=== PATIENT | female | born 2000 | race Caucasian/White ===

== ENCOUNTER 2025-05-26 16:20 | Outpatient (CLI) | payer OTHER, SELFPAY ==
--- OUTSIDE RECORDS SUMMARY | 2025-05-26 16:31 | XMS RPT_ITS | CCD ---
Author Organization [facility] Inform ion Partnership [facility] Care Team Providers Care [employer] Lab Technician Name Role Phone Unavailable Primary Care Provider Unavailabl e Plotts, Corrie Referring Unavailable Plotts, Corrie Attending Unavailable Plotts, Corrie Admitting Unavailable Care Physician, No Primary Primary Care Unava Mary Culp Attending Unavailable Kaiser OROURKE, Ramiro Attending Unavailable PLOTTS, CORRIE Attending Unavailable PLOTTS, CORRIE Attending Unavailable AIDA, BOUCHRA Attending Unavailable PLOTTS, CORRIE Attending Unavailable PLOTTS, CORRIE Attending Unavailable PLOTTS, CORRIE Referring Unavailable PLOTTS, CORRIE Referring Unavailable JUAN DANIEL, RAFAL L Attending Unavailable PLOTTS, CORRIE Referring Unavailable JUAN DANIEL, RAFAL L Attending Unavailable JUAN DANIEL, RAFAL L Attending Unavailable PLOTTS, CORRIE Attending Unavailable PLOTTS, CORRIE Referring Unavailable PLOTTS, CORRIE Attending Unavailable PLOTTS, CORRIE Referring Unavailable HANH HINES Attending Unavail able PLOTTS, CORRIE Attending Unavailable PLOTTS, CORRIE Attending Unavailable PLOTTS, CORRIE Attending Unavailable Medications Current Medications Medication Drug Class(es) Dates Sig (Normalized) Sig (Original) aspirin 81 mg delayed release oral tablet (13 sources) Platelet Aggregation Inhibitor, Nonsteroidal Anti-inflammatory Drug Start: 10-04-2024 take 1 tablet by mouth once daily aspirin, enteric coated (ECOTRIN LOW STRENGTH) 81 mg EC tablet Indications: with uncertain dates in first trimester (HCC) Take 1 tablet by mouth once daily. 90 tablet 3 10/04/2024 Active vits62/FA/om3/dha /epa ( GUMMY ORAL) (13 sources) vits62/FA/om3/dh a/epa ( GUMMY ORAL) Take by mouth. 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] Onset: 05-15-2025 Chronic Other complications of (3 sources) RhD negative; Translations: [Other specified related conditions, unspecified trimester] 02-26-2025 Episodic Other complications of (1 source) Other specified related conditions, unspecified trimester; Translations: [Rh negative state in antepartum period (HCC)] Onset: 04-22-2025 Episodic Other and delivery including normal (20 sources) with uncertain dates; Translations: [Encounter for supervision of normal , unspecified, first trimester] Onset: 10-04-2024 10-04-2024 Episodic Other upper respiratory disease (1 source) Other seasonal allergic rhinitis; Translations: [Other seasonal allergic rhinitis] Onset: 05-28-2024 Chronic Residual codes; unclassified (2 sources) Gestation period, 13 weeks; Translations: [13 weeks gestation of ] 11-14-2024 Episodic Residual codes; unclassified (1 source) Gestation period, 17 weeks; Translations: [17 weeks gestation of ] 12-12-2024 Episodic Residual codes; unclassified (1 source) Gestation period, 20 weeks; Translations: [20 weeks gestation of ] 01-01-2025 Episodic Residual codes; unclassified (1 source) Gestation period, 25 weeks; Translations: [25 weeks gestation of ] 02-05-2025 Episodic Residual codes; unclassified (1 source) Gestation period, 28 weeks; Translations: [28 weeks gestation of ] 02-26-2025 Episodic Residual codes; unclassified (1 source) Gestation period, 30 weeks; Translations: [30 weeks gestation of ] 03-14-2025 Episodic Residual codes; unclassified (1 source) Gestation period, 32 weeks; Translations: [32 weeks gestation of ] 03-29-2025 Episodic Residual codes; unclassified (1 source) 39 weeks gestation of ; Translations: [39 weeks gestation of (HCC)] Onset: 05-15-2025 Episodic Residual codes; unclassified (1 source) 38 weeks gestation of ; Translations: [38 weeks gestation of (HCC)] Onset: 05-09-2025 Episodic Residual codes; unclassified (1 source) 37 weeks gestation of ; Translations: [37 weeks gestation of (HCC)] Onset: 05-02-2025 Episodic Residual codes; unclassified (1 source) Unspecified blood type, Rh negative; Translations: [Rh negative state in antepartum period (HCC)] Onset: 04-22-2025 Episodic Residual codes; unclassified (1 source) 35 weeks gestation of ; Translations: [35 weeks gestation of (HCC)] Onset: 04-22-2025 Episodic Residual codes; unclassified (1 source) 34 weeks gestation of ; Translations: [34 weeks gestation of (HCC)] Onset: 04-10-2025 Episodic Residual codes; unclassified (1 source) 32 weeks gestation of ; Translations: [32 weeks gestation of (HCC)] Onset: 03-29-2025 Episodic Residual codes; unclassified (1 source) 30 weeks gestation of ; Translations: [30 weeks gestation of (HCC)] Onset: 03-14-2025 Episodic Residual codes; unclassified (1 source) 28 weeks gestation of ; Translations: [28 weeks gestation of (HCC)] Onset: 02-26-2025 Episodic Unclassified (13 sources) [facility] Education - COMMON Onset: 10-04-2024 10-04-2024 Unclassified (13 sources) Education - [place] Onset: 10-04-2024 10-04-2024 Unclassified (1 source) Acute cough; Translations: [Acute cough] Onset: 05-28-2024 Unclassified (1 source) Rubella non-immune status, antepartum ([facility]); Translations: [Rubella non-immune status, antepartum ([facility])] Onset: 11-15-2024 Past or Other Problems Problem Classification Problem Date Documented Da te Episodic/Chronic Immunizations and screening for infectious disease (5 sources) Patient encounter status; Translations: [Encounter for screening for human papillomavirus (HPV)] Onset: 07-20-2024 10-04-2024 Episodic Other complications of (14 sources) Rubella non-immune; Translations: [Supervision of other high risk pregnancies, unspecified trimester] Onset: 11-15-2024 11-15-2024 Episodic Other complications of (1 source) Supervision of other high risk pregnancies, unspecified trimester; Translations: [Rubella non-immune status, antepartum (HCC)] Onset: 11-15-2024 Episodic Other gastrointestinal disorders (1 source) Dysphagia, unspecified; Translations: [Dysphagia, unspecified] Onset: 05-28-2024 Episodic Other screening for suspected conditions (not mental disorders or infectious disease) (2 sources) Cancer cervix screening status; Translations: [Encounter for screening for malignant neoplasm of cervix] Onset: 01-01-2025 10-04-2024 Episodic Other upper respiratory infections (1 source) Acute sinusitis, unspecified; Translations: [Acute sinusitis, unspecified] Onset: 07-20-2024 Episodic Residual codes; unclassified (14 sources) Gestation period, 7 weeks; Translations: [Less than 8 weeks gestation of ] Onset: 10-04-2024 Resolved: 02-05-2025 10-04-2024 Episodic Residual codes; unclassified (1 source) 25 weeks gestation of ; Translations: [25 weeks gestation of (HCC)] Onset: 02-05-2025 Episodic Residual codes; unclassified (1 source) 20 weeks gestation of ; Translations: [20 weeks gestation of (HCC)] Onset: 01-01-2025 Episodic Residual codes; unclassified (1 source) 17 weeks gestation of ; Translations: [17 weeks gestation of (HCC)] Onset: 12-12-2024 Episodic Residual codes; unclassified (1 source) 13 weeks gestation of ; Translations: [13 weeks gestation of (HCC)] Onset: 11-14-2024 Episodic Results Test Name Value Interpretation Reference Range Facil ity ROUTINE, GROUP B ST REPTOCOCCUS BY PCRon 04-22-2025 ROUTINE, GROUP B STREPTOCOCCUS BY PCR Not detected Normal [facility] Comment on above: Performed By: #### T SPN #### [facility] CLIA [id number] [address] [place] [address] [place] CNPBanner 03-04-2025 CNPN Telephone (OBGYWM) REBAROSAS Marin ([id number]) 4 F Date Time Provider Department 03/04/25 CORRIE GARCIA OBGYWM During your visit today, we recorded the following information about you: Molly Romero RN 03/04/2025 9:11 AM Signed Breast pump order received from [facility]. To to sign. MARIA LUZ Agudelo Lindsey, RN 03/06/2025 10:36 AM Signed Order signed and faxed. Caitlyn Kahn RN Allergies As of Date: 03/04/2025 (No Known Allergies) Date Reviewed: 02/26/2025 Reviewed by: Carl Spicer LPN - Fully Assessed Reason for Visit: Breast Pump [Other] Prescriptions as of 03/06/2025 - aspirin, enteric coated (ECOTRIN LOW STRENGTH) 81 mg EC tablet Take 1 tablet by mouth once daily. - vits62/FA/om3/dha/epa ( GUMMY ORAL) Take by mouth. Facility-Administered Medications as of 03/06/2025 - RhoD immune globulin 300 mcg injection (RHOPHYLAC) Problem List As Of Date 03/04/2025 Noted Resolved Encounter for supervision of normal first pregn*10/04/2024 Uncomplicated asthma [J45.909] 10/04/2024 7 weeks gestation of (HCC) [Z3A.01] 10/04/2024 02/05/2025 Rubella non-immune status, antepartum (HCC) [O0*11/15/2024 Encounter Status:Closed by CAITLYN KAHN on 03/06/25 Normal [facility] CBC W Auto Differential pane l (Bld)on 02-26-2025 Basophils (Bld) [#/Vol] 0.03 10*3/uL Normal <0.11 [facility] Comment on above: Order Comment: Speci men Type: BLOOD SPECIMEN Ordering Facility: [facility] Address: [address] [place] [address] Performed By: #### T SPN #### [facility] CLIA [id number] [address] [place] [address] [place] Basophils/100 WBC (Bld) 0.3 % Normal [facility] Comment on above: Order Comment: Speci men Type: BLOOD SPECIMEN Ordering Facility: [facility] Address: [address] [place] [address] Performed By: #### T SPN #### [facility] CLIA [id number] [address] [place] [address] [place] Differential cell count method Nom (Bld) Auto Normal [facility] Comment on above: Order Comment: Speci men Type: BLOOD SPECIMEN Ordering Facility: [facility] Address: [address] [place] [address] Performed By: #### T SPN #### [facility] CLIA [id number] [address] [place] [address] [place] Eosinophils (Bld) [#/Vol] 0.09 10*3/uL Normal <0.46 [facility] Comment on above: Order Comment: Speci men Type: BLOOD SPECIMEN Ordering Facility: [facility] Address: [address] [place] [address] Performed By: #### T SPN #### [facility] CLIA [id number] [address] [place] [address] [place] Eosinophils/100 WBC (Bld) 1.0 % Normal [facility] Comment on above: Order Comment: Speci men Type: BLOOD SPECIMEN Ordering Facility: [facility] Address: [address] [place] [address] Performed By: #### T SPN #### [facility] CLIA [id number] [address] [place] [address] [place] Erythrocyte distribution width (RBC) [Ratio] 12.1 % Normal 11.5-15.0 [facility] Comment on above: Order Comment: Speci men Type: BLOOD SPECIMEN Ordering Facility: [facility] Address: [address] [place] [address] Performed By: #### T SPN #### [facility] CLIA [id number] [address] [place] [address] [place] Hematocrit (Bld) [Volume fraction] 31.6 % Low 36.0-46.0 [facility] Comment on above: Order Comment: Speci men Type: BLOOD SPECIMEN Ordering Facility: [facility] Address: [address] [place] [address] Performed By: #### T SPN #### [facility] CLIA [id number] [address] [place] [address] [place] Hemoglobin (Bld) [Mass/Vol] 11.2 g/dL Low 11.5-15.5 [facility] Comment on above: Order Comment: Speci men Type: BLOOD SPECIMEN Ordering Facility: [facility] Address: [address] [place] [address] Performed By: #### T SPN #### [facility] CLIA [id number] [address] [place] [address] [place] Immature granulocytes (Bld) [#/Vol] 0.04 10*3/uL Normal <0.10 [facility] Comment on above: Order Comment: Speci men Type: BLOOD SPECIMEN Ordering Facility: [facility] Address: [address] [place] [address] Performed By: #### T SPN #### [facility] CLIA [id number] [address] [place] [address] [place] Immature granulocytes/100 WBC (Bld) 0.5 % Normal [facility] Comment on above: Order Comment: Speci men Type: BLOOD SPECIMEN Ordering Facility: [facility] Address: [address] [place] [address] Performed By: #### T SPN #### [facility] CLIA [id number] [address] [place] [address] [place] Lymphocytes (Bld) [#/Vol] 1.77 10*3/uL Normal 1.00-4.00 [facility] Comment on above: Order Comment: Speci men Type: BLOOD SPECIMEN Ordering Facility: [facility] Address: [address] [place] [address] Performed By: #### T SPN #### [facility] CLIA [id number] [address] [place] [address] [place] Lymphocytes/100 WBC (Bld) 20.5 % Normal [facility] Comment on above: Order Comment: Speci men Type: BLOOD SPECIMEN Ordering Facility: [facility] Address: [address] [place] [address] Performed By: #### T SPN #### [facility] CLIA [id number] [address] [place] [address] [place] MCH (RBC) [Entitic mass] 30.2 pg Normal 26.0-34.0 [facility] Comment on above: Order Comment: Speci men Type: BLOOD SPECIMEN Ordering Facility: [facility] Address: [address] [place] [address] Performed By: #### T SPN #### [facility] CLIA [id number] [address] [place] [address] [place] MCHC (RBC) [Mass/Vol] 35.4 g/dL Normal 30.5-36.0 [facility] Comment on above: Order Comment: Speci men Type: BLOOD SPECIMEN Ordering Facility: [facility] Address: [address] [place] [address] Performed By: #### T SPN #### [facility] CLIA [id number] [address] [id number] [address] [place] MCV (RBC) [Entitic vol] 85.2 fL Normal 80.0-100.0 [facility] Comment on above: Order Comment: Speci men Type: BLOOD SPECIMEN Ordering Facility: [facility] Address: [address] [place] [address] Performed By: #### T SPN #### [facility] CLIA [id number] [address] [place] [address] [place] Monocytes (Bld) [#/Vol] 0.47 10*3/uL Normal <0.87 [facility] Comment on above: Order Comment: Speci men Type: BLOOD SPECIMEN Ordering Facility: [facility] Address: [address] [place] [address] Performed By: #### T SPN #### [facility] CLIA [id number] [address] [place] [address] [place] Monocytes/100 WBC (Bld) 5.4 % Normal [facility] Comment on above: Order Comment: Speci men Type: BLOOD SPECIMEN Ordering Facility: [facility] Address: [address] [place] [address] Performed By: #### T SPN #### [facility] CLIA [id number] [address] [place] [address] [place] Neutrophils (Bld) [#/Vol] 6.24 10*3/uL Normal 1.45-7.50 [facility] Comment on above: Order Comment: Speci men Type: BLOOD SPECIMEN Ordering Facility: [facility] Address: [address] [place] [address] Performed By: #### T SPN #### [facility] CLIA [id number] [address] [place] [address] [place] Neutrophils/100 WBC (Bld) 72.3 % Normal [facility] Comment on above: Order Comment: Speci men Type: BLOOD SPECIMEN Ordering Facility: [facility] Address: [address], [place] [address] Performed By: #### T SPN #### [facility] CLIA [id number] [address] [place] [address] [place] Nucleated RBC (Bld) [#/Vol] 10*3/uL Normal <0.01 [facility] Comment on above: Order Comment: Speci men Type: BLOOD SPECIMEN Ordering Facility: [facility] Address: [address] [place] [address] Performed By: #### T SPN #### [facility] CLIA [id number] [address] [place] [address] [place] Nucleated RBC/100 WBC (Bld) [Ratio] 0.0 /100 WBC Normal [facility] Comment on above: Order Comment: Speci men Type: BLOOD SPECIMEN Ordering Facility: [facility] Address: [address] [place] [address] Performed By: #### T SPN #### [facility] CLIA [id number] [address] [place] [address] [place] Platelet mean volume (Bld) [Entitic vol] 8.6 fL Low 9.0-12.7 [facility] Comment on above: Order Comment: Speci men Type: BLOOD SPECIMEN Ordering Facility: [facility] Address: [address] [place] [address] Performed By: #### T SPN #### [facility] CLIA [id number] [address] [place] [address] [place] Platelets (Bld) [#/Vol] 170 10*3/uL Normal 150-400 [facility] Comment on above: Order Comment: Speci men Type: BLOOD SPECIMEN Ordering Facility: [facility] Address: [address] [place] [address] Performed By: #### T SPN #### [facility] CLIA [id number] [address] [place] [address] [place] RBC (Bld) [#/Vol] 3.71 10*6/uL Low 3.90-5.20 [facility] Comment on above: Order Comment: Speci men Type: BLOOD SPECIMEN Ordering Facility: [facility] Address: [address] [place] [address] Performed By: #### T SPN #### [facility] CLIA [id number] [address] [place] [address] [place] WBC (Bld) [#/Vol] 8.64 10*3/uL Normal 3.70-11.00 [facility] Comment on above: Order Comment: Speci men Type: BLOOD SPECIMEN Ordering Facility: [facility] Address: [address] [place] [address] Performed By: #### T SPN #### [facility] CLIA [id number] [address] [place] [address] [place] GESTATIONAL GLUCOSE SCREEN, 1-HOUR, 50 GRAM, NON-FASTINGon 02-26-2025 Glucose [Mass/Vol] 108 mg/dL Normal 74-134 [facility] Comment on above: Order Comment: Speci men Type: BLOOD SPECIMEN Ordering Facility: [facility] Address: [address] [place] [address] Result Comment: [facility] Congress of Obstetricians and Gynecologists (Jose/Linda) guidelines state a gestational diabetes mellitus positive screen is made, in women not previously diagnosed with overt diabetes, when the 1 hr plasma glucose level is equal to or above 140 mg/dL. The [facility] Director Information and [facility] [place] recommends a 135 mg/dL cutoff. Performed By: #### T SPN #### [facility] CLIA [id number] [address] [place] [address] [place] Reagin and Treponema pallidu m IgG and IgM [Interp]on 02-26-2025 T. pallidum IgG+IgM IA Ql (S) Non-Reactive Normal Nonreactive [facility] Comment on above: Order Comment: Speci men Type: BLOOD SPECIMEN Ordering Facility: [facility] Address: [address] [place] [address] Performed By: #### T SPN #### [facility] CLIA [id number] [address] [place] [address] [place] Reagin+T pallidum IgG+IgM Se rPl-Impon 02-26-2025 Reagin and Treponema pallidum IgG and IgM [Interp] Cannot exclude recent Treponemal infection if specimen collected within 7-10 days after appearance of suspect lesions or 2-3 weeks after an exposure. Clinical correlation is required. Normal [facility] Comment on above: Order Comment: Speci men Type: BLOOD SPECIMEN Ordering Facility: [facility] Address: [address] [place] [address] Performed By: #### T SPN #### [facility] CLIA [id number] [address] [place] [address] [place] TYPE + SCREEN PRENATALon ABO A Normal [facility] Comment on above: Order Comment: Speci men Type: BLOOD SPECIMEN Ordering Facility: [facility] Address: [address] [place] [address] Performed By: #### T SPN #### [facility] CLIA [id number] [address] [place] [address] [place] Rh Nom (Bld) Negative Normal [facility] Comment on above: Order Comment: Speci men Type: BLOOD SPECIMEN Ordering Facility: [facility] Address: [address] [place] [address] Performed By: #### T SPN #### [facility] CLIA [id number] [address] [place] [address] [place] TYPE AND SCREEN EXPIRATION 03/01/2025 23:59 Normal [facility] Comment on above: Order Comment: Speci men Type: BLOOD SPECIMEN Ordering Facility: [facility] Address: [address] [place] [address] Performed By: #### T SPN #### [facility] CLIA [id number] [address] [place], [place] [address], [place] [address] [place] Examination level ultrasound on 01-01-2025 Indication Standard anatomic survey Impression The patient is referred for a standard anatomic survey. - Single, live, intrauterine . - biometry is consistent with the established gestational age. - No malformations were visualized on a complete standard anatomic survey. - The amniotic fluid volume is normal amount. - The placenta is posterior, fundal. - The Transabdominal cervical length measures 38.3 mm with no evidence of funneling or other dynamic changes. - Not all structural malformations can be detected by ultrasound examination. Recommendations Additional follow-up as clinically indicated. Maternal Assessment Height 173 cm Height (ft) 5 ft Height (in) 8 in Physical Exam Initial weight (lb) 172 lb Initial BMI 26.15 kg/m Maternal assessment other: 1 Para 0 REMOTE READ Method Transabdominal ultrasound examination. View: Adequate visualization Mccain . Number of fetuses: 1 Dating LMP on: 08/08/2024 GA by LMP 20 w + 6 d JOSE A by LMP: 05/15/2025 GA by prior assessment 20 w + 0 d JOSE A by prior assessment: 05/21/2025 Ultrasound examination on: 01/01/2025 GA by U/S based upon: AC, BPD, Femur, HC GA by U/S 20 w + 2 d JOSE A by U/S: 05/19/2025 Assigned: based on stated JOSE A, selected on 01/01/2025 Assigned GA 20 w + 0 d Assigned JOSE A: 05/21/2025 General Evaluation Cardiac activity present. FHR 159 bpm. movements: present, present. Presentation: breech Placenta: Placental site: posterior, fundal Umbilical cord: Cord vessels: 3 vessel cord Amniotic fluid: Amount of AF: normal amount. MVP 5.2 cm Growth Overview Exam date GA BPD (mm) HC (mm) AC (mm) FL (mm) HL (mm) EFW (g) 01/01/2025 20w 0d 45.6 41% 176.3 54% 167.5 92% 30.5 43% 30.4 57% 366 79% Biometry Standard BPD 45.6 mm 19w 5d 41% Hadlock OFD 64.1 mm 20w 3d 89% Nicolaides HC 176.3 mm 20w 1d 54% Luz Marina Cerebellum tr 21.3 mm 20w 1d 81% Hill Nuchal fold 3.0 mm AC 167.5 mm 21w 5d 92% Hadlock Femur 30.5 mm 19w 4d 43% Luz Marina Humerus 30.4 mm 20w 0d 57% Luz Marina EFW 366 g 20w 4d 79% Hadlock EFW (lb) 0 lb EFW (oz) 13 oz EFW by: Hadlock (HC-AC-FL) Extended Matchbook Maker 5.8 mm CM 5.2 mm 56% Nicolaides Extremities / Bony Struc FL / HC 0.17 5% Hadlock Other Structures FHR 159 bpm Anatomy Cranium: normal Lateral ventricles: normal Choroid plexus: normal Midline falx: normal Cavum septi pellucidi: normal Cerebellum: normal Cisterna magna: normal Head / Neck Vermis: Normal but not required for a standard anatomy exam Neck: Normal but not required for a standard anatomy exam Nuchal fold: Normal but not required for a standard anatomy exam Lips: normal Profile: Normal but not required for a standard anatomy exam Nose: Normal but not required for a standard anatomy exam Face Maxilla: Normal but not required for a standard anatomy exam Mandible: Normal but not required for a standard anatomy exam Orbits: Normal but not required for a standard anatomy exam Lens: Normal but not required for a standard anatomy exam 4-chamber view: normal RVOT view: normal LVOT view: normal 3-vessel view: normal 6-[id number]-[id number] view: normal Heart / Thorax Situs: situs solitus (normal) Aortic arch view: Normal but not required for a standard anatomy exam SVC: Normal but not required for a standard anatomy exam IVC: Normal but not required for a standard anatomy exam Cardiac axis: normal Rt lung: Normal but not required for a standard anatomy exam Lt lung: Normal but not required for a standard anatomy exam Diaphragm: normal Cord insertion: normal Stomach: normal Kidneys: normal Bladder: normal Genitals: normal Abdomen Abdom. wall: normal Cervical spine: normal Thoracic spine: normal Lumbar spine: normal Sacral spine: normal Arms: normal Legs: normal Rt upper arm: normal Rt forearm: normal Rt hand: normal Rt fingers: normal Lt upper arm: normal Lt forearm: normal Lt hand: normal Lt fingers: normal Rt upper leg: normal Rt lower leg: normal Rt foot: normal Lt upper leg: normal Lt lower leg: normal Lt foot: normal Gender: Unspecified Wants to know sex: no Maternal Structures Uterus / Cervix Uterus: Visualized Cervix: Visualized Approach: Transabdominal Cervical length 38.3 mm Other: Patient declined transvaginal ultrasound for cervical length. Ovaries / Tubes / Adnexa Rt ovary: Visualized Lt ovary: Visualized Performed By: Caitlyn Irving RDMS, RVT Read By: Rhonda Rashid M.D. MATERNAL MEDICINE [facility] Radiology Study observation (narrative) [facility] CBC W Auto Differential pane l (Bld)on 11-14-2024 Basophils (Bld) [#/Vol] 0.04 10*3/uL Normal <0.11 [facility] Comment on above: Order Comment: Speci men Type: BLOOD SPECIMEN Ordering Facility: [facility] Address: [address] [place] [address] Performed By: #### T SPN #### [facility] CLIA [id number] [address] [place] [address] [place] Basophils/100 WBC (Bld) 0.5 % Normal [facility] Comment on above: Order Comment: Speci men Type: BLOOD SPECIMEN Ordering Facility: [facility] Address: [address] [place] [address] Performed By: #### T SPN #### [facility] CLIA [id number] [address] [place] [address] [place] Differential cell count method Nom (Bld) Auto Normal [facility] Comment on above: Order Comment: Speci men Type: BLOOD SPECIMEN Ordering Facility: [facility] Address: [address] [place] [address] Performed By: #### T SPN #### [facility] CLIA [id number] [address] [place] [address] [place] Eosinophils (Bld) [#/Vol] 0.10 10*3/uL Normal <0.46 [facility] Comment on above: Order Comment: Speci men Type: BLOOD SPECIMEN Ordering Facility: [facility] Address: [address] [place] [address] Performed By: #### T SPN #### [facility] CLIA [id number] [address] [place] [address] [place] Eosinophils/100 WBC (Bld) 1.1 % Normal [facility] Comment on above: Order Comment: Speci men Type: BLOOD SPECIMEN Ordering Facility: [facility] Address: [address] [place] [address] Performed By: #### T SPN #### [facility] CLIA [id number] [address] [place] [address] [place] Erythrocyte distribution width (RBC) [Ratio] 11.9 % Normal 11.5-15.0 [facility] Comment on above: Order Comment: Speci men Type: BLOOD SPECIMEN Ordering Facility: [facility] Address: [address] [place] [address] Performed By: #### T SPN #### [facility] CLIA [id number] [address] [place] [address] [place] Hematocrit (Bld) [Volume fraction] 36.2 % Normal 36.0-46.0 [facility] Comment on above: Order Comment: Speci men Type: BLOOD SPECIMEN Ordering Facility: [facility] Address: [address] [place] [address] Performed By: #### T SPN #### [facility] CLIA [id number] [address] [place] [address] [place] Hemoglobin (Bld) [Mass/Vol] 12.9 g/dL Normal 11.5-15.5 [facility] Comment on above: Order Comment: Speci men Type: BLOOD SPECIMEN Ordering Facility: [facility] Address: [address] [place] [address] Performed By: #### T SPN #### [facility] CLIA [id number] [address] [place] [address] [place] Immature granulocytes (Bld) [#/Vol] 0.03 10*3/uL Normal <0.10 [facility] Comment on above: Order Comment: Speci men Type: BLOOD SPECIMEN Ordering Facility: [facility] Address: [address] [place] [address] Performed By: #### T SPN #### [facility] CLIA [id number] [address] [place] [address] [place] Immature granulocytes/100 WBC (Bld) 0.3 % Normal [facility] Comment on above: Order Comment: Speci men Type: BLOOD SPECIMEN Ordering Facility: [facility] Address: [address] [place] [address] Performed By: #### T SPN #### [facility] CLIA [id number] [address] [place] [address] [place] Lymphocytes (Bld) [#/Vol] 1.94 10*3/uL Normal 1.00-4.00 [facility] Comment on above: Order Comment: Speci men Type: BLOOD SPECIMEN Ordering Facility: [facility] Address: [address] [place] [address] Performed By: #### T SPN #### [facility] CLIA [id number] [address] [place] [address] [place] Lymphocytes/100 WBC (Bld) 22.1 % Normal [facility] Comment on above: Order Comment: Speci men Type: BLOOD SPECIMEN Ordering Facility: [facility] Address: [address] [place] [address] Performed By: #### T SPN #### [facility] CLIA [id number] [address] [place] [address] [place] MCH (RBC) [Entitic mass] 28.9 pg Normal 26.0-34.0 [facility] Comment on above: Order Comment: Speci men Type: BLOOD SPECIMEN Ordering Facility: [facility] Address: [address] [place] [address] Performed By: #### T SPN #### [facility] CLIA [id number] [address] [place] [address] [place] MCHC (RBC) [Mass/Vol] 35.6 g/dL Normal 30.5-36.0 [facility] Comment on above: Order Comment: Speci men Type: BLOOD SPECIMEN Ordering Facility: [facility] Address: [address] [place] [address] Performed By: #### T SPN #### [facility] CLIA [id number] [address] [place] [address] [place] MCV (RBC) [Entitic vol] 81.0 fL Normal 80.0-100.0 [facility] Comment on above: Order Comment: Speci men Type: BLOOD SPECIMEN Ordering Facility: [facility] Address: [address] [place] [address] Performed By: #### T SPN #### [facility] CLIA [id number] [address] [place] [address] [place] Monocytes (Bld) [#/Vol] 0.53 10*3/uL Normal <0.87 [facility] Comment on above: Order Comment: Speci men Type: BLOOD SPECIMEN Ordering Facility: [facility] Address: [address] [place] [address] Performed By: #### T SPN #### [facility] CLIA [id number] [address] [place] [address] [place] Monocytes/100 WBC (Bld) 6.0 % Normal [facility] Comment on above: Order Comment: Speci men Type: BLOOD SPECIMEN Ordering Facility: [facility] Address: [address] [place] [address] Performed By: #### T SPN #### [facility] CLIA [id number] [address] [place] [address] [place] Neutrophils (Bld) [#/Vol] 6.14 10*3/uL Normal 1.45-7.50 [facility] Comment on above: Order Comment: Speci men Type: BLOOD SPECIMEN Ordering Facility: [facility] Address: [address] [place] [address] Performed By: #### T SPN #### [facility] CLIA [id number] [address] [place] [address] [place] Neutrophils/100 WBC (Bld) 70.0 % Normal [facility] Comment on above: Order Comment: Speci men Type: BLOOD SPECIMEN Ordering Facility: [facility] Address: [address] [place] [address] Performed By: #### T SPN #### [facility] CLIA [id number] [address] [place] [address] [place] Nucleated RBC (Bld) [#/Vol] 10*3/uL Normal <0.01 [facility] Comment on above: Order Comment: Speci men Type: BLOOD SPECIMEN Ordering Facility: [facility] Address: [address] [place] [address] Performed By: #### T SPN #### [facility] CLIA [id number] [address] [place] [address] [place] Nucleated RBC/100 WBC (Bld) [Ratio] 0.0 /100 WBC Normal [facility] Comment on above: Order Comment: Speci men Type: BLOOD SPECIMEN Ordering Facility: [facility] Address: [address] [place] [address] Performed By: #### T SPN #### [facility] CLIA [id number] [address] [place] [address] [place] Platelet mean volume (Bld) [Entitic vol] 9.3 fL Normal 9.0-12.7 [facility] Comment on above: Order Comment: Speci men Type: BLOOD SPECIMEN Ordering Facility: [facility] Address: [address] [place] [address] Performed By: #### T SPN #### [facility] CLIA [id number] [address] [place] [address] [place] Platelets (Bld) [#/Vol] 176 10*3/uL Normal 150-400 [facility] Comment on above: Order Comment: Speci men Type: BLOOD SPECIMEN Ordering Facility: [facility] Address: [address] [place] [address] Performed By: #### T SPN #### [facility] CLIA [id number] [address] [place] [address] [place] RBC (Bld) [#/Vol] 4.47 10*6/uL Normal 3.90-5.20 [facility] Comment on above: Order Comment: Speci men Type: BLOOD SPECIMEN Ordering Facility: [facility] Address: [address] [place] [address] Performed By: #### T SPN #### [facility] CLIA [id number] [address] [place] [address] [place] WBC (Bld) [#/Vol] 8.78 10*3/uL Normal 3.70-11.00 [facility] Comment on above: Order Comment: Speci men Type: BLOOD SPECIMEN Ordering Facility: [facility] Address: [address] [place] [address] Performed By: #### T SPN #### [facility] CLIA [id number] [address] [place] [address] [place] Examination level ultrasound on 11-14-2024 Indication First trimester anatomic survey Impression The patient is referred for a first trimester anatomy scan including nuchal translucency measurement as clinically indicated. - Single, live, intrauterine . - Whittlesey rump length measurement is consistent with the established gestational age. - No malformations visualized on a complete first trimester anatomic assessment. - The nuchal translucency measurement is 1.8 mm. - Not all structural malformations can be detected by ultrasound examination. Maternal Structures: Right Ovary: Size 37 mm x 18 mm x 23 mm Left Ovary: Size 23 mm x 20 mm x 16 mm Recommendations Return for anatomy ultrasound Maternal Assessment Height 173 cm Height (ft) 5 ft Height (in) 8 in Physical Exam Initial weight (lb) 172 lb Initial BMI 26.15 kg/m Maternal assessment other: 1 Para 0 REMOTE READ Method Transabdominal ultrasound examination Mccain . Number of fetuses: 1 Dating LMP on: 08/08/2024 GA by LMP 14 w + 0 d JOSE A by LMP: 05/15/2025 GA by prior assessment 13 w + 1 d JOSE A by prior assessment: 05/21/2025 Ultrasound examination on: 11/14/2024 GA by U/S based upon: CRL GA by U/S 13 w + 1 d JOSE A by U/S: 05/21/2025 Assigned: based on stated JOSE A, selected on 11/14/2024 Assigned GA 13 w + 1 d Assigned JOSE A: 05/21/2025 General Evaluation Cardiac activity present Placenta: posterior Cord vessels: 3 vessel cord Amniotic fluid: normal amount Biometry Standard FHR 159 bpm CRL 68.7 mm 13w 1d 43% Hadlock NT 1.80 mm First Trimester Anatomy Calvarium: normal Falx cerebri: normal Choroid plexus: normal Profile: normal Nasal bone: normal Retronasal triangle: normal Maxilla: normal Mandible: normal Nuchal translucency: Unremarkable Situs: normal Cardiac position: normal Cardiac axis: normal 4-chamber view: visualized 4-chamber view with color: visualized 6-uaospj-mgdzcnn view: normal Abdominal cord insertion: normal Stomach: normal Kidneys: normal Bladder: normal Color doppler of perivesical umbilical arteries: normal Vertebral alignment: normal Arms: normal Hands: normal Legs: normal Feet: normal Maternal Structures Uterus / Cervix Uterus: Visualized Uterus length 111 mm Uterus width 101 mm Uterus height 84 mm Uterus Vol 494.0 cm Ovaries / Tubes / Adnexa Rt ovary: Visualized Rt ovary D1 37 mm Rt ovary D2 18 mm Rt ovary D3 23 mm Rt ovary Vol 8.0 cm Lt ovary: Visualized Lt ovary D1 23 mm Lt ovary D2 20 mm Lt ovary D3 16 mm Lt ovary Vol 3.8 cm Performed By: Caitlyn Irving RDMS, RVT Read By: Cece Brown M.D. MATERNAL MEDICINE [facility] Radiology Study observation (narrative) [facility] HBV surface Ag Ser Qlon 10-18 HBV surface Ag Ql (S) Negative Normal Negative [facility] Comment on above: Order Comment: Speci men Type: BLOOD SPECIMEN Ordering Facility: [facility] Address: [address] [place] [address] Performed By: #### T SPN #### [facility] CLIA [id number] [address] [place] [address] [place] HCV Ab Ser Qlon 11-14-2024 HCV Ab Ql (S) Negative Normal Negative [facility] Comment on above: Order Comment: Speci men Type: BLOOD SPECIMEN Ordering Facility: [facility] Address: [address] [place] [address] Result Comment: The result suggests no evidence of infection with Hepatitis C virus. Should recent infection be suspected, repeat testing may be considered 4-6 weeks after this draw. Performed By: #### T SPN #### [facility] CLIA [id number] [address] [place] [address] [place] HIV 1+2 Ab IA Qlon HIV 1 and 2 Ab IA.rapid Nom (S/P/Bld) Normal [facility] Comment on above: Order Comment: Speci men Type: BLOOD SPECIMEN Ordering Facility: [facility] Address: [address] [place] [address] Result Comment: Test not indicated. Performed By: #### T SPN #### [facility] CLIA [id number] [address] [place] [address] [place] HIV 1+2 Ab+HIV1 p24 Ag IA Ql Non-Reactive Normal Nonreactive [facility] Comment on above: Order Comment: Speci men Type: BLOOD SPECIMEN Ordering Facility: [facility] Address: [address] [place] [address] Performed By: #### T SPN #### [facility] CLIA [id number] [address] [place] [address] [place] HIV immunoassay testing algorithm interpretation (S/P/Bld) [Interp] Normal [facility] Comment on above: Order Comment: Speci men Type: BLOOD SPECIMEN Ordering Facility: [facility] Address: [address] [place] [address] Result Comment: No e vidence of HIV-1 or HIV-2 infection. Should recent infection be suspected, repeat testing may be considered 2-3 weeks after this draw. [place] Rev. Code 3701.243(E): This information has been disclosed to you from confidential records protected from disclosure by state law. You shall make no further disclosure of this information without the specific, written, and informed release of the individual to whom it pertains or as otherwise permitted by state law. A general authorization for the release of medical or other information is not sufficient for the purpose of the release of HIV test results or diagnoses. Performed By: #### T SPN #### [facility] CLIA [id number] [address] [place] [address] [place] HbA1c (Bld)on 11-14-2024 Average glucose Estimated from glycated hemoglobin (Bld) [Mass/Vol] 82 mg/dL Normal [facility] Comment on above: Order Comment: Speci men Type: BLOOD SPECIMEN Ordering Facility: [facility] Address: [address] [place] [address] Result Comment: eAG: (Estimated average glucose) is a calculated value from HgbA1c and is pest control service representative of the average blood glucose level in the last 2-3 month period. Performed By: #### T SPN #### [facility] CLIA [id number] [address] [place] [address] [place] HbA1c (Bld) [Mass fraction] 4.5 % Normal 4.3-5.6 [facility] Comment on above: Order Comment: Speci men Type: BLOOD SPECIMEN Ordering Facility: [facility] Address: [address] [place] [address] Result Comment: [place] Diabetes Association guidelines indicate that patients with HgbA1c in the range 5.7-6.4% are at increased risk for development of diabetes, and intervention by lifestyle modification may be beneficial. HgbA1c greater or equal to 6.5% is considered diagnostic of diabetes. Performed By: #### T SPN #### [facility] CLIA [id number] [address] [place] [address] [place] RUBELLA IGG ANTIBODYon 11-14 RUBELLA IGG AB, QUAL Negative Abnormal Positive [facility] Comment on above: Order Comment: Mariana sanchez Type: BLOOD SPECIMEN Ordering Facility: [facility] Address: [address] [place] [address] Result Comment: The result suggests no history of Rubella vaccination or exposure to Rubella virus, however, some individuals with past history of Rubella vaccination may test negative using this test as immunity to Rubella virus wanes over time after vaccination. Please correlate with vaccination history if applicable. Performed By: #### T SPN #### [facility] CLIA [id number] [address] [place] [address] [place] Reagin and Treponema pallidu m IgG and IgM [Interp]on 11-14-2024 T. pallidum IgG+IgM IA Ql (S) Non-Reactive Normal Nonreactive [facility] Comment on above: Order Comment: Mariana sanchez Type: BLOOD SPECIMEN Ordering Facility: [facility] Address: [address] [place] [address] Performed By: #### T SPN #### [facility] CLIA [id number] [address] [place] [address] [place] Reagin+T pallidum IgG+IgM Se rPl-Impon 11-14-2024 Reagin and Treponema pallidum IgG and IgM [Interp] Cannot exclude recent Treponemal infection if specimen collected within 7-10 days after appearance of suspect lesions or 2-3 weeks after an exposure. Clinical correlation is required. Normal [facility] Comment on above: Order Comment: Speci men Type: BLOOD SPECIMEN Ordering Facility: [facility] Address: [address] [place] [address] Performed By: #### T SPN #### [facility] CLIA [id number] [address] [place] [address] [place] TYPE + SCREEN PRENATALon ABO A Normal [facility] Comment on above: Order Comment: Speci men Type: BLOOD SPECIMEN Ordering Facility: [facility] Address: [address] [place] [address] Performed By: #### T SPN #### [facility] CLIA [id number] [address] [place] [address] [place] Rh Nom (Bld) Negative Normal [facility] Comment on above: Order Comment: Speci men Type: BLOOD SPECIMEN Ordering Facility: [facility] Address: [address] [place] [address] Performed By: #### T SPN #### [facility] CLIA [id number] [address] [place] [address] [place] TYPE AND SCREEN EXPIRATION 11/17/2024 23:59 Normal [facility] Comment on above: Order Comment: Speci men Type: BLOOD SPECIMEN Ordering Facility: [facility] Address: [address] [place] [address] Performed By: #### T SPN #### [facility] CLIA [id number] [address] [place] [address] [place] Bacteria Ur Culton Bacteria identified Cx Nom (U) ORGANISM ID: 1 10,000 -<50,000 CFU/ml Normal urogenital conner Normal [facility] Comment on above: Performed By: #### T SPN #### [facility] CLIA [id number] [address] [place] [address] [place] C. trachomatis+N. gonorrhoea e DNA LETTY+probe Ql (Unsp spec)on 10-04-2024 C. trachomatis rRNA LETTY+probe Ql (Unsp spec) Not detected Normal Not detected [facility] Comment on above: Order Comment: Speci men Type: BLOOD SPECIMEN Ordering Facility: [facility] Address: [address] [place] [address] Performed By: #### T SPN #### [facility] CLIA [id number] [address] [place] [address] OF [facility] N. gonorrhoeae rRNA LETTY+probe Ql (Unsp spec) Not detected Normal Not detected [facility] Comment on above: Order Comment: Speci men Type: BLOOD SPECIMEN Ordering Facility: [facility] Address: [address] [place] [address] Performed By: #### T SPN #### [facility] CLIA [id number] [address] [place] [address] [place] PAP TESTon 10-04-2024 ADEQUACY Normal [facility] Comment on above: Order Comment: Speci men Type: FLUID SPECIMEN Ordering Facility: [facility] Address: [address] [place] [address] Result Comment: Sati sfactory for interpretation. Transformation zone present Performed By: #### L [id number] #### [facility] CLIA [id number] [address] [place] [address] STATES [facility] CLIA [id number] [address] [place] [address] [place] CASE REPORT Normal [facility] Comment on above: Order Comment: Speci men Type: FLUID SPECIMEN Ordering Facility: [facility] Address: [address] [place] [address] Result Comment: Gyne cologic Cytology Report Case: [id number] Authorizing Provider: Corrie Garcia APRN.CNM Collected: 10/04/2024 09:34 AM Ordering Location: OB/Gynecology Received: 10/04/2024 12:21 PM First Screen: Charli, Ernestina, CT, ASCP Specimen: Pap Test, ThinPrep, Cervix Performed By: #### L [id number] #### [facility] CLIA [id number] [address] [place] [address] [place] [facility] CLIA [id number] [address] [place] [address] [place] CLINICAL HISTORY, CYTOLOGY, MARKETING ASSISTANT Routine Exam Normal [facility] Comment on above: Order Comment: Speci men Type: FLUID SPECIMEN Ordering Facility: [facility] Address: [address] [place] [address] Performed By: #### L [id number] #### [facility] CLIA [id number] [address] [place] [address] [place] [facility] CLIA [id number] [address] [place] [address] [place] FINAL PERFORMING LAB Normal [facility] Comment on above: Order Comment: Speci men Type: FLUID SPECIMEN Ordering Facility[facility] Address: [address] [place] [address] Result Comment: Tech nical component, gear nicker screening performed at [facility], [address] [place] [address] CLIA# [id number] Diagnostic interpretation performed at [facility], [address] [place] [address], [place] [address] CLIA# [id number] Loss Control Technician: Loretta Thakur M.D. Performed By: #### L [id number] #### [facility] CLIA [id number] [address] [place] [address] [place] [facility] CLIA [id number] [address] [place] [address] [place] INTERPRETATION, CYTOLOGY, MARKETING ASSISTANT Normal [facility] Comment on above: Order Comment: Speci men Type: FLUID SPECIMEN Ordering Facility: [facility] Address: [address] [place] [address] Result Comment: Nega tive for intraepithelial lesion or malignancy. at 1504 EDT Performed By: #### L [id number] #### [facility] CLIA [id number] [address] [place] [address] [place] [facility] CLIA [id number] [address] [place] [address] [place] LMP 08/08/2024 Normal [facility] Comment on above: Order Comment: Speci men Type: FLUID SPECIMEN Ordering Facility: [facility] Address: [address] [place] [address] Performed By: #### L [id number] #### [facility] CLIA [id number] [address] [place] [address] STATES OF [facility] CLIA [id number] [address] [place] [address] [place] PAP DISCLAIMER COMMENT The Pap Smear is a screening test for cervical cancer. False negative results occur with all screening tests, emphasizing the need for rescreening at recommended intervals, and clinical correlation. Normal [facility] Comment on above: Order Comment: Speci men Type: FLUID SPECIMEN Ordering Facility: [facility] Address: [address] [place] [address] Performed By: #### L [id number] #### [facility] CLIA [id number] [address] [place] [address] STATES [facility] CLIA [id number] [address] [place] [address] [place] PAP TELECOMMUNICATIONS OPERATOR COMMENT This specimen has been analyzed by the ThinPrep Imaging System, an automated imaging and review system, which assists the laboratory in evaluating cells on ThinPrep Pap tests. Following automated imaging, selected skaggs from every slide are reviewed by a gear nicker. Normal [facility] Comment on above: Order Comment: Speci men Type: FLUID SPECIMEN Ordering Facility: [facility] Address: [address] [place] [address] Performed By: #### L [id number] #### [facility] CLIA [id number] [address] [place] [address] [place] [facility] CLIA [id number] [address] [place] [address] [place] POC CORE MACHINE OPERATOR ULTRASOUNDon 10-05-19 Indication Viability; confirm cardiac activity, Uncertain dates Impression Single intrauterine gestational sac, cardiac activity is visualized, CRL indicates discrepancy from clinical dates, JOSE A based on today's ultrasound Recommendations Follow up for 1st Trimester Anatomy with Nuchal Translucency as clinically indicated if desired. Method Transvaginal ultrasound examination Mccain . Number of embryos: 1 Dating LMP on: 08/08/2024 GA by LMP 8 w + 1 d JOSE A by LMP: 05/15/2025 Ultrasound examination on: 10/04/2024 GA by U/S based upon: CRL GA by U/S 7 w + 1 d JOSE A by U/S: 05/22/2025 Assigned: based on ultrasound (CRL), selected on 10/04/2024 Assigned GA 7 w + 1 d Assigned JOSE A: 05/22/2025 Biometry Standard CRL 10.6 mm 7w 1d 92% Hadlock Assessment Gestational sac: visualized Location: intrauterine Yolk sac: visualized Embryo: visualized CRL 10.6 mm 7w 1d 92% Hadlock Cardiac activity: present General Evaluation Cardiac activity present Performed By: Corrie Garcia CNM Read By: Corrie Garcia CNM MATERNAL MEDICINE [facility] Radiology Study observation (narrative) [facility] TRICHOMONAS VAGINALIS NAATon 10-04-2024 T. vaginalis DNA LETTY+probe Ql (Unsp spec) Not detected Normal Not detected [facility] Comment on above: Order Comment: Speci men Type: BLOOD SPECIMEN Ordering Facility: [facility] Address: [address] [place] [address] Performed By: #### T SPN #### [facility] [place] [id number] [address] [place], [place] [address] [address] [place] Urgent Care Visit Reporton 0 07-20-2024 Urgent Care Visit Report [facility] [address], [address] [place] [address] OFFICE VISIT Date of Service: 07/20/24 MR#: [id number] Acct: [id number] Name: Rosas Britton Rep #: [id number] : 2000 Provider: SHARAD Drake Age/Sex: 23/F Location: [facility] Status: Signed Intake Vital Signs 07/19/23 12:13 07/20/24 16:01 Height 5 ft 4 in BP 110/60 Blood Pressure Location Lt brachial Position Sitting Respiration 16 Pulse 73 Pulse Source NIBP Temp 98.3 F Temp Source Oral Pulse Oximetry (%) 98 Oxygen Delivery Method room air Intake Visit Reasons: HEADACHE, COUGH Chief Complaint: cough, MCDANIEL, ST, congestion Readiness Paraprofessional Required: No Is patient in pain?: No Allergies No Known Allergies Allergy (Verified 07/20/24 16:01) Medications ???Medication ???Instructions ???Recorded ???Confirmed ???Type pseudoephedrine 60 mg-DM 15 1 tab PO Q4-6H PRN cold symptoms 07/20/24 07/20/24 Rx mg-guaifenesin 400 mg tablet #20 tabs (Capmist DM) Is last menstrual period known: No Post menopausal: No Patient : No Have you fallen in the past year?: No Nurse's Note: cough, MCDANIEL, ST, congestion x 3 days. denies fever/ BA HPI HPI Chief Complaint: cough, MCDANIEL, ST, congestion Details: Rosas Britton, is a 23 F who presents to the office today for complaint of cough, headache, sore throat and congestion for the past 3 days. Patient denies fever, chills, sweats. No nausea, vomiting or diarrhea. No hemoptysis, shortness of breath or difficulty breathing. No loss of taste or smell. No other associated symptoms or alleviating/aggravati ng factors. ROS Const Constitutional: Positive for other (ROS negative x6 except what was placed in HPI) Exam Const General: cooperative and healthy appearing [facility] Head: normal to inspection Ears: hearing grossly normal bilaterally, TM's normal bilaterally and EAC's normal Nose: nasal discharge purulent Face and sinus: sinus tenderness frontal and maxillary Mouth: oral mucosae normal Throat: abnormal tonsil bilaterally erythema and hypertrophy 1+ and postnasal drainage Resp Effort Inspection: normal respiratory effort Auscultation: Bilateral: Clear to Auscultation Cardio Palpation: normal PMI Rate: regular rate Rhythm: regular rhythm Neuro General: patient alert and CN's II-XI intact bilaterally Psych Appearance: grossly normal Mental Status: mental status grossly normal Results POC LUCERO Covid FluAB PCR POC Lucero Covid PCR Not Detected Last Edit by Asuncion Parra on 07/20/24 16:19 POC LUCERO FLU NOT DETECTED FLU A B Last Edit by Asuncion Parra on 07/20/24 16:19 Coding Level of Care Code Off vis,est,level 3 Diagnoses Contact with or suspected exposure to other viral communicable disease Z20.828 Acute sinusitis J01.90 Assessment and Plan Assessment and Plan (1) Contact with or suspected exposure to other viral communicable disease: Status: Acute (2) Acute sinusitis: Status: Acute Orders: Orders POC Lucero Covid FLUAB PCR Today Medications: New nhyswxsnlynsmgd-DH-vi aifenesin 60-15-400 mg (Capmist DM) do not exceed 4 doses per 24 hrs 1 TAB PO Q4-6H PRN 20 tabs 0RF cold symptoms Plan Patient tested negative for COVID and influenza in the office today. Capmist as prescribed today. Encouraged to get plenty of rest, drink lots of clear liquids, and use Tylenol or Ibuprofen (unless contraindicated) for fever and comfort. Patient also educated on other symptomatic management techniques. To be seen in 7-10 days if no improvement; sooner if worsening of symptoms. Patient advised of potential red flags and when appropriate to report to the ED. Patient verbalized understanding and agreement with all the above. Clinical Quality Measures Falls Risk Screening/Assistive Devices Have you fallen in the past year?: No 07/20/24 1629 Date Ramiro Grace Signature: Date (if applicable) CC: Normal [facility] Urgent Care Visit Reporton 1 07-19-2023 Urgent Care Visit Report [facility] [address], [address] [place] [address] OFFICE VISIT Date of Service: 05/19/24 MR#: [id number] Acct: [id number] Name: Rosas Britton Rep #: [id number] : 2000 Provider: SUNITA Ho Age/Sex: 23/F Location: [facility] Status: Signed Intake Vital Signs 05/19/24 11:03 BP 102/58 L Blood Pressure Location Lt brachial Position Sitting Respiration 15 Pulse 91 Pulse Source NIBP Temp 98.2 F Temp Source Oral Pulse Oximetry (%) 98 Oxygen Delivery Method room air Intake Visit Reasons: Cough Chief Complaint: cough Readiness Paraprofessional Required: No Is patient in pain?: No Allergies No Known Allergies Allergy (Verified 05/19/24 11:21) Medications ???Medication ???Instructions ???Recorded ???Confirmed ???Type omeprazole 20 mg capsule,delayed 20 mg PO BID 6 weeks #90 caps 05/19/24 05/19/24 Rx release Is last menstrual period known: No Post menopausal: No Patient : No Have you fallen in the past year?: No Nurse's Note: cough for over 1 month worse after eating and at bedtime. also notices more recently occasional food sticking. HPI HPI Chief Complaint: cough Details: Rosas Britton, is a 23 F who presents to the office today for cough -sx started over 1 month ago -a lot of change have happened went on honeymoon, moved into new house and got a new dog -use to get allergy shots x1 wk- none for 5 years -no fever or chills, body aches, ST -cough is dry -triggers right before bed it starts and after she eats worse -no hx of heartburn or indigestion- dad side of family with acid reflux- gets sensation that solid food getting stuck -no sob -tried so far claritin no reflux measures ROS Const Constitutional: Positive for other (ROS negative x6 except what was placed in HPI) Exam Const General: cooperative, comfortable and no acute distress Orientation: alert, awake and oriented x3 [facility] Head: normal to inspection and normocephalic Ears: hearing grossly normal bilaterally, external ears normal and TM's normal bilaterally Nose: external nose normal and other (mild congestion ) Face and sinus: normal facial exam, sinuses nontender and face symmetric Mouth: oral mucosae normal, lip normal, tongue normal, oropharynx normal and moist mucous membranes Throat: posterior oropharynx normal, tonsils normal and uvula midline Neck Neck: normal visual inspection, full ROM and no lymphadenopathy Resp Effort Inspection: normal respiratory effort, able to speak in complete sentences and symmetric chest movement Auscultation: Bilateral: Clear to Auscultation, Left: Clear to Auscultation and Right: Clear to Auscultation Cardio Rate: regular rate Rhythm: regular rhythm Heart Sounds: S1 normal and S2 normal GI Auscultation: normal bowel sounds Palpation: soft Skin General: no rashes or lesions noted and turgor normal Neuro General: patient alert, patient awake and patient oriented x3 Cognition: normal cognition Speech: speech normal Psych Appearance: grossly normal Mental Status: mental status grossly normal Attitude: cooperative Thought Process: normal Thought Content: normal Coding Level of Care Code Off vis,est,level 3 Diagnoses Acute cough R05.1 Cough type: acute Seasonal allergies J30.2 Dysphagia, unspecified type R13.10 Dysphagia type: unspecified Assessment and Plan Assessment and Plan (1) Cough: Status: Acute Qualifiers: Cough type: acute Qualified Code(s): R05.1 - Acute cough Plan: -sx concerning for reflux will do trial of omeprazole twice a day for 6 wks to see if gets relief- to follow up with pcp for possible EGD referral -reflux measures (2) Seasonal allergies: Status: Acute Plan: -continue with daily claritin- avoid triggers (3) Dysphagia: Status: Acute Qualifiers: Dysphagia type: unspecified Qualified Code(s): R13.10 - Dysphagia, unspecified Plan: per 1 Please follow up with your Primary Care Physician for ongoing chronic problems. If symptoms change or worsen, please present to Emergency Room for further evaluation 1. See visit diagnoses, disposition, and orders. 2. Reviewed and updated medication list; Discussed probable diagnosis, test results if available in office today and management options with patient/guardian: agreed to the medical plan above 3. Education provided regarding visit today, see after visit summary. Instruction provided in the use of fluids, vaporizer, acetaminophen, and/or other OTC medication for symptom control. Explained use of antibiotics only for proven or strongly suspected bacterial infections. 4. Prevention and health maintenance with primary care provider. 5. Patient/guardian educated to proceed to ED with worsening of condition, changes, or failure to improve. (more content not included)... Normal [facility] Vital Signs Date Time Vital Sign Value Performing Clinician Rhonda willson 03-29-2025 10:59-0400 Body mass index (BMI) [Ratio] 34.78 kg/m2 Corrie Plotts LINT CLEANER.CNM Work Phone: [facility] 03-29-2025 10:59-0400 Body weight 94.8 kg Corrie Plotts LINT CLEANER.CNM Work Phone: [facility] 03-29-2025 10:59-0400 Diastolic blood pressure 60 mm[Hg] Corrie Plotts LINT CLEANER.CNM Work Phone: [facility] 03-29-2025 10:59-0400 Systolic blood pressure 118 mm[Hg] Corrie Plotts LINT CLEANER.CNM Work Phone: [facility] 03-14-2025 11:02-0400 Body mass index (BMI) [Ratio] 33.61 kg/m2 Corrie Plotts LINT CLEANER.CNM Work Phone: [facility] 03-14-2025 11:02-0400 Body weight 91.63 kg Corrie Plotts LINT CLEANER.CNM Work Phone: [facility] 03-14-2025 11:02-0400 Diastolic blood pressure 60 mm[Hg] Corrie Plotts LINT CLEANER.CNM Work Phone: [facility] 03-14-2025 11:02-0400 Systolic blood pressure 110 mm[Hg] Corrie Plotts LINT CLEANER.CNM Work Phone: [facility] 02-26-2025 08:09-0400 Body mass index (BMI) [Ratio] 33.45 kg/m2 Hanh Acevedo MD Work Phone: [facility] 02-26-2025 08:09-0400 Body weight 91.17 kg Hanh Acevedo MD Work Phone: [facility] 02-26-2025 08:09-0400 Diastolic blood pressure 60 mm[Hg] Hanh Acevedo MD Work Phone: [facility] 02-26-2025 08:09-0400 Systolic blood pressure 110 mm[Hg] Hanh Acevedo MD Work Phone: [facility] 02-05-2025 12:37-0400 Body mass index (BMI) [Ratio] 32.85 kg/m2 Rafal Resendiz MD Work Phone: [facility] 02-05-2025 12:37-0400 Body weight 89.54 kg Rafal Resendiz MD Work Phone: [facility] 02-05-2025 12:37-0400 Diastolic blood pressure 72 mm[Hg] Rafal Resendiz MD Work Phone: [facility] 02-05-2025 12:37-0400 Systolic blood pressure 120 mm[Hg] Rafal Resendiz MD Work Phone: [facility] 01-01-2025 10:05-0400 Body mass index (BMI) [Ratio] 30.62 kg/m2 Rafal Resendiz MD Work Phone: [facility] 01-01-2025 10:05-0400 Body weight 83.46 kg Rafal Resendiz MD Work Phone: [facility] 01-01-2025 10:05-0400 Diastolic blood pressure 60 mm[Hg] Rafal Resendiz MD Work Phone: [facility] 01-01-2025 10:05-0400 Systolic blood pressure 110 mm[Hg] Rafal Resendiz MD Work Phone: [facility] 12-12-2024 10:15-0400 Body mass index (BMI) [Ratio] 29.62 kg/m2 Rafal Resendiz MD Work Phone: [facility] 12-12-2024 10:15-0400 Body weight 80.74 kg Rafal Resendiz MD Work Phone: [facility] 12-12-2024 10:15-0400 Diastolic blood pressure 70 mm[Hg] Rafal Resendiz MD Work Phone: [facility] 12-12-2024 10:15-0400 Systolic blood pressure 114 mm[Hg] Rafal Resendiz MD Work Phone: [facility] 11-14-2024 13:45-0400 Body mass index (BMI) [Ratio] 29.05 kg/m2 Corrie Plotts LINT CLEANER.CNM Work Phone: [facility] 11-14-2024 13:45-0400 Body weight 79.2 kg Corrie Plotts LINT CLEANER.CNM Work Phone: [facility] 11-14-2024 13:45-0400 Diastolic blood pressure 66 mm[Hg] Corrie Plotts LINT CLEANER.CNM Work Phone: [facility] 11-14-2024 13:45-0400 Systolic blood pressure 122 mm[Hg] Corrie Plotts LINT CLEANER.CNM Work Phone: [facility] 10-04-2024 08:40-0400 Body height 165.1 cm Corrie Plotts LINT CLEANER.CNM Work Phone: [facility] 10-04-2024 08:40-0400 Body mass index (BMI) [Ratio] 28.62 kg/m2 Corrie Plotts LINT CLEANER.CNM Work Phone: [facility] 10-04-2024 08:40-0400 Body weight 78.02 kg Corrie Plotts LINT CLEANER.CNM Work Phone: [facility] 10-04-2024 08:40-0400 Diastolic blood pressure 64 mm[Hg] Corrie Plotts LINT CLEANER.CNM Work Phone: [facility] 10-04-2024 08:40-0400 Systolic blood pressure 110 mm[Hg] Corrie Plotts LINT CLEANER.CNM Work Phone: [facility] Encounters Encounter Date Encounter Type Care Provider Facility Start: 05-20-2025 End: 05-20-2025 ambulatory Corrie Garcia Facility:[facility] Start: 05-15-2025 End: 05-15-2025 ambulatory CORRIE GARCIA Facility:[facility] Start: 05-09-2025 End: 05-09-2025 ambulatory BOUCHRA PARRA Facility:[facility] Start: 05-02-2025 End: 05-02-2025 ambulatory CORRIE GARCIA Facility:[facility] Start: 04-22-2025 End: 04-22-2025 ambulatory [facility] Facility:[facility] Start: 04-10-2025 End: 04-10-2025 ambulatory [facility] Facility:[facility] Start: 03-29-2025 End: 03-29-2025 Patient encounter procedure Corrie Blakeaniyah LINT CLEANER.KAVIN Work Phone: OB/Gynecology Comment on above: Encounter for superv ision of normal first in second trimester (HCC) (Primary Dx); 32 weeks gestation of (HCC); Rh negative state in antepartum period ([facility]) Start: 03-29-2025 End: 03-29-2025 [facility] Facility:[facility] Start: 03-26-2025 End: 03-26-2025 ambulatory [facility] LINT CLEANER.CNM Work Phone: OB/Gynecology Comment on above: Allergy medicine Start: 03-14-2025 End: 03-14-2025 Patient encounter procedure Corrie Blakeaniyah KABAN.CNScotty Work Phone: OB/Gynecology Comment on above: Encounter for superv ision of normal first in second trimester (HCC) (Primary Dx); 30 weeks gestation of (HCC); Rh negative state in antepartum period ([facility]); Rubella non-immune status, antepartum ([facility]) Start: 03-14-2025 End: 03-14-2025 [facility] Start: 03-04-2025 End: 03-06-2025 Telephone encounter Corrie Garcia APRN.KAVIN Work Phone: OB/Gynecology Comment on above: Breast Pump Start: 02-26-2025 End: 02-26-2025 Patient encounter procedure Hanh Acevedo MD Work Phone: OB/Gynecology Comment on above: Encounter for superv ision of normal first in second trimester (HCC) (Primary Dx); Rh negative state in antepartum period (HCC); 28 weeks gestation of (HCC); Encounter for supervision of normal first in first trimester (HCC) Start: 02-26-2025 End: 02-26-2025 ambulatory HANH ACEVEDO Facility:[facility] Start: 02-05-2025 End: 02-05-2025 Patient encounter procedure Rafal Resendiz MD Work Phone: OB/Gynecology Comment on above: Encounter for superv ision of normal first in second trimester (HCC) (Primary Dx); 25 weeks gestation of (HCC); Encounter for supervision of normal first in first trimester (HCC) Start: 02-05-2025 End: 02-05-2025 ambulatory RAFAL RESENDIZ Facility:[facility] Start: 01-01-2025 End: 01-01-2025 Patient encounter procedure Whi Tech 1 Efficiency Clerk [facility] Comment on above: Encounter for anatomic survey (HCC) [Z36.89] (Primary Dx); with uncertain dates in first trimester ([facility]) Encounter for superv ision of normal first in second trimester ([facility]) (Primary Dx); 20 weeks gestation of ([facility]) Start: 01-01-2025 End: 01-01-2025 ambulatory CORRIE GARCIA Facility:[facility] Start: 12-12-2024 End: 12-12-2024 Patient encounter procedure Rafal Resendiz MD Work Phone: OB/Gynecology Comment on above: Encounter for superv ision of normal first in second trimester (HCC) (Primary Dx); Rubella non-immune status, antepartum ([facility]); 17 weeks gestation of ([facility]) Start: 12-12-2024 End: 12-12-2024 ambulatory RAFAL RESENDIZ Facility:[facility] Start: 11-14-2024 End: 11-14-2024 ambulatory CORRIE GARCIA Facility:[facility] Start: 11-14-2024 End: 11-14-2024 Patient encounter procedure Corrie Garcia LINT CLEANER.CNM Work Phone: OB/Gynecology Comment on above: 13 weeks gestation o f (HCC) (Primary Dx); Encounter for supervision of normal first in second trimester (HCC); Encounter for supervision of normal first in first trimester (HCC) Encounter for antena keisha screening for malformation using ultrasound (HCC) (Primary Dx); Encounter for (NT) nuchal translucency scan (HCC); 13 weeks gestation of (HCC) Start: 11-14-2024 End: 11-14-2024 ambulatory CORRIE GARCIA Facility:[facility] Start: 10-04-2024 End: 12-04-2024 Follow-up encounter Corrie Garcia LINT CLEANER.KAVIN Work Phone: OB/Gynecology Start: 10-04-2024 End: 10-04-2024 ambulatory CORRIE GARCIA Facility:[facility] Start: 10-04-2024 End: 10-04-2024 Patient encounter procedure Corrie Garcia LINT CLEANER.CNM Work Phone: OB/Gynecology Comment on above: with uncer tain dates in first trimester (Primary Dx); Screening for cervical cancer; Screening for human papillomavirus; Encounter for supervision of normal first in first trimester; Uncomplicated asthma, unspecified asthma severity, unspecified whether persistent; 7 weeks gestation of Start: 07-20-2024 End: 07-20-2024 ambulatory Ramiro OROURKE Facility:[facility] Start: 05-19-2024 End: 05-19-2024 ambulatory Mary Ho Facility:[facility] Procedures Date Procedure Procedure Detail Performing Clinician Start: 02-26-2025 Antibody screen AMANDA GARCIA Comment on above: Order Comment: Speci men Type: BLOOD SPECIMEN Ordering Facility: [facility] Address: [address] [place] [address] Performed By: #### T SPN #### [facility] CLIA [id number] [address] [place] [address] [place] Start: 01-01-2025 Us preg uterus after 1st trimest 07/18 gestation Corrie Garcia LINT CLEANER.CNM Work Phone: Start: 11-14-2024 Antibody screen AMANDA GARCIA Comment on above: Order Comment: Mariana sanchez Type: BLOOD SPECIMEN Ordering Facility: [facility] Address: [address] [place] [address] Performed By: #### T SPN #### [facility] CLIA [id number] [address] [place] [address] [place] Start: 11-14-2024 Us preg uterus after 1st trimest 1/1st gestation Corrie Garcia APRN.CNM Work Phone: Start: 10-04-2024 Us uterus limited 1/> fetuses Corrie Garcia APRN.CNM Work Phone: Plan of Treatment Date Care Activity Detail Author Start: 2077 RSV Vaccine (1 - 1-d ose 75+ series) RSV Vaccine (1 - 1-dose 75+ series) [facility] Start: 10-05-2027 Screening for malign ant neoplasm of cervix Cervical Cancer Screening [facility] Start: 10-04-2025 GC (Gonorrhea) Screening () GC (Gonorrhea) Screening () [facility] Start: 10-04-2025 Screening for Chlamy radha trachomatis Chlamydia Screening () [facility] Start: 04-22-2025 End: 04-22-2025 Patient encounter procedure 04/22/2025 2:30 PM EDT Routine Office Visit OB/Gynecology [address] [place] [address] Corrie Garcia APRN.CNM [address] [place] [address] OB OB/Gynecology Comment on above: OB Start: 04-10-2025 End: 04-10-2025 Patient encounter procedure 04/10/2025 8:00 AM EDT Routine Office Visit OB/Gynecology [address] [place] [address] Corrie Garcia APRN.CNM [address] [place] [address] OB OB/Gynecology Comment on above: OB Start: 03-29-2025 End: 03-29-2025 Patient encounter procedure 03/29/2025 11:15 AM EDT Routine Office Visit OB/Gynecology [address] [place] [address] Corrie Garcia APRN.CNM [address] [place] [address] OB OB/Gynecology Comment on above: OB Start: 03-26-2025 RSV Vaccine (1 - Ris k 1-dose series) RSV Vaccine (1 - Risk 1-dose series) [facility] Start: 03-18-2025 Influenza vaccination [facility] Start: 03-14-2025 End: 03-14-2025 Patient encounter procedure 03/14/2025 11:15 AM EDT Routine Office Visit OB/Gynecology [address] [place] [id number] Corrie Garcia APRN.CNM [address] [place] [address] OB OB/Gynecology Comment on above: OB Start: 02-26-2025 End: 05-28-2025 ANEMIA REFLEX PANEL ANEMIA REFLEX PANEL Lab Routine 25 weeks gestation of ([facility]) Encounter for supervision of normal first in second trimester ([facility]) Expected: 02/26/2025 (Approximate), Expires: 05/28/2025 [facility] Comment on above: Expected: 02/26/2025 (Approximate), Expires: 05/28/2025 Start: 02-26-2025 End: 02-05-2026 GESTATIONAL GLUCOSE SCREEN, 1-HOUR, 50 GRAM, NON-FASTING GESTATIONAL GLUCOSE SCREEN, 1-HOUR, 50 GRAM, NON-FASTING Lab Routine 25 weeks gestation of ([facility]) Encounter for supervision of normal first in second trimester ([facility]) Expected: 02/26/2025 (Approximate), Expires: 02/05/2026 [facility] Work Phone: Comment on above: Expected: 02/26/2025 (Approximate), Expires: 02/05/2026 Start: 02-26-2025 End: 02-05-2026 SYPHILIS TREPONEMAL W/REFLEX SYPHILIS TREPONEMAL W/REFLEX Lab Routine 25 weeks gestation of (HCC) Encounter for supervision of normal first in second trimester ([facility]) Expected: 02/26/2025 (Approximate), Expires: 02/05/2026 [facility] Comment on above: Expected: 02/26/2025 (Approximate), Expires: 02/05/2026 Start: 02-26-2025 End: 05-28-2025 TYPE + SCREEN TYPE + SCREEN Blood Bank Routine 25 weeks gestation of ([facility]) Encounter for supervision of normal first in second trimester ([facility]) Expected: 02/26/2025 (Approximate), Expires: 05/28/2025 [facility] Comment on above: Expected: 02/26/2025 (Approximate), Expires: 05/28/2025 Start: 02-26-2025 End: 02-26-2025 Patient encounter procedure 02/26/2025 8:10 AM EDT Routine Office Visit OB/Gynecology [address] [place] [address] Hanh Hines MD [address] [place] [address] Glucose/OB OB/Gynecology Comment on above: Glucose/OB Start: 02-26-2025 End: 02-26-2025 ambulatory 02/26/2025 8:00 AM EDT Results Only [place] [facility] [address] [place] [address] Glucose lab [facility] Comment on above: Glucose lab Start: 01-28-2025 End: 01-28-2025 Patient encounter procedure 01/28/2025 8:45 AM EDT Routine Office Visit OB/Gynecology [address] [place] [address] Ernestina Loza APRN.WELDING TECHNICIAN [address] [place] [address] OB OB/Gynecology Comment on above: OB Start: 01-01-2025 End: 01-01-2025 Patient encounter procedure [facility]aternal [facility] Comment on above: Anatomy Anatomy/OB Start: 12-12-2024 End: 12-12-2024 Patient encounter procedure 12/12/2024 10:10 AM EDT Routine Office Visit OB/Gynecology [address] [place] [address] Rafal Resendiz MD [address] [place] [address] OB Routine OB/Gynecology Comment on above: OB Routine Start: 11-08-2024 End: 11-08-2024 Patient encounter procedure Maternal Medicine Comment on above: Anatomy and АННА Start: 10-04-2024 End: 01-03-2025 ANEMIA REFLEX PANEL ANEMIA REFLEX PANEL Lab Routine with uncertain dates in first trimester Expected: 10/04/2024, Expires: 01/03/2025 [facility] Work Phone: Comment on above: Expected: 10/04/2024 , Expires: 01/03/2025 Start: 10-04-2024 End: 01-03-2025 Hemoglobin A1c in Blood HEMOGLOBIN A1C Lab Routine with uncertain dates in first trimester Expected: 10/04/2024, Expires: 01/03/2025 [facility] Comment on above: Expected: 10/04/2024 , Expires: 01/03/2025 Start: 10-04-2024 End: 01-03-2025 Hepatitis B virus surface Ag [Presence] in Serum HEPATITIS B SURFACE ANTIGEN Lab Routine with uncertain dates in first trimester Expected: 10/04/2024, Expires: 01/03/2025 [facility] Comment on above: Expected: 10/04/2024 , Expires: 01/03/2025 Start: 10-04-2024 End: 01-03-2025 Hepatitis C virus Ab [Presence] in Serum HEPATITIS C ANTIBODY IA WITH CONFIRMATION Lab Routine with uncertain dates in first trimester Expected: 10/04/2024, Expires: 01/03/2025 [facility] Comment on above: Expected: 10/04/2024 , Expires: 01/03/2025 Start: 10-04-2024 End: 01-03-2025 HIV 1+2 Ab [Presence] in Serum or Plasma by Immunoassay HIV 1/2 COMBO WITH REFLEX TO DIFFERENTIATION Lab Routine with uncertain dates in first trimester Expected: 10/04/2024, Expires: 01/03/2025 [facility] Comment on above: Expected: 10/04/2024 , Expires: 01/03/2025 Start: 10-04-2024 End: 10-04-2025 OBSTETRIC ULTRASOUND WHI OBSTETRIC ULTRASOUND WHI Anc Imaging Routine with uncertain dates in first trimester Expected: 10/04/2024, Expires: 10/04/2025 [facility] Comment on above: Expected: 10/04/2024 , Expires: 10/04/2025 Start: 10-04-2024 End: 01-03-2025 RUBELLA IGG ANTIBODY RUBELLA IGG ANTIBODY Lab Routine with uncertain dates in first trimester Expected: 10/04/2024, Expires: 01/03/2025 [facility] Comment on above: Expected: 10/04/2024 , Expires: 01/03/2025 Start: 10-04-2024 End: 01-03-2025 SYPHILIS TREPONEMAL W/REFLEX SYPHILIS TREPONEMAL W/REFLEX Lab Routine with uncertain dates in first trimester Expected: 10/04/2024, Expires: 01/03/2025 [facility] Comment on above: Expected: 10/04/2024 , Expires: 01/03/2025 Start: 10-04-2024 End: 01-03-2025 TYPE + SCREEN TYPE + SCREEN Blood Bank Routine with uncertain dates in first trimester Expected: 10/04/2024, Expires: 01/03/2025 [facility] Comment on above: Expected: 10/04/2024 , Expires: 01/03/2025 Start: 03-18-2024 Covid-19 Vaccine ( season) Covid-19 Vaccine ( season) [facility] Start: 03-18-2024 Influenza vaccination Influenza Vacc ine (#1) [facility] Start: 12-14-2023 Screening for malign ant neoplasm of cervix Cervical Cancer Screening [facility] Start: 2021 Hepatitis B Vaccine (1 of 3 - 19+ 3-dose series) Hepatitis B Vaccine (1 of 3 - 19+ 3-dose series) [facility] Start: 2021 Urine microalbumin profile DTaP,Tdap,Td Vaccine (1 - Tdap) [facility] Start: 2020 Annual PCP Team Supervisor [employer] Disease Visit Annual PCP Team Chronic Disease Visit [facility] Start: 2020 Anxiety Screening Anxiety Screening [facility] Start: 2020 Depression Screening Depression Scre ening [facility] Start: 2020 GC (Gonorrhea) Screening (18-24) GC (Gonorrhea) Screening (18-24) [facility] Start: 2020 Hepatitis C screening Hepatitis C Sc reening [facility] Start: 2020 HIV screening HIV Screening [facility] Start: 2020 Screening for Chlamy radha trachomatis Chlamydia Screening (18-24) [facility] Start: 2018 Meningococcal B Vacc ine (1 of 2 - Standard) Meningococcal B Vaccine (1 of 2 - Standard) [facility] Start: 2017 HPV Vaccine (1 - 3-d ose series) HPV Vaccine (1 - 3-dose series) [facility] Start: 2016 Peds To Adult Transition Annual Assessment Peds To Adult Transition Annual Assessment [facility] Start: 2014 Peds To Adult Transition Initial Discussion Peds To Adult Transition Initial Discussion [facility] Start: 2006 Asthma Control Test Asthma Control T est [facility] Start: 2004 Asthma Action Plan Asthma Action Yang n [facility] Bacteria identified in Urine by Culture BACTERIAL CULTURE, URINE Microbiology Routine with uncertain dates in first trimester 10/04/2024 9:34 AM EDT [facility] Chlamydia trachomatis+Neisseria gonorrhoeae DNA [Presence] in Unspecified specimen by LETTY with probe detection GONORRHEA/CHLAMYDIA NAAT Lab Routine with uncertain dates in first trimester 10/04/2024 9:34 AM EDT [facility] PAP TEST PAP TEST Lab Rou jo with uncertain dates in first trimester Screening for cervical cancer Screening for human papillomavirus 10/04/2024 9:34 AM EDT [facility] TRICHOMONAS VAGINALI S NAAT TRICHOMONAS VAGINALIS NAAT Lab Routine with uncertain dates in first trimester 10/04/2024 9:34 AM EDT [facility] URINE OB DIP B/O URINE OB DIP B/ O Lab Routine Encounter for supervision of normal first in second trimester (HCC) Ordered: 02/26/2025 [facility] Work Phone: Comment on above: Ordered: 02/26/2025 Immunizations Immunization Date Immunization Notes Care Provider Fa eloisety 02-26-2025 RHO(D) immune globulin- IV or IM Hanh Acevedo MD Work Phone: [facility] Work Phone: NEGATED: Highlighted row has not occurred!02-26-2025 RHO(D) immune globulin- IV or IM Hanh Acevedo MD Work Phone: [facility] Payers Date Payer Category Payer Private Health Insurance [employer] SUP [employer] PPO [id number] 2025 Unknown [id number] 2024 Self-pay 2024 Blue [place] Blue [facility] BLUE ACCE PPO [id number] 2024 Unknown [id number] Unknown [id number] Unknown [id number] Unknown [id number] Social History Date Type Detail Facility Start: 10-02-2024 Tobacco smoking stat us NHIS Never smoked tobacco [facility] Start: 10-02-2024 Tobacco use and exposure Smokeless t obacco non-user [facility] Start: 10-04-2024 End: 02-05-2025 Alcoholic beverage intake Ex-drinker (finding) [facility] Start: 10-04-2024 End: 11-14-2024 History of Social function [facility] Start: 10-04-2024 End: 11-14-2024 Tobacco use panel [facility] Start: 10-02-2024 Education 13 [facility] Start: 10-02-2024 Alcohol Comment occasionally [facility] Start: 08-28-2024 [facility] Start: 2002 Sex assigned at Not on file [facility] Start: 09-12-2024 National Score (1-10 0), lower number is lower risk 50 [facility] Goals Date Patient Goal Desired Activity /State Personal health goal Clinical Notes 10-02-2024 to 05-14-2025 Quick Notes - Corrie Garcia APRN.[facility] - 03/29/2025 11:08 AM EDTPrenatal Quick Notes - Corrie Garcia APRN.[facility] - 03/29/2025 11:08 AM EDTPatient InstructionsPatient Instructions Note Date & Type Note Facility 05-14-2025 Note HNO ID: [id number] Author: FRED LI, ? Service: ? Author Type: Patient Extrusion Engineer Type: Progress Notes Filed: 05/15/2025 09:30 Note Text: POPULATION HEALTH NAVIGATION OUTREACH Action/I 3 rd attempt Unable message to add program director/music director to OB provider field, verify/est pcp mailbox full My chart sent Reason for Outreach Medicaid OB/Peds Care Gaps due: N/A Patient Contacted: Unable or unnecessary to reach patient: Unable to reach patient Unable to leave message MyChart message sent Navigation Signature: Fred Li Population Health Navigator May 14, 2025 10:53 AM [facility] 05-14-2025 Note Patient Outreach (CHRYSTAL TNAV) ROSAS BRITTON ([id number]) 4 F Date Time Provider Department 05/14/25 FRED LI NETNAV During your visit today, we recorded the following information about you: Fred Li 05/15/2025 9:30 AM Addendum POPULATION HEALTH NAVIGATION OUTREACH Action/ 3 rd attempt Unable message to add program director/music director to OB provider field, verify/est pcp mailbox full My chart sent Reason for Outreach Medicaid OB/Peds Care Gaps due: N/A Patient Contacted: Unable or unnecessary to reach patient: Unable to reach patient Unable to leave message Mobile Roadie message sent Navigation Signature: Fred Li Population Health Navigator May 14, 2025 10:53 AM Allergies As of Date: 05/14/2025 (No Known Allergies) Date Reviewed: 05/09/2025 Reviewed by: oBuchra Parra MD - Fully Assessed Reason for Visit: Population Health Navigation Outreach [3910] Cmt: to PCP/OB Prescriptions as of 05/15/2025 - aspirin, enteric coated (ECOTRIN LOW STRENGTH) 81 mg EC tablet Take 1 tablet by mouth once daily. - vits62/FA/om3/dha/epa ( GUMMY ORAL) Take by mouth. Problem List As Of Date 05/14/2025 Noted Resolved Encounter for supervision of normal first pregn*10/04/2024 Uncomplicated asthma [J45.909] 10/04/2024 7 weeks gestation of (HCC) [Z3A.01] 10/04/2024 02/05/2025 Rubella non-immune status, antepartum (HCC) [Z3*11/15/2024 Encounter Status:Closed by FRED LI on 05/14/25 [facility] 05-10-2025 Note HNO ID: [id number] Author: PALMA MUÑOZ MA Service: ? Author Type: Novelty Dipper Type: Progress Notes Filed: 05/10/2025 11:50 Note Text: POPULATION HEALTH NAVIGATION OUTREACH Action/ 2nd attempt: Called and unable to leave message to call back . Reason for Outreach Medicaid OB/Peds Care Gaps due: N/A Patient Contacted: Unable or unnecessary to reach patient: Unable to reach patient Unable to leave message Navigation Signature: Palma Fleming MA May 10, 2025 11:49 AM [facility] 05-09-2025 Note HNO ID: [id number] Author: PALMA MUÑOZ MA Service: ? Author Type: Novelty Dipper Type: Progress Notes Filed: 05/09/2025 13:29 Note Text: POPULATION HEALTH NAVIGATION OUTREACH Action/ attempt: Called and unable to leave message to call back to discuss program director/music director. MC message sent. Reason for Outreach Medicaid OB/Peds Care Gaps due: N/A Patient Contacted: Unable or unnecessary to reach patient: Unable to reach patient Unable to leave message Mobile Roadie message sent Navigation Signature: Palma Fleming MA May 09, 2025 1:29 PM [facility] 05-09-2025 Note Patient Outreach (NE TNAV) ROSAS BRITTON ([id number]) 4 F Date Time Provider Department 05/09/25 PALMA MUÑOZ During your visit today, we recorded the following information about you: Palma Muñoz MA 05/09/2025 1:29 PM Signed POPULATION HEALTH NAVIGATION OUTREACH Action/ attempt: Called and unable to leave message to call back to discuss program director/music director. MC message sent. Reason for Outreach Medicaid OB/Peds Care Gaps due: N/A Patient Contacted: Unable or unnecessary to reach patient: Unable to reach patient Unable to leave message Smartzert message sent Navigation Signature: Palma Fleming MA May 09, 2025 1:29 PM Palma Muñoz MA 05/10/2025 11:50 AM Signed POPULATION HEALTH NAVIGATION OUTREACH Action/FYI 2nd attempt: Called and unable to leave message to call back . Reason for Outreach Medicaid OB/Peds Care Gaps due: N/A Patient Contacted: Unable or unnecessary to reach patient: Unable to reach patient Unable to leave message Navigation Signature: Palma Fleming MA May 10, 2025 11:49 AM Allergies As of Date: 05/09/2025 (No Known Allergies) Date Reviewed: 05/09/2025 Reviewed by: Bouchra Parra MD - Fully Assessed Reason for Visit: Population Health Navigation Outreach [3910] Cmt: to PCP/OB Prescriptions as of 05/10/2025 - aspirin, enteric coated (ECOTRIN LOW STRENGTH) 81 mg EC tablet Take 1 tablet by mouth once daily. - vits62/FA/om3/dha/epa ( GUMMY ORAL) Take by mouth. Problem List As Of Date 05/09/2025 Noted Resolved Encounter for supervision of normal first pregn*10/04/2024 Uncomplicated asthma [J45.909] 10/04/2024 7 weeks gestation of (HCC) [Z3A.01] 10/04/2024 02/05/2025 Rubella non-immune status, antepartum (HCC) [Z3*11/15/2024 Encounter Status:Closed by PALMA MUÑOZ on 05/09/25 [facility] 03-29-2025 Progress note Formatting of t his note might be different from the original. S: Rosas Britton is a 24 year old female who presents at 32 weeks gestation for a routine visit. Increased nasal congestion. Has been busy at the fair this week. Reviewed appropriate medications in . Denies headache, visual changes, chest pain, shortness of breath, vaginal bleeding, leakage of fluid, or dysuria. Feeling well, no complaints. O: See flow sheet Gen: No apparent distress Abd: Gravid, nontender ASSESSMENT/PLAN: 1. Encounter for supervision of normal first in second trimester 2. 32 weeks gestation of 3. Rh negative state in antepartum period - Continue vitamin and ASA - RTO 2 weeks or sooner if needed Corrie Garcia APRN.CNM [facility] 03-29-2025 Miscellaneous Notes Formattin g of this note might be different from the original. S: Rosas Britton is a 24 year old female who presents at 32 weeks gestation for a routine visit. Increased nasal congestion. Has been busy at the fair this week. Reviewed appropriate medications in . Denies headache, visual changes, chest pain, shortness of breath, vaginal bleeding, leakage of fluid, or dysuria. Feeling well, no complaints. O: See flow sheet Gen: No apparent distress Abd: Gravid, nontender ASSESSMENT/PLAN: 1. Encounter for supervision of normal first in second trimester 2. 32 weeks gestation of 3. Rh negative state in antepartum period - Continue vitamin and ASA - RTO 2 weeks or sooner if needed Corrie Garcia APRN.CNM documented in this encounter [facility] 03-29-2025 Instructions Graciela Blair MA - 03/29/2025 10:56 AM EDT SEQUENTIAL SCREENINGS The [facility] offers sequential screenings for women who are interested in screenings for chromosomal abnormalities and certain defects during a . The sequential screen combines ultrasound and blood tests to determine the risk of chromosomal abnormalities, including Down's Syndrome (Trisomy 21) and Trisomy 18, as well as open neural tube defects including spina bifida. Ultrasound examination is performed between 11 weeks and 13 weeks gestational age. Blood tests are drawn after the ultrasound and again later in the between 15 and 21 weeks gestational age. Please let your physician know if you are interested in this testing. It will require an appointment with our explosive ordnance technician. This is not an ultrasound performed by a physician in our office during a routine visit. SIGNS AND SYMPTOMS OF LABOR 1. Contractions every 10 minutes or more often 2. Clear, pink, or brownish fluid (water) leaking from vagina 3. Feeling that baby is pushing down, pressure 4. Low, dull backache 5. Cramps that feel like a period 6. Cramps with or without diarrhea If you notice any of the above symptoms, contact our office at [phone] and ask to speak with a nurse. After hours, you can call doctors registry at [phone] OR call [facility] at [phone] and ask to have the doctor health and wellness sales consultant paged. If you consider this an emergency, dial 9-1-1 or go to your nearest emergency department. NEED HELP? Are you dealing with a violent or abusive relationship? Are you a victim of rape or sexual assult? Call [facility] ([place]) 24 hour Crisis Hotline: 383.893.4297 or 739-710-7023. MANUAL Your Guide to a Healthy manual is now on-line. Visit [email or web address] to download your free copy documented in this encounter [facility] 03-14-2025 Progress note Formatting of t his note might be different from the original. S: Rosas Britton is a 24 year old female who presents at 30 weeks gestation for a routine visit. Positive movements. Recent feelings of fatigue/malaise- unsure if getting sick. [employer] shaky at work and drank soda and felt better. Afebrile. Denies headache, visual changes, chest pain, shortness of breath, vaginal bleeding, leakage of fluid, or dysuria. O: See flow sheet Gen: No apparent distress Abd: Gravid, nontender ASSESSMENT/PLAN: 1. Encounter for supervision of normal first in second trimester 2. 30 weeks gestation of 3. Rh negative state in antepartum period 4. Rubella non-immune status, antepartum 6. History of Asthma - No Hemabate - Reviewed plan- desires spontaneous onset of labor and epidural - Enrollment Management Director handout given - Interested in eating dates/ red raspberry leaf tea- hand out given - PTL precautions reviewed and when to call office - RTO 2 weeks Corrie Garcia APRN.CNM [facility] 08-28-2025 Miscellaneous Notes Formattin g of this note might be different from the original. S: Rosas Britton is a 24 year old female who presents at 30 weeks gestation for a routine visit. Positive movements. Recent feelings of fatigue/malaise- unsure if getting sick. [employer] shaky at work and drank soda and felt better. Afebrile. Denies headache, visual changes, chest pain, shortness of breath, vaginal bleeding, leakage of fluid, or dysuria. O: See flow sheet Gen: No apparent distress Abd: Gravid, nontender ASSESSMENT/PLAN: 1. Encounter for supervision of normal first in second trimester 2. 30 weeks gestation of 3. Rh negative state in antepartum period 4. Rubella non-immune status, antepartum 6. History of Asthma - No Hemabate - Reviewed plan- desires spontaneous onset of labor and epidural - Enrollment Management Director handout given - Interested in eating dates/ red raspberry leaf tea- hand out given - PTL precautions reviewed and when to call office - RTO 2 weeks Corrie Garcia APRN.CNM documented in this encounter [facility] 03-14-2025 Note HNO ID: [id number] Author: CORRIE GARCIA APRN.CNM Service: ? Author Type: Integrity Specialist Type: Progress Notes Filed: 03/14/2025 11:36 Note Text: Subjective Rosas Britton is a 24 year old female. HPI Review of Systems Objective BP 110/60 Wt 91.6 kg (202 lb) LMP 08/08/2024 (Approximate) BMI 33.61 kg/m? Physical Exam [facility] 03-14-2025 History of Presen t illness Narrative Subjective Rosas Britton is a 24 year old female. HPI Review of Systems Objective BP 110/60 Wt 91.6 kg (202 lb) LMP 08/08/2024 (Approximate) BMI 33.61 kg/m Physical Exam documented in this encounter [facility] 03-14-2025 Instructions Corrie Garcia APRN.CNM - 03/14/2025 11:00 AM EDT Images from the original note were not included. Preparing for labor: Eat dates to promote spontaneous labor! Has an oxytocin-like effect on the body, leading to increased sensitivity of the uterus. Stimulates uterine contractions. Reduces hemorrhage the way oxytocin does. Date fruit contains saturated and unsaturated fatty acids such as oleic, linoleic, and linolenic acids, which are involved in saving and supplying energy and construction of prostaglandins. In addition, serotonin, tannin, and calcium in date fruit contribute to the contraction of smooth muscles of the uterus. Date fruit also has a laxative effect, which stimulates uterine contractions. Six dates per day is the magic number--provided that you re eating smaller deglet noor dates. Deglet noor dates are about 1 inch long. Medjool dates can be up to 2 inches long. If you re eating medjool dates, you only need about 3 dates to reach the 75 grams recommended in the studies. Not sure which type of date you have in your refrigerator? It s probably a deglet noor. How to Eat Dates During Dates are a healthy and delicious snack, so how can you add them to your diet? Add dates during in this awesome oatmeal recipe. Add dates to replace sugar in your favorite recipe or to lyssa your homemade almond milk. Use dates and nuts to make an easy pie crust in the food service substitute. Add soaked dates to homemade nut butter for a sweet treat. Add dates to lyssa homemade salad dressing. Add dates during easily with these yummy (paleo friendly) bars made from dates. What Is Red Raspberry Wenden Tea? Red raspberry leaf tea comes from the leaves of the red raspberry plant. This herbal tea has been used for centuries to support respiratory, digestive and uterine health, particularly during and childbearing years. While usually known as a female herb, red raspberry leaf tea can also help support the prostate and various stomach ailments in children. How It Can Help and Red raspberry leaf tea can help to make labor faster and reduce complications and interventions during . One study found that women who consumed RRL tea regularly are less likely to go overdue or give prematurely. These women may also be less likely to receive an artificial rupture of their membranes or require a section, forceps, or vacuum than the women in the control group. Red raspberry leaf has many other benefits to , , and too. How Much Red Raspberry Wenden Tea to Drink? With your doctor or fashion coordinator s approval, start with 1 cup of red raspberry leaf tea per day starting in the second trimester. Watch for any uterine cramping or other reactions. If you don t experience any, you can talk to your healthcare provider about increasing to 2 cups per day. Again, watch for any uterine cramping. If you notice any, cut back on your dosage for two weeks and try again. Keep in mind, some moms have irritable uteruses and can only drink red raspberry leaf tea once they reach their due date because of uterine cramping. Is Red Raspberry Wenden Tea the Same as Raspberry Wenden Tea? How About Plain Old Raspberry Tea? Sometimes. You really need to look at the ingredients to be sure. Note that there is no difference between red raspberry leaf and raspberry leaf. Toothpick or UrgentRx Raspberry Wenden Tea are two good brands. The red raspberry leaf teas that we recommend are 100% red raspberry leaf. Other teas labeled as raspberry are often a blend of rosehips, hibiscus, raspberry leaves, and raspberry flavor. So they may not be as effective. The teas to avoid are raspberry-flavored herbal teas, which may have ingredients like hibiscus, irene hips, apples, elderberries, natural and artificial raspberry flavors. Teas like this don t contain raspberry leaf at all and thus won t offer any of the potential benefits of RRLT outlined in this article. The [employer] www.[employer] I named this 'circuit' after my friend Giana Lyman, who shared and discussed it with me when I was working with a client whose labor seemed to be stalled out and no longer progressing... This circuit is useful to help get the baby lined up, ideally, in the Left Occiput Anterior (SUMMER) Position, both before labor begins and when some corrections need to be done during labor. Prenatally, this position set can help to rotate a baby. As a natural method of induction, this can help get things going if baby just needed a gentle nudge of position to set things off. To the best of my knowledge, this group of positions will not hurt a baby that is already lined up correctly. - Janie Jones Before you Begin..... This circuit takes at least 90 minutes to complete so clear your schedule and make mental preparations so you can relax in your environment. The second step requires a lot of pillows so gather them up before beginning Before starting, you should empty your bladder! Have a nice drink nearby, and make sure it has a straw! If you are having contractions, this circuit should bedone through contractions, try not to change positions between steps Step One: Open-knee Chest Stay in this position for 30 minutes, start in cat/cow, then drop your chest as low as you can to the bed or the floor and your bottom as high as you can. Knees should be fairly wide apart, and the angle between the torso/thighs should be wider than 90 degrees. Wiggle around, prop with lots of pillows and use this time to get totally relaxed. This position allows the baby to scoot out of the pelvis a bit and gives them room to rotate, shift their head position, etc. If the person finds it helpful,careful positioning with a rebozo under the belly, with gentle tension from a support person behindcan help maintain this position for the full 30minutes. Step Two: Exaggerated Left Side Lying Roll to your left side, bringing your top leg as high as possible and keeping your bottom leg straight. Roll forward as much as possible,again using a lot of pillows. Sink into the bed and relax some more. If you fall asleep, that's totally okay and you can stay there! If not, stay here for at least another half an hour. Try and get your top right leg up towards your head and get as rolled over onto your belly as much as possible. If you repeat the circuit during labor, try alternating left and right sides. We know the photo the left is actually right side... just flip the image in your head. Step Three: Moving and Dima Lungmarquita, walk stairs facing sideways, 2 at a time, (have a sewage reticulation drafting officer downstairs of you!), take a walk outside with one foot on the curb and the other on the street, sit on a ball and hula- anything that's upright and putting your pelvis in open, asymmetrical positions. Spend at least 30 minutes doing this one as well to give your baby a chance to move down. If you are lunging or stair or curb walking, you should lunge/walk/go up stairs in the direction that feels better to you. The jesus with the lunge is that the toes of the higher leg and mom's belly button should be at right angles. Do not lunge over your knee, that closes the pelvis. Giana Moreno Nura: Circuit Creator - www.[employer]. [employer] Janie Jones CD, BDT (STACY), LCCE, FACCE: Supporting Content - www.[employer]Card Ernestina Blas: Photography - www.[facility].[employer] Sharon Aguilar CD/CDT (ELLA): Print and Typing Office Worker - www.[employer]Attach [employer] www.[employer] SEQUENTIAL SCREENINGS The [facility] offers sequential screenings for women who are interested in screenings for chromosomal abnormalities and certain defects during a . The sequential screen combines ultrasound and blood tests to determine the risk of chromosomal abnormalities, including Down's Syndrome (Trisomy 21) and Trisomy 18, as well as open neural tube defects including spina bifida. Ultrasound examination is performed between 11 weeks and 13 weeks gestational age. Blood tests are drawn after the ultrasound and again later in the between 15 and 21 weeks gestational age. Please let your physician know if you are interested in this testing. It will require an appointment with our explosive ordnance technician. This is not an ultrasound performed by a physician in our office during a routine visit. SIGNS AND SYMPTOMS OF LABOR 1. Contractions every 10 minutes or more often 2. Clear, pink, or brownish fluid (water) leaking from vagina 3. Feeling that baby is pushing down, pressure 4. Low, dull backache 5. Cramps that feel like a period 6. Cramps with or without diarrhea If you notice any of the above symptoms, contact our office at [phone] and ask to speak with a nurse. After hours, you can call doctors registry at [phone] OR call [facility] at [phone] and ask to have the doctor health and wellness sales consultant paged. If you consider this an emergency, dial or go to your nearest emergency department. NEED HELP? Are you dealing with a violent or abusive relationship? Are you a victim of rape or sexual assult? Call [facility] ([place]) 24 hour Crisis Hotline: 492.906.4883 or 661-765-4512. MANUAL Your Guide to a Healthy manual is now on-line. Visit [email or web address] [email or web address] to download your free copy documented in this encounter [facility] 03-06-2025 Telephone encount er Note Order signed and faxed. Caitlyn Kahn RN [facility] 03-06-2025 Miscellaneous Notes Formattin g of this note might be different from the original. Order signed and faxed. Caitlyn Kahn RN Breast pump order received from [employer]. To CP to sign. Molly Romero RN documented in this encounter [facility] 03-04-2025 Telephone encount er Note Breast pump order received from [employer]. To CP to sign. Molly Romero RN [facility] 02-26-2025 Note HNO ID: [id number] Author: CARL SPICER LPN Service: ? Author Type: LICENSED NURSE Type: Progress Notes Filed: 02/26/2025 12:10 Note Text: Rosas Britton 24 year old is here for her injection of Rhophylac. Ellyssa L Lengacher Antibody Screen (no units) Date Value 11/14/2024 Negative Rosas Mccormackgacher is RH Negative Rhophylac was given without incident. See immunizations for details of immunizations administered today. Provider Dr. Acevedo was present in office at time of injection Rosas Britton was given her Rhophylac pocket card. Carl Spicer LPN [facility] 02-26-2025 History of Presen t illness Narrative Rosas Britton 24 year old is here for her injection of Rhophylac. Ellyssa L Lengacher Antibody Screen (no units) Date Value 11/14/2024 Negative Avtarsa Marin Lengacher is RH Negative Rhophylac was given without incident. See immunizations for details of immunizations administered today. Provider Dr. Acevedo was present in office at time of injection Rosas Britton was given her Rhophylac pocket card. Carl Spicer LPN documented in this encounter [facility] 02-26-2025 Progress note Formatting of t his note might be different from the original. DM-Pt doing well. Denies vaginal Bleeding, Leaking fluid, or regular Contractions. Pt reports good movement. Co Physical Exam: Gen: female in no apparent distress Abd: soft, Gravid. Non tender to palpation. See flow sheet @ 28 weeks Assessment & Plan Encounter for supervision of normal first in second trimester (HCC) Orders: URINE OB DIP B/O Rh negative state in antepartum period (HCC) Rhogam today Orders: RhoD immune globulin 300 mcg injection (RHOPHYLAC) 28 weeks gestation of ([facility]) RTO 2 wks Kick counts Labs today Declines tdap Declines larc- form signed Orders: RhoD immune globulin 300 mcg injection (RHOPHYLAC) Hanh Culver MD [facility] 02-26-2025 Miscellaneous Notes Formattin g of this note might be different from the original. DM-Pt doing well. Denies vaginal Bleeding, Leaking fluid, or regular Contractions. Pt reports good movement. Co Physical Exam: Gen: female in no apparent distress Abd: soft, Gravid. Non tender to palpation. See flow sheet @ 28 weeks Assessment & Plan Encounter for supervision of normal first in second trimester ([facility]) Orders: URINE OB DIP B/O Rh negative state in antepartum period ([facility]) Rhogam today Orders: RhoD immune globulin 300 mcg injection (RHOPHYLAC) 28 weeks gestation of ([facility]) RTO 2 wks Kick counts Labs today Declines tdap Declines larc- form signed Orders: RhoD immune globulin 300 mcg injection (RHOPHYLAC) Hanh Culver MD documented in this encounter [facility] 02-26-2025 Instructions Melany Marcos MA - 02/26/2025 8:00 AM EDT SEQUENTIAL SCREENINGS The [facility] offers sequential screenings for women who are interested in screenings for chromosomal abnormalities and certain defects during a . The sequential screen combines ultrasound and blood tests to determine the risk of chromosomal abnormalities, including Down's Syndrome (Trisomy 21) and Trisomy 18, as well as open neural tube defects including spina bifida. Ultrasound examination is performed between 11 weeks and 13 weeks gestational age. Blood tests are drawn after the ultrasound and again later in the between 15 and 21 weeks gestational age. Please let your physician know if you are interested in this testing. It will require an appointment with our explosive ordnance technician. This is not an ultrasound performed by a physician in our office during a routine visit. SIGNS AND SYMPTOMS OF LABOR 1. Contractions every 10 minutes or more often 2. Clear, pink, or brownish fluid (water) leaking from vagina 3. Feeling that baby is pushing down, pressure 4. Low, dull backache 5. Cramps that feel like a period 6. Cramps with or without diarrhea If you notice any of the above symptoms, contact our office at [phone] and ask to speak with a nurse. After hours, you can call doctors registry at [phone] OR call [facility] at [phone] and ask to have the doctor health and wellness sales consultant paged. If you consider this an emergency, dial [phone] or go to your nearest emergency department. NEED HELP? Are you dealing with a violent or abusive relationship? Are you a victim of rape or sexual assult? Call [facility] ([place]) 24 hour Crisis Hotline: 193.580.7876 or 016-998-0690. MANUAL Your Guide to a Healthy manual is now on-line. Visit [email or web address] [email or web address] to download your free copy documented in this encounter [facility] 02-05-2025 Progress note Formatting of t his note might be different from the original. RR- doing well. No VB/LOF. Taking PNV. F/u in 3-4 weeks or prn for 28 week labs. Rafal Resendiz MD [facility] 02-05-2025 Miscellaneous Notes Formattin g of this note might be different from the original. RR- doing well. No VB/LOF. Taking PNV. F/u in 3-4 weeks or prn for 28 week labs. Rafal Resendiz MD documented in this encounter [facility] 02-05-2025 Instructions Palma Cook MA - 02/05/2025 12:35 PM EDT SEQUENTIAL SCREENINGS The [facility] offers sequential screenings for women who are interested in screenings for chromosomal abnormalities and certain defects during a . The sequential screen combines ultrasound and blood tests to determine the risk of chromosomal abnormalities, including Down's Syndrome (Trisomy 21) and Trisomy 18, as well as open neural tube defects including spina bifida. Ultrasound examination is performed between 11 weeks and 13 weeks gestational age. Blood tests are drawn after the ultrasound and again later in the between 15 and 21 weeks gestational age. Please let your physician know if you are interested in this testing. It will require an appointment with our explosive ordnance technician. This is not an ultrasound performed by a physician in our office during a routine visit. SIGNS AND SYMPTOMS OF LABOR 1. Contractions every 10 minutes or more often 2. Clear, pink, or brownish fluid (water) leaking from vagina 3. Feeling that baby is pushing down, pressure 4. Low, dull backache 5. Cramps that feel like a period 6. Cramps with or without diarrhea If you notice any of the above symptoms, contact our office at [phone] and ask to speak with a nurse. After hours, you can call doctors registry at [phone] OR call [facility] at [phone] and ask to have the doctor health and wellness sales consultant paged. If you consider this an emergency, dial [phone] or go to your nearest emergency department. NEED HELP? Are you dealing with a violent or abusive relationship? Are you a victim of rape or sexual assult? Call [facility] ([place]) 24 hour Crisis Hotline: 744.939.8774 or 674-123-1303. MANUAL Your Guide to a Healthy manual is now on-line. Visit [email or web address] [email or web address] to download your free copy documented in this encounter [facility] 01-01-2025 Progress note Formatting of t his note might be different from the original. RR- VB No. LOF No. CTXS No. Movement: present. Other c/o: No. Medication list reviewed. SENSITIVE EXAM: Sensitive exam not performed. Physical Exam See Flow Sheet Abd: soft, nontender, gravid A/P 20w0d Estimated Date of Delivery: 05/21/25 Assessment & Plan Encounter for supervision of normal first in second trimester (HCC) 20 weeks gestation of (HCC) fu in 4 weeks or prn US today f/u in 4 weeks or prn Rafal Resendiz M.D. [facility] 01-01-2025 Miscellaneous Notes Formattin g of this note might be different from the original. RR- VB No. LOF No. CTXS No. Movement: present. Other c/o: No. Medication list reviewed. SENSITIVE EXAM: Sensitive exam not performed. Physical Exam See Flow Sheet Abd: soft, nontender, gravid A/P 20w0d Estimated Date of Delivery: 05/21/25 Assessment & Plan Encounter for supervision of normal first in second trimester ([facility]) 20 weeks gestation of ([facility]) fu in 4 weeks or prn US today f/u in 4 weeks or prn Rafal Resendiz M.D. documented in this encounter [facility] 12-12-2024 Progress note Formatting of t his note might be different from the original. RR- VB No. LOF No. CTXS No. Movement: absent. Other c/o: No. occas MCDANIEL Medication list reviewed. SENSITIVE EXAM: Sensitive exam not performed. Physical Exam See Flow Sheet Gen: no accute distress, well appearing A/P 17w1d Estimated Date of Delivery: 05/21/25 Assessment & Plan Encounter for supervision of normal first in second trimester ([facility]) Rubella non-immune status, antepartum ([facility]) d/w recommendation for booster after deliveryt 17 weeks gestation of ([facility]) US in 4 weeks as scheduled d/w her symptomatic measures for mcdaniel cont. PNV nad ASA Rafal Resendiz M.D. [facility] 12-12-2024 Miscellaneous Notes Formattin g of this note might be different from the original. RR- VB No. LOF No. CTXS No. Movement: absent. Other c/o: No. occas MCDANIEL Medication list reviewed. SENSITIVE EXAM: Sensitive exam not performed. Physical Exam See Flow Sheet Gen: no accute distress, well appearing A/P 17w1d Estimated Date of Delivery: 05/21/25 Assessment & Plan Encounter for supervision of normal first in second trimester ([facility]) Rubella non-immune status, antepartum (HCC) d/w recommendation for booster after deliveryt 17 weeks gestation of ([facility]) US in 4 weeks as scheduled d/w her symptomatic measures for mcdaniel cont. PNV nad ASA Rafal Resendiz M.D. documented in this encounter [facility] 11-14-2024 Progress note Formatting of t his note might be different from the original. S: Rosas Britton is a 23 year old female who presents at 13 weeks gestation for a routine visit. Just completed NT US. JOSE A confirmed. Denies headache, visual changes, chest pain, shortness of breath, vaginal bleeding, leakage of fluid, or dysuria. Feeling well, no complaints. O: See flow sheet Gen: No apparent distress Abd: Gravid, non tender ASSESSMENT/PLAN: 1. 13 weeks gestation of 2. Encounter for supervision of normal first in second trimester - labs today - Declines aneuploidy screening - Continue lab daily - Start ASA at bedtime - RTO 4 weeks or sooner if needed Corrie Garcia APRN.CNM [facility] 11-14-2024 Miscellaneous Notes Formattin g of this note might be different from the original. S: Rosas Britton is a 23 year old female who presents at 13 weeks gestation for a routine visit. Just completed NT US. JOSE A confirmed. Denies headache, visual changes, chest pain, shortness of breath, vaginal bleeding, leakage of fluid, or dysuria. Feeling well, no complaints. O: See flow sheet Gen: No apparent distress Abd: Gravid, non tender ASSESSMENT/PLAN: 1. 13 weeks gestation of 2. Encounter for supervision of normal first in second trimester - labs today - Declines aneuploidy screening - Continue lab daily - Start ASA at bedtime - RTO 4 weeks or sooner if needed Corrie Garcia APRN.CNM documented in this encounter [facility] 11-14-2024 Instructions Gayla Bee LPN - 11/14/2024 12:59 PM EDT SEQUENTIAL SCREENINGS The [facility] offers sequential screenings for women who are interested in screenings for chromosomal abnormalities and certain defects during a . The sequential screen combines ultrasound and blood tests to determine the risk of chromosomal abnormalities, including Down's Syndrome (Trisomy 21) and Trisomy 18, as well as open neural tube defects including spina bifida. Ultrasound examination is performed between 11 weeks and 13 weeks gestational age. Blood tests are drawn after the ultrasound and again later in the between 15 and 21 weeks gestational age. Please let your physician know if you are interested in this testing. It will require an appointment with our explosive ordnance technician. This is not an ultrasound performed by a physician in our office during a routine visit. SIGNS AND SYMPTOMS OF LABOR 1. Contractions every 10 minutes or more often 2. Clear, pink, or brownish fluid (water) leaking from vagina 3. Feeling that baby is pushing down, pressure 4. Low, dull backache 5. Cramps that feel like a period 6. Cramps with or without diarrhea If you notice any of the above symptoms, contact our office at [phone] and ask to speak with a nurse. After hours, you can call doctors registry at [phone] OR call [facility] at [phone] and ask to have the doctor health and wellness sales consultant paged. If you consider this an emergency, dial 9-1- or go to your nearest emergency department. NEED HELP? Are you dealing with a violent or abusive relationship? Are you a victim of rape or sexual assult? Call [facility] [place] ([facility] 24 hour Crisis Hotline: 556.814.2089 or 393-849-0903. MANUAL Your Guide to a Healthy manual is now on-line. Visit [email or web address] [email or web address] to download your free copy documented in this encounter [facility] 10-04-2024 Jan Cerna MA - 10/04/2024 8:37 AM EDT Please select the following link to access the [facility] Your Guide to a Healthy . [email or web address] c documented in this encounter [facility] 10-02-2024 Note HNO ID: [id number] Author: CORRIE GARCIA APRN.CNM Service: ? Author Type: Integrity Specialist Type: Progress Notes Filed: 10/04/2024 09:50 Note Text: INITIAL OB ASSESSMENT HPI: Rosas is a 23 year old White here to establish Obstetrical Care. Patient's last menstrual period was 08/08/2024 (approximate). from OB Dating Form. was planned Complaints: (!) Rash or viral illness (Treated for bronchitis starting 08/24/2024) OB History Gravida1 Para0 Term0 Preterm0 AB0 Living0 SAB0 IAB0 Ectopic0 Multiple0 Live Births0 Previous history: Prior : never History of 4th degree laceration: No History of shoulder dystocia: No History of Hypertensive disorders including pre-eclampsia or gestational hypertension: No History of gestational diabetes: No Patient's Risk Screening for delivery: Have you had a prior mccain between 20w and 36w6d? No How many pregnancies have you had before? 0 Did you have a previous baby with a GBS Infection? No Please select all that apply for any prior : N/A MEDICAL/PSYCHOSOCIAL HISTORY: History of hemorrhage or bleeding concerns: No Thyroid Disease: No History of chronic hypertension: No History of pre-existing diabetes: No No results found for: ABORHD BMI 28.62 kg/(m2) Last Pap: History of abnormal pap: No Prior treatment for cervical dysplasia: none. Last HPV: History of STDs: None Partner History of STDs: None Did you have a partner with Herpes? No Tobacco use: No E-Cigarette/Vaping Use: No Caffeine use: No Drug use: No Alcohol use: No Multivitamin with Folic acid: Yes Would refuse blood transfusion if medically necessary: No Social Needs: How often does this describe you? I don't have enough money to pay my bills: Never Within the past 12 months, have you worried that your food would run out before you had money to buy more? Never In the past 12 months, has lack of reliable transportation kept you from going to medical appointments or work, or from getting things needed for daily living? Never In the past 12 months, have you had any concerns about having a place to live, or about the condition or quality of your housing? Never Would you like more information on any of the following (please check all that apply)? Centering (group care classes) Social History: Do you have any history of depression, anxiety, PTSD, or other mood problems? No Do you have a history of abuse or trauma that may impact your experience? No Are you currently employed? Yes Depression/Anxiety Screening: denies symptoms of depression. OB Depression and Anxiety Screening- This Encounter (since 10/03/2024) Over the past 2 weeks have you felt down, depressed, or hopeless? Negative Over the past two weeks, have you felt little interest or pleasure in doing things?? Negative Feeling nervous, anxious or on edge 0-Not at all Not being able to stop or control worrying 0-Not al all Anxiety Pre-Screening Total (If >/= 3 additional questions will be reviewed) 0 Genetic Screening: Partner present: No Patient verbalized knowledge of partner family health history: Yes Do you or your partner have any personal or family history of defects not previously discussed: No Do you have history of a complicated by anomaly, genetic condition, or demise: No Preeclampsia Risk Screening: Screening for prevention of preeclampsia: High risk factors: None Moderate risk ractors: Nulliparity OB Risk Screening: Completed, no positive findings documented. 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 No current facility-administered medications for this visit. Allergies As of Date: 10/04/2024 (No Known Allergies) Fully Assessed 10/04/2024 Does patient have penicillin allergy: No REVIEW OF SYSTEMS: GENERAL: Negative for: Fever or Chills and Positive for: Fatigue HEENT: Negative for: Impaired Vision, Ringing in Ears, Nosebleeds- Positive for headache/caffeine discontinued NECK: Negative for: Swelling, Pain, Stiffness RESPIRATORY: Negative for: Cough, Shortness of breath, Wheezing/ POSITIVE FOR ASTHMA GASTROINTESTINAL: Negative for: Heartburn, Constipation, Diarrhea, Blood in stool, Vomiting and Positive for: Nausea and Vomiting (2 x total) MUSCULOSKELETAL: Negative for: Muscle or joint pain, stiffness, Joint swelling NEUROLOGIC/PSYCHIATRIC: Negative for: Weakness, Paralysis, Numbness, Tingling, Tremor, Anxiety, Depression, Memory loss SKIN: Negative for: (more content not included)... [facility] 10-02-2024 History of Presen t illness Narrative INITIAL OB ASSESSMENT HPI: Rosas is a 23 year old White here to establish Obstetrical Care. Patient's last menstrual period was 08/08/2024 (approximate). from OB Dating Form. was planned Complaints: (!) Rash or viral illness (Treated for bronchitis starting 08/24/2024) OB History Gravida1 Para0 Term0 Preterm0 AB0 Living0 SAB0 IAB0 Ectopic0 Multiple0 Live Births0 Previous history: Prior : never History of 4th degree laceration: No History of shoulder dystocia: No History of Hypertensive disorders including pre-eclampsia or gestational hypertension: No History of gestational diabetes: No Patient's Risk Screening for delivery: Have you had a prior mccain between 20w and 36w6d? No How many pregnancies have you had before? 0 Did you have a previous baby with a GBS Infection? No Please select all that apply for any prior : N/A MEDICAL/PSYCHOSOCIAL HISTORY: History of hemorrhage or bleeding concerns: No Thyroid Disease: No History of chronic hypertension: No History of pre-existing diabetes: No No results found for: ABORHD BMI 28.62 kg/(m^2) Last Pap: History of abnormal pap: No Prior treatment for cervical dysplasia: none. Last HPV: History of STDs: None Partner History of STDs: None Did you have a partner with Herpes? No Tobacco use: No E-Cigarette/Vaping Use: No Caffeine use: No Drug use: No Alcohol use: No Multivitamin with Folic acid: Yes Would refuse blood transfusion if medically necessary: No Social Needs: How often does this describe you? I don't have enough money to pay my bills: Never Within the past 12 months, have you worried that your food would run out before you had money to buy more? Never In the past 12 months, has lack of reliable transportation kept you from going to medical appointments or work, or from getting things needed for daily living? Never In the past 12 months, have you had any concerns about having a place to live, or about the condition or quality of your housing? Never Would you like more information on any of the following (please check all that apply)? Centering (group care classes) Social History: Do you have any history of depression, anxiety, PTSD, or other mood problems? No Do you have a history of abuse or trauma that may impact your experience? No Are you currently employed? Yes Depression/Anxiety Screening: denies symptoms of depression. OB Depression and Anxiety Screening- This Encounter (since 10/03/2024) Over the past 2 weeks have you felt down, depressed, or hopeless? Negative Over the past two weeks, have you felt little interest or pleasure in doing things? Negative Feeling nervous, anxious or on edge 0-Not at all Not being able to stop or control worrying 0-Not al all Anxiety Pre-Screening Total (If >/= 3 additional questions will be reviewed) 0 Genetic Screening: Partner present: No Patient verbalized knowledge of partner family health history: Yes Do you or your partner have any personal or family history of defects not previously discussed: No Do you have history of a complicated by anomaly, genetic condition, or demise: No Preeclampsia Risk Screening: Screening for prevention of preeclampsia: High risk factors: None Moderate risk ractors: Nulliparity OB Risk Screening: Completed, no positive findings documented. 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 No current facility-administered medications for this visit. Allergies As of Date: 10/04/2024 (No Known Allergies) Fully Assessed 10/04/2024 Does patient have penicillin allergy: No REVIEW OF SYSTEMS: GENERAL: Negative for: Fever or Chills and Positive for: Fatigue HEENT: Negative for: Impaired Vision, Ringing in Ears, Nosebleeds- Positive for headache/caffeine discontinued NECK: Negative for: Swelling, Pain, Stiffness RESPIRATORY: Negative for: Cough, Shortness of breath, Wheezing/ POSITIVE FOR ASTHMA GASTROINTESTINAL: Negative for: Heartburn, Constipation, Diarrhea, Blood in stool, Vomiting and Positive for: Nausea and Vomiting (2 x total) MUSCULOSKELETAL: Negative for: Muscle or joint pain, stiffness, Joint swelling NEUROLOGIC/PSYCHIATRIC: Negative for: Weakness, Paralysis, Numbness, Tingling, Tremor, Anxiety, Depression, Memory loss SKIN: Negative for: Rash, Itching GENITOURINARY: Negative for: vaginal itching, vaginal discharge, hematuria or dysuria and Positive for: urinary frequency SENSITIVE EXAM: The sensitive examination was discussed with the Patient or Patient's Authorized Soaping Machine Back Tender. As applicable, any other physician, advance practice provider, medical student, or other health professional student that will be observing or involved in the sensitive examination for educational or training purposes was discussed with the Patient or Authorized Soaping Machine Back Tender. The Patient or Authorized Soaping Machine Back Tender has agreed to proceed with the sensitive examination. (Sensitive examination includes inspection and/or palpation of the breasts, pelvis, prostate and anorectal regions). PHYSICAL EXAM: BP 110/64 Ht 5' 5 (1.65m) Wt 172 lb (78.0kg) LMP 08/08/2024 BMI 28.62 kg/(m^2). GENERAL: pleasant in no apparent distress DERMATOLOGY: Normal and without lesions NECK: Supple and full range of motion CHEST: Normal inspiratory effort BREAST: soft, non-tender, symmetric, no dominant mass, normal nipple-areolar complex, no lymphadenopathy, no nipple discharge, and fibrocystic changes ABDOMEN: soft, non-tender, and no masses NEURO: alert and oriented x3,exam grossly non-focal PELVIS: External genitalia normal without lesions. Perineal body intact. No vaginal or cervical lesions. Scant bleeding with exam. Cervix closed. . No adnexal masses or tenderness. Clinical Pelvimetry: Pelvimetry clinically assessed as adequate Limited OB ultrasound exam: single intrauterine , positive cardiac activity, and crown-rump length 7w 2 days SBIRT Yelenalinda Marin Reba was given the 4P's screening tool. Rosas answered No to all the questions, the result is determined to be negative. PLAN: 1) Patient oriented to practice. Patient given new OB orientation folder. Discussed nutrition, folic acid supplementation, dietary guidelines, exercise, smoking, alcohol, caffeine, and drug use. Discussed gestational weight gain guidelines. Discussed routine OB labs including STD/HIV. Discussed how to access Your guide to a health and the Staff Cytotechnologist. Reviewed midwifery and prosecuting attorney services that are available. 2) Screening: Hemoglobin A1C: ordered Baby Aspirin: The patient has been counseled about the potential benefits of low dose aspirin in and our recommendation that this be offered to all patients, regardless of whether they meet the high risk criteria specified above. She Accepts Aneuploidy Screening: Discussed aneuploidy screening, nuchal translucency/first trimester early anatomy ultrasound and NIPT. The risks/benefits and limitations of NIPT/aneuploidy screening were reviewed including the potential for false negative and false positive results. The availability of genetic counseling was reviewed. Information on aneuploidy screening was provided. The patient chooses to proceed with First trimester early anatomy ultrasound (12-13w6d) and NIPT (10 weeks) Myriad Carrier Screening: Discussed myriad carrier screening. We discussed the availability of professional-society guided carrier screening and reviewed the conditions screened and limitations of screening. The availability of genetic counseling was reviewed. Information on carrier screening was provided. The patient Declines 3) Patient offered option of Virtual Visits. Patient prefers in person visits. Follow up in 4 weeks or sooner william. Corrie Garcia APRN.CNM documented in this encounter [facility] Evaluation note Diagnosis with uncertain dates in first trimester- Primary Screening for cervical cancer Screening for malignant neoplasm of the cervix Screening for human papillomavirus Special screening examination for human papillomavirus (HPV) Encounter for supervision of normal first in first trimester Supervision of normal first Uncomplicated asthma, unspecified asthma severity, unspecified whether persistent 7 weeks gestation of state, incidental [facility] Diagnosis 13 weeks gestation of (HCC)- Primary state, incidental Encounter for supervision of normal first in second trimester (HCC) Supervision of normal first Encounter for supervision of normal first in first trimester (HCC) Supervision of normal first [facility] Diagnosis Encounter for screening for malformation using ultrasound (HCC)- Primary Encounter for (NT) nuchal translucency scan ([facility]) Other specified screening 13 weeks gestation of ([facility]) state, incidental documented in this encounter [facility] note* Diagnosis Rubella non-immune status, antepartum (HCC)- Primary Other specified complication, antepartum documented in this encounter [facility] note* Diagnosis Encounter for supervision of normal first in second trimester ([facility])- Primary Supervision of normal first Rubella non-immune status, antepartum (HCC) Other specified complication, antepartum 17 weeks gestation of ([facility]) state, incidental * Assessment & Plan Note - Rafal Resendiz MD - 12/12/2024 10:45 AM EDT Associated Problem(s): Rubella non-immune status, antepartum ([facility]) d/w recommendation for booster after deliveryt documented in this encounter [facility] note* Diagnosis Encounter for supervision of normal first in second trimester ([facility])- Primary Supervision of normal first Rubella non-immune status, antepartum ([facility]) Other specified complication, antepartum 17 weeks gestation of ([facility]) state, incidental Encounter for anatomic survey ([facility]) [Z36.89]- Primary Encounter for anatomic survey with uncertain dates in first trimester ([facility]) documented in this encounter [facility] note* Diagnosis Encounter for supervision of normal first in second trimester ([facility])- Primary Supervision of normal first Rubella non-immune status, antepartum ([facility]) Other specified complication, antepartum 17 weeks gestation of ([facility]) state, incidental Encounter for supervision of normal first in second trimester ([facility])- Primary Supervision of normal first 20 weeks gestation of ([facility]) state, incidental documented in this encounter [facility] note* Diagnosis Encounter for supervision of normal first in second trimester ([facility])- Primary Supervision of normal first Rubella non-immune status, antepartum ([facility]) Other specified complication, antepartum 17 weeks gestation of ([facility]) state, incidental Encounter for supervision of normal first in second trimester ([facility])- Primary Supervision of normal first 25 weeks gestation of ([facility]) state, incidental Encounter for supervision of normal first in first trimester ([facility]) Supervision of normal first [facility] Diagnosis Encounter for supervision of normal first in second trimester ([facility])- Primary Supervision of normal first Rubella non-immune status, antepartum ([facility]) Other specified complication, antepartum 17 weeks gestation of ([facility]) state, incidental Encounter for supervision of normal first in second trimester ([facility])- Primary Supervision of normal first Rh negative state in antepartum period ([facility]) Rhesus isoimmunization affecting management of mother, antepartum condition 28 weeks gestation of ([facility]) state, incidental Encounter for supervision of normal first in first trimester ([facility]) Supervision of normal first [facility] Diagnosis Encounter for supervision of normal first in second trimester ([facility])- Primary Supervision of normal first Rubella non-immune status, antepartum ([facility]) Other specified complication, antepartum 17 weeks gestation of ([facility]) state, incidental Encounter for supervision of normal first in second trimester ([facility])- Primary Supervision of normal first 30 weeks gestation of ([facility]) state, incidental Rh negative state in antepartum period ([facility]) Rhesus isoimmunization affecting management of mother, antepartum condition Rubella non-immune status, antepartum ([facility]) Other specified complication, antepartum [facility] Diagnosis Encounter for supervision of normal first in second trimester ([facility])- Primary Supervision of normal first Rubella non-immune status, antepartum ([facility]) Other specified complication, antepartum 17 weeks gestation of ([facility]) state, incidental Encounter for supervision of normal first in second trimester ([facility])- Primary Supervision of normal first 32 weeks gestation of ([facility]) state, incidental Rh negative state in antepartum period ([facility]) Rhesus isoimmunization affecting management of mother, antepartum condition documented in this encounter [facility] Summary Purpose Family History No Family History Records FoundNo Family History Records Found Advance Directives No Advanced Directives Records FoundNo Advanced Directives Records Found Additional Source Comments Source Comments (unrecognize d section and content) In the event this informatio n is protected by the Federal Confidentiality of Alcohol and Drug Abuse Patient Records regulations: The Federal rules restrict any use of the information to criminally investigate or prosecute any alcohol or drug abuse patient.[facility] the event this information is protected by the Federal Confidentiality of Alcohol and Drug Abuse Patient Records regulations: The Federal rules restrict any use of the information to criminally investigate or prosecute any alcohol or drug abuse patient.[facility] the event this information is protected by the Federal Confidentiality of Alcohol and Drug Abuse Patient Records regulations: The Federal rules restrict any use of the information to criminally investigate or prosecute any alcohol or drug abuse patient.[facility] the event this information is protected by the Federal Confidentiality of Alcohol and Drug Abuse Patient Records regulations: The Federal rules restrict any use of the information to criminally investigate or prosecute any alcohol or drug abuse patient.[facility] the event this information is protected by the Federal Confidentiality of Alcohol and Drug Abuse Patient Records regulations: The Federal rules restrict any use of the information to criminally investigate or prosecute any alcohol or drug abuse patient.[facility] the event this information is protected by the Federal Confidentiality of Alcohol and Drug Abuse Patient Records regulations: The Federal rules restrict any use of the information to criminally investigate or prosecute any alcohol or drug abuse patient.[facility] the event this information is protected by the Federal Confidentiality of Alcohol and Drug Abuse Patient Records regulations: The Federal rules restrict any use of the information to criminally investigate or prosecute any alcohol or drug abuse patient.[facility] the event this information is protected by the Federal Confidentiality of Alcohol and Drug Abuse Patient Records regulations: The Federal rules restrict any use of the information to criminally investigate or prosecute any alcohol or drug abuse patient.[facility] the event this information is protected by the Federal Confidentiality of Alcohol and Drug Abuse Patient Records regulations: The Federal rules restrict any use of the information to criminally investigate or prosecute any alcohol or drug abuse patient.[facility] the event this information is protected by the Federal Confidentiality of Alcohol and Drug Abuse Patient Records regulations: The Federal rules restrict any use of the information to criminally investigate or prosecute any alcohol or drug abuse patient.[facility] the event this information is protected by the Federal Confidentiality of Alcohol and Drug Abuse Patient Records regulations: The Federal rules restrict any use of the information to criminally investigate or prosecute any alcohol or drug abuse patient.[facility] the event this information is protected by the Federal Confidentiality of Alcohol and Drug Abuse Patient Records regulations: The Federal rules restrict any use of the information to criminally investigate or prosecute any alcohol or drug abuse patient.[facility] the event this information is protected by the Federal Confidentiality of Alcohol and Drug Abuse Patient Records regulations: The Federal rules restrict any use of the information to criminally investigate or prosecute any alcohol or drug abuse patient.[facility] Reason for Visit (unrecogniz ed section and content) Reason Comments Initial OB Visit Reason Onset Date Comments Care 11/14/2024 Reason Comments US Specialty Diagnoses / Procedures Referred By Hailee fagan Referred To Contact [facility] Diagnoses with uncertain dates in first trimester (HCC) Procedures OBSTETRIC ULTRASOUND WHI US PREG UTERUS AFTER 1ST TRIMEST GESTATION Corrie Garcia APRN.[employer] [facility] [address] [place] [address] Phone: tel: fax: [facility] [address] [place] [address] Referral ID Status Reason Start Date Expiration Date V isits Requested Visits Authorized [id number] Closed Auto-Generate d Referral 10/04/2024 10/04/2025 1 1 Reason Comments Care Referral ID Status Reason Start Date Expiration Date V isits Requested Visits Authorized [id number] Closed Auto-Generate d Referral 10/04/2024 10/04/2025 1 1 Reason Onset Date Comments Care 02/05/2025 Reason Onset Date Comments Care 02/26/2025 Reason Comments Breast Pump Reason Onset Date Comments Care 03/14/2025 Reason Onset Date Comments Care 03/29/2025 INFORMATION SOURCE (unrecogn ized section and content) DATE CREATED AUTHOR 05/15/2025 [facility] DATE CREATED AUTHOR AUTHOR'S LARRY ATION 05/20/2025 [facility] FOR RECORDS PERTAINING TO PATIENTS WHO ARE OR HAVE BEEN ENROLLED IN A CHEMICAL DEPENDENCY/SUBSTANCEABUSE PROGRAM, SOME INFORMATION MAY BE OMITTED. This clinical summary was aggregated from multiple sources. Caution should be exercised in using it in the provision of clinical care. This summary normalizes information from multiple sources, and as a consequence, information in this document may materially change the coding, format and clinical context of patient data. In addition, data may be omitted in some cases. CLINICAL DECISIONS SHOULD BE BASED ON THE PRIMARY CLINICAL RECORDS. [facility] provides no warranty or guarantee of the accuracy or completeness of information in this document.
[2025-05-26 16:34] VITALS: BMI 37.3
[2025-05-26 16:48] VITALS: RESP 16; TEMP 36.5
[2025-05-26 16:49] VITALS: BP 117/67; PULSE 105; PULSE 90; TEMP 36.5; O2SAT 97
--- NOTE | 2025-05-28 18:02 | OB.TRI.HP_ITS ---
HPI - General General Date of Admission: 05/26/25 Date of Service: 05/26/25 Chief Complaint: contractions HPI Narrative MARCELLE BRITTON, is a 24 F who presents w/ ctxs increasing in frequency today. PFSH PFSH Home Medications ?Medication ?Instructions ?Recorded ?Last Taken ?Type aspirin 81 mg chewable tablet 1 tab PO DAILY 05/26/25 05/25/25 History (Aspirin Childrens) vitamins no.102-iron 90 1 cap PO DAILY Pregna ncy 05/26/25 05/25/25 History mg-folate 1 mg-dha 200 mg capsule Allergy/AdvReac Type Severity Reaction Status Date / Time No Known Allergies Allergy Verified 05/27/25 04:20 Social History (Reviewed 08/27/24 @ 11:40 by Kaity Plasencia DIRECTOR SPECIAL EDUCATION, DIRECTOR SPECIAL EDUCATION-C) Smoking Status: Never smoker History Elective abortions Hx Para 0 Spontaneous abortions Hx # Term Pregnancies Ectopic pregnancies Hx # Pregnancies Multiple births # of living children NST FHR Rate Baby A Baseline: normal Variability:: Moderate Accelerations:: 15 x 15 Decelerations:: None NST Reactive:: Yes Uterine Activity:: q 3-6 min Assessment & Plan (1) False labor: PLAN: Plan return prn or f/u as scheduled
== END 2025-05-26 18:50 | disposition home or self-care (01) ==
LOC: WPOUT 16:28 → WP 16:29
PROVIDERS: Visit Provider Obstetrics & Gynecology
DX: O47.1 False labor at or after 37 completed weeks of gestation (principal); Z3A.40 40 weeks gestation of pregnancy
CPT/HCPCS: 59025; 59050; 99221; G0378

== ENCOUNTER 2025-05-27 04:35 | Inpatient (IN) | payer OTHER, SELFPAY ==
[2025-05-27] VITALS (48 sets, daily range): BP systolic 99–153; BP diastolic 55–83; PULSE 79–110; RESP 14–18; TEMP 35.8–37.2; O2SAT 96–100; BMI 37.3
--- OUTSIDE RECORDS SUMMARY | 2025-05-27 04:07 | XMS RPT_ITS | CCD ---
Author Organization [facility] Care Team Providers Care Web Press Operator Assistant Name Role Phone Unavailable Primary Care Provider Unavailabl e VIOLETTS, CORRIE Attending Unavailable PLOTTS, CORRIE Attending Unavailable BOUCHRA PARRA Attending Unavailable PLOTTS, CORRIE Attending Unavailable PLOTTS, CORRIE Attending Unavailable PLOTTS, CORRIE Referring Unavailable PLOTTS, CORRIE Referring Unavailable JUAN DANIEL, RAFAL Funes Attending Unavailable PLOTTS, CORRIE Referring Unavailable JUAN DANIEL, RAFAL Funes Attending Unavailable JUAN DANIEL, RAFAL L Attending Unavailable PLOTTS, CORRIE Attending Unavailable PLOTTS, CORRIE Referring Unavailable PLOTTS, CORRIE Attending Unavailable PLOTTS, CORRIE Referring Unavailable HANH HINES Attending Unavail able PLOTTS, CORRIE Attending Unavailable PLOTTS, CORRIE Attending Unavailable PLOTTS, CORRIE Attending Unavailable Ramiro Bravo Attending Unavailable Care Physician, No Primary Primary Care Unava ilable Juan Daniel, Rafal Attending Unavailable Plotts, Corrie Referring Unavailable Plotts, Corrie Attending Unavailable Plotts, Corrie Admitting Unavailable Care Physician, No Primary Primary Care Unava ilable Medications Current Medications Medication Drug Class(es) Dates [...] unspecified, first trimester] Onset: 10-04-2024 10-04-2024 Episodic Residual codes; unclassified (2 sources) Gestation period, [...] [place] Onset: 10-04-2024 10-04-2024 Unclassified (1 source) Rubella non-immune status, antepartum (HCC); Translations: [Rubella non-immune status, antepartum ([facility])] Onset: 11-15-2024 Past or Other Problems Problem Classification Problem Date Documented Date Episodic/Chronic Immunizations and screening for infectious disease [...] status, antepartum (HCC)] Onset: 11-15-2024 Episodic Other screening for suspected conditions (not [...] of ; Translations: [17 weeks gestation of ([facility])] Onset: 12-12-2024 Episodic Residual codes; unclassified (1 source) 13 weeks gestation of ; Translations: [13 weeks gestation of ([facility])] Onset: 11-14-2024 Episodic Results Test Name Value Interpretation Reference Range Facil [facility] ROUTINE, GROUP B ST REPTOCOCCUS BY PCRon 04-22-2025 ROUTINE, GROUP B STREPTOCOCCUS BY PCR Not detected Normal [facility] Comment on above: Performed By: #### T SPN #### [facility] [id number] [address] [place] [address] [place] Matthew 03-04-2025 AGUSTIN Telephone (OBGYWM) ANALISAROSAS BARON ([id number]) 4 F Date Time Provider Department 03/04/25 CORRIE GARCIA During your visit today, we recorded the following information about you: Mloly Romero RN 03/04/2025 9:11 AM Signed Breast pump order received from [facility]. To CP to sign. MARIA LUZ Agudelo Lindsey, RN [...] Status:Closed by CAITLYN KAHN on 03/06/25 Normal [facility] CBC W Auto Differential pane l (Bld)on 02-26-2025 Basophils (Bld) [#/Vol] 0.03 10*3/uL Normal <0.11 [facility] Comment on above: Order Comment: Speci men Type: BLOOD SPECIMEN Ordering Facility: [facility] Address: [address] [place], [place] [id number] Performed By: #### T SPN #### [facility]LOOD BANK CLIA [id number] [address] [place] [address] [place] Basophils/100 WBC (Bld) 0.3 % Normal [facility] Comment on above: Order Comment: Speci men Type: BLOOD SPECIMEN Ordering Facility: [facility] Address: [address] [place] [address] Performed By: #### T SPN #### [facility]LOOD B[facility] CLIA [id number] [address] [place] [address] [place] Differential cell count method Nom (Bld) Auto Normal [facility] Comment on above: Order Comment: Speci men Type: BLOOD SPECIMEN Ordering Facility: [facility] Address: [address] [place] [address] Performed By: #### T SPN #### [facility]LOOD [facility] CLIA [id number] [address] [place] [address] [place] Eosinophils (Bld) [#/Vol] 0.09 10*3/uL Normal <0.46 [facility] Comment on above: Order Comment: Speci men Type: BLOOD SPECIMEN Ordering Facility: [facility] Address: [address] [place] [address] Performed By: #### T SPN #### [facility]LOOD [facility] CLIA [id number] [address] [place] [address] [place] Eosinophils/100 WBC (Bld) 1.0 % Normal [facility] Comment on above: Order Comment: Speci men Type: BLOOD SPECIMEN Ordering Facility: [facility] Address: [address] [place] [address] Performed By: #### T SPN #### [facility]LO[facility] CLIA [id number] [address] [place] [address] [place] Erythrocyte distribution width (RBC) [Ratio] 12.1 % Normal 11.5-15.0 [facility] Comment on above: Order Comment: Speci men Type: BLOOD SPECIMEN Ordering Facility: [facility] Address: [address], [place] [address] Performed By: #### T SPN #### [facility]LOOD B[facility] CLIA [id number] [address] [place] [address] [place] Hematocrit (Bld) [Volume fraction] 31.6 % Low 36.0-46.0 [facility] Comment on above: Order Comment: Speci men Type: BLOOD SPECIMEN Ordering Facility: [facility] Address: [address] [place] [address] Performed By: #### T SPN #### [facility]LOOD [facility] CLIA [id number] [address] [place] [address] [place] Hemoglobin (Bld) [Mass/Vol] 11.2 g/dL Low 11.5-15.5 [facility] Comment on above: Order Comment: Speci men Type: BLOOD SPECIMEN Ordering Facility: [facility] Address: [address] [place] [address] Performed By: #### T SPN #### [facility]LOOD B[facility] CLIA [id number] [address] [place] [address] [place] Immature granulocytes (Bld) [#/Vol] 0.04 10*3/uL Normal <0.10 [facility] Comment on above: Order Comment: Speci men Type: BLOOD SPECIMEN Ordering Facility: [facility] Address: [address] [place] [address] Performed By: #### T SPN #### [facility]LOOD B[facility] CLIA [id number] [address] [place] [address] [place] Immature granulocytes/100 WBC (Bld) 0.5 % Normal [facility] Comment on above: Order Comment: Speci men Type: BLOOD SPECIMEN Ordering Facility: [facility] Address: [address] [place] [address] Performed By: #### T SPN #### [facility]LOOD [facility] CLIA [id number] [address] [place] [address] [place] Lymphocytes (Bld) [#/Vol] 1.77 10*3/uL Normal 1.00-4.00 [facility] Comment on above: Order Comment: Speci men Type: BLOOD SPECIMEN Ordering Facility: [facility] Address: [address] [place] [address] Performed By: #### T SPN #### [facility]LOOD B[facility] CLIA [id number] [address] [place] [address] [place] Lymphocytes/100 WBC (Bld) 20.5 % Normal [facility] Comment on above: Order Comment: Speci men Type: BLOOD SPECIMEN Ordering Facility: [facility] Address: [address] [place] [address] Performed By: #### T SPN #### [facility]LOOD B[facility] CLIA [id number] [address] [place] [address] [place] MCH (RBC) [Entitic mass] 30.2 pg Normal 26.0-34.0 [facility] Comment on above: Order Comment: Speci men Type: BLOOD SPECIMEN Ordering Facility: [facility] Address: [address] [place] [address] Performed By: #### T SPN #### [facility]LOOD B[facility] CLIA [id number] [address] [place] [address] [place] MCHC (RBC) [Mass/Vol] 35.4 g/dL Normal 30.5-36.0 [facility] Comment on above: Order Comment: Speci men Type: BLOOD SPECIMEN Ordering Facility: [facility] Address: [address] [place] [address] Performed By: #### T SPN #### [facility]LOOD [facility] CLIA [id number] [address] [place] [address] [place] MCV (RBC) [Entitic vol] 85.2 fL Normal 80.0-100.0 [facility] Comment on above: Order Comment: Speci men Type: BLOOD SPECIMEN Ordering Facility: [facility] Address: [address] [place] [address] Performed By: #### T SPN #### [facility]LOOD [facility] CLIA [id number] [address] [place] [address] [place] Monocytes (Bld) [#/Vol] 0.47 10*3/uL Normal <0.87 [facility] Comment on above: Order Comment: Speci men Type: BLOOD SPECIMEN Ordering Facility: [facility] Address: [address] [place] [address] Performed By: #### T SPN #### [facility]LOOD B[facility] CLIA [id number] [address] [place] [address] [place] Monocytes/100 WBC (Bld) 5.4 % Normal [facility] Comment on above: Order Comment: Speci men Type: BLOOD SPECIMEN Ordering Facility: [facility] Address: [address] [place] [address] Performed By: #### T SPN #### [facility]LOOD [facility] CLIA [id number] [address] [place] [address] [place] Neutrophils (Bld) [#/Vol] 6.24 10*3/uL Normal 1.45-7.50 [facility] Comment on above: Order Comment: Speci men Type: BLOOD SPECIMEN Ordering Facility: [facility] Address: [address] [place] [address] Performed By: #### T SPN #### [facility]LOOD B[facility] CLIA [id number] [address] [place] [address] [place] Neutrophils/100 WBC (Bld) 72.3 % Normal [facility] Comment on above: Order Comment: Speci men Type: BLOOD SPECIMEN Ordering Facility: [facility] Address: [address] [place] [address] Performed By: #### T SPN #### [facility]LOOD B[facility] CLIA [id number] [address] [place] [address] [place] Nucleated RBC (Bld) [#/Vol] 10*3/uL Normal <0.01 [facility] Comment on above: Order Comment: Speci men Type: BLOOD SPECIMEN Ordering Facility: [facility] Address: [address] [place] [address] Performed By: #### T SPN #### [facility]LOOD B[facility] CLIA [id number] [address] [place] [address] [place] Nucleated RBC/100 WBC (Bld) [Ratio] 0.0 /100 WBC Normal [facility] Comment on above: Order Comment: Speci men Type: BLOOD SPECIMEN Ordering Facility: [facility] Address: [address] [place] [address] Performed By: #### T SPN #### [facility]LOOD B[facility] CLIA [id number] [address] [place] [address] [place] Platelet mean volume (Bld) [Entitic vol] 8.6 fL Low 9.0-12.7 [facility] Comment on above: Order Comment: Speci men Type: BLOOD SPECIMEN Ordering Facility: [facility] Address: [address] [place] [address] Performed By: #### T SPN #### [facility]LOOD B[facility] CLIA [id number] [address] [place] [address] [place] Platelets (Bld) [#/Vol] 170 10*3/uL Normal 150-400 [facility] Comment on above: Order Comment: Speci men Type: BLOOD SPECIMEN Ordering Facility: [facility] Address: [address] [place] [address] Performed By: #### T SPN #### [facility]LOOD B[facility] CLIA [id number] [address] [place] [address] [place] RBC (Bld) [#/Vol] 3.71 10*6/uL Low 3.90-5.20 [place] Comment on above: Order Comment: Speci men Type: BLOOD SPECIMEN Ordering Facility: [facility] Address: [address] [place] [address] Performed By: #### T SPN #### [facility]LOOD B[facility] CLIA [id number] [address] [place] [address] [place] WBC (Bld) [#/Vol] 8.64 10*3/uL Normal 3.70-11.00 [place] Comment on above: Order Comment: Speci men Type: BLOOD SPECIMEN Ordering Facility: [facility] Address: [address] [place] [address] Performed By: #### T SPN #### [facility]LOOD B[facility] CLIA [id number] [address] [place] [address] [place] GESTATIONAL GLUCOSE SCREEN, 1-HOUR, 50 GRAM, NON-FASTINGon 02-26-2025 Glucose [Mass/Vol] 108 mg/dL Normal 74-134 [facility] Comment on above: Order Comment: Speci men Type: BLOOD SPECIMEN Ordering Facility: [facility] Address: [address] [place] [address] Result Comment: [facility] Congress of Obstetricians and Gynecologists (Jose/Linda) guidelines state a gestational diabetes mellitus positive screen is made, in women not previously diagnosed with overt diabetes, when the 1 hr plasma glucose level is equal to or above 140 mg/dL. The [facility] Fire Tower Keeper and [facility] recommends a 135 mg/dL cutoff. Performed By: #### T SPN #### [facility] MAIN BLOOD BANK CLIA [id number] [address] [place] [address] [place] Reagin and Treponema pallidu m IgG and IgM [Interp]on 02-26-2025 T. pallidum IgG+IgM IA Ql (S) Non-Reactive Normal Nonreactive [facility] Comment on above: Order Comment: Speci men Type: BLOOD SPECIMEN Ordering Facility: [facility] Address: [address] [place] [address] Performed By: #### T SPN #### [facility]LOOD BANK CLIA [id number] [address] [place] [address] [place] Reagin+T pallidum IgG+IgM Se rPl-Impon 02-26-2025 Reagin and Treponema pallidum IgG and IgM [Interp] Cannot exclude recent Treponemal infection if specimen collected within 7-10 days after appearance of suspect lesions or 2-3 weeks after an exposure. Clinical correlation is required. Normal [facility] Comment on above: Order Comment: Speci men Type: BLOOD SPECIMEN Ordering Facility: [facility] Address: [address] [place] [address] Performed By: #### T SPN #### CC [facility]IN BLOOD BANK CLIA [id number] [address] [place] [address] TYPE + SCREEN PRENATALon ABO A Normal [facility] Comment on above: Order Comment: Speci men Type: BLOOD SPECIMEN Ordering Facility: [facility] Address: [address] [place] [address] Performed By: #### T SPN #### [facility]LOOD B[facility] CLIA [id number] [address] [place] [address] [place] Rh Nom (Bld) Negative Normal [facility] Comment on above: Order Comment: Speci men Type: BLOOD SPECIMEN Ordering Facility: [facility] Address: [address] [place] [address] Performed By: #### T SPN #### [facility]LOOD B[facility] CLIA [id number] [address] [place] [address] [place] TYPE AND SCREEN EXPIRATION 03/01/2025 23:59 Normal [facility] Comment on above: Order Comment: Speci men Type: BLOOD SPECIMEN Ordering Facility: [facility] Address: [address] [place] [address] Performed By: #### T SPN #### [facility]IN [facility]LOOD B[facility] CLIA [id number] [address] [place] [address] [place] Examination level ultrasound [...] 13 oz EFW by: Hadlock (HC-AC-FL) Extended Vice President Compliance 5.8 mm CM 5.2 mm 56% Nicolaides [...] normal LVOT view: normal 3-vessel view: normal 1-tjribz-nzolezw view: normal Heart / Thorax Situs: situs [...] Read By: Rhonda Rashid M.D. MATERNAL MEDICINE [facility] Radiology Study observation (narrative) [facility] CBC W Auto Differential pane l (Bld)on 11-14-2024 Basophils (Bld) [#/Vol] 0.04 10*3/uL Normal <0.11 [facility] Comment on above: Order Comment: Speci men Type: BLOOD SPECIMEN Ordering Facility: [facility] Address: [address] [place] [address] Performed By: #### T SPN #### [facility]LOOD B[facility] CLIA [id number] [address] [place] [address] [place] Basophils/100 WBC (Bld) 0.5 % Normal [facility] Comment on above: Order Comment: Speci men Type: BLOOD SPECIMEN Ordering Facility: [facility] Address: [address] [place] [address] Performed By: #### T SPN #### [facility]LOOD B[facility] CLIA [id number] [address] [place] [address] [place] Differential cell count method Nom (Bld) Auto Normal [facility] Comment on above: Order Comment: Speci men Type: BLOOD SPECIMEN Ordering Facility: [facility] Address: [address] [place] [address] Performed By: #### T SPN #### [facility]LOOD B[facility] CLIA [id number] [address] [place] [address] [place] Eosinophils (Bld) [#/Vol] 0.10 10*3/uL Normal <0.46 [facility] Comment on above: Order Comment: Speci men Type: BLOOD SPECIMEN Ordering Facility: [facility] Address: [address] [place] [address] Performed By: #### T SPN #### [facility]LOOD B[facility] CLIA [id number] [address] [place] [address] [place] Eosinophils/100 WBC (Bld) 1.1 % Normal [facility] Comment on above: Order Comment: Speci men Type: BLOOD SPECIMEN Ordering Facility: [facility] Address: [address] [place] [address] Performed By: #### T SPN #### [facility]LOOD B[facility] CLIA [id number] [address] [place] [address] [place] Erythrocyte distribution width (RBC) [Ratio] 11.9 % Normal 11.5-15.0 [facility] Comment on above: Order Comment: Speci men Type: BLOOD SPECIMEN Ordering Facility: [facility] Address: [address] [place] [address] Performed By: #### T SPN #### [facility]LOOD B[facility] CLIA [id number] [address] [place] [address] [place] Hematocrit (Bld) [Volume fraction] 36.2 % Normal 36.0-46.0 [facility] Comment on above: Order Comment: Speci men Type: BLOOD SPECIMEN Ordering Facility: [facility] Address: [address] [place] [address] Performed By: #### T SPN #### [facility]LOOD B[facility] CLIA [id number] [address] [place] [address] [place] Hemoglobin (Bld) [Mass/Vol] 12.9 g/dL Normal 11.5-15.5 [facility] Comment on above: Order Comment: Speci men Type: BLOOD SPECIMEN Ordering Facility: [facility] Address: [address] [place] [address] Performed By: #### T SPN #### [facility]LOOD B[facility] CLIA [id number] [address] [place] [address] [place] Immature granulocytes (Bld) [#/Vol] 0.03 10*3/uL Normal <0.10 [facility] Comment on above: Order Comment: Speci men Type: BLOOD SPECIMEN Ordering Facility: [facility] Address: [address] [place] [address] Performed By: #### T SPN #### [facility]LOOD [facility] CLIA [id number] [address] [place] [address] [place] Immature granulocytes/100 WBC (Bld) 0.3 % Normal [facility] Comment on above: Order Comment: Speci men Type: BLOOD SPECIMEN Ordering Facility: [facility] Address: [address] [place] [address] Performed By: #### T SPN #### [facility]LOOD [facility] CLIA [id number] [address] [place] [address] [place] Lymphocytes (Bld) [#/Vol] 1.94 10*3/uL Normal 1.00-4.00 [facility] Comment on above: Order Comment: Speci men Type: BLOOD SPECIMEN Ordering Facility: [facility] Address: [address] [place] [address] Performed By: #### T SPN #### [facility]LOOD [facility] CLIA [id number] [address] [place] [address] [place] Lymphocytes/100 WBC (Bld) 22.1 % Normal [facility] Comment on above: Order Comment: Speci men Type: BLOOD SPECIMEN Ordering Facility: [facility] Address: [address] [place] [address] Performed By: #### T SPN #### [facility]LOOD [facility] CLIA [id number] [address] [place] [address] [place] MCH (RBC) [Entitic mass] 28.9 pg Normal 26.0-34.0 [facility] Comment on above: Order Comment: Speci men Type: BLOOD SPECIMEN Ordering Facility: [facility] Address: [address] [place] [address] Performed By: #### T SPN #### [facility]LOOD [facility] CLIA [id number] [address] [place] [address] [place] MCHC (RBC) [Mass/Vol] 35.6 g/dL Normal 30.5-36.0 [facility] Comment on above: Order Comment: Speci men Type: BLOOD SPECIMEN Ordering Facility: [facility] Address: [address] [place] [address] Performed By: #### T SPN #### [facility]LO[facility] CLIA [id number] [address] [place] [address] [place] MCV (RBC) [Entitic vol] 81.0 fL Normal 80.0-100.0 [facility] Comment on above: Order Comment: Speci men Type: BLOOD SPECIMEN Ordering Facility: [facility] Address: [address] [place] [address] Performed By: #### T SPN #### [facility] CLIA [id number] [address] [place] [address] [place] Monocytes (Bld) [#/Vol] 0.53 10*3/uL Normal <0.87 [facility] Comment on above: Order Comment: Speci men Type: BLOOD SPECIMEN Ordering Facility: [facility] Address: [address] [place] [address] Performed By: #### T SPN #### [facility] CLIA [id number] [address] [place] [address] [place] Monocytes/100 WBC (Bld) 6.0 % Normal [facility] Comment on above: Order Comment: Speci men Type: BLOOD SPECIMEN Ordering Facility: [facility] Address: [address] [place] [address] Performed By: #### T SPN #### [facility] CLIA [id number] [address] [place] [address] [place] Neutrophils (Bld) [#/Vol] 6.14 10*3/uL Normal 1.45-7.50 [facility] Comment on above: Order Comment: Speci men Type: BLOOD SPECIMEN Ordering Facility: [facility] Address: [address] [place] [address] Performed By: #### T SPN #### [facility]LO[facility] CLIA [id number] [address] [place] [address] [place] Neutrophils/100 WBC (Bld) 70.0 % Normal [facility] Comment on above: Order Comment: Speci men Type: BLOOD SPECIMEN Ordering Facility: [facility] Address: [address] [place] [address] Performed By: #### T SPN #### [facility] CLIA [id number] [address] [place] [address] [place] Nucleated RBC (Bld) [#/Vol] 10*3/uL Normal <0.01 [facility] Comment on above: Order Comment: Speci men Type: BLOOD SPECIMEN Ordering Facility: [facility] Address: [address] [place] [address] Performed By: #### T SPN #### [facility] CLIA [id number] [address] [place] [address] [place] Nucleated RBC/100 WBC (Bld) [Ratio] 0.0 /100 WBC Normal [facility] Comment on above: Order Comment: Speci men Type: BLOOD SPECIMEN Ordering Facility: [facility] Address: [address] [place] [address] Performed By: #### T SPN #### [facility] CLIA [id number] [address] [place] [address] [place] Platelet mean volume (Bld) [Entitic vol] 9.3 fL Normal 9.0-12.7 [facility] Comment on above: Order Comment: Speci men Type: BLOOD SPECIMEN Ordering Facility: [facility] Address: [address] [place] [address] Performed By: #### T SPN #### [facility] CLIA [id number] [address] [place] [address] [place] Platelets (Bld) [#/Vol] 176 10*3/uL Normal 150-400 [facility] Comment on above: Order Comment: Speci men Type: BLOOD SPECIMEN Ordering Facility: [facility] Address: [address] [place] [address] Performed By: #### T SPN #### [facility] CLIA [id number] [address] [place] [address] [place] RBC (Bld) [#/Vol] 4.47 10*6/uL Normal 3.90-5.20 [place] Comment on above: Order Comment: Speci men Type: BLOOD SPECIMEN Ordering Facility: [facility] Address: [address] [place] [address] Performed By: #### T SPN #### [facility] CLIA [id number] [address] [place] [address] [place] WBC (Bld) [#/Vol] 8.78 10*3/uL Normal 3.70-11.00 [place] Comment on above: Order Comment: Speci men Type: BLOOD SPECIMEN Ordering Facility: [facility] Address: [address] [place] [address] Performed By: #### T SPN #### [facility] CLIA [id number] [address] [place] [address] [place] Examination level ultrasound on 11-14-2024 Indication First trimester anatomic survey Impression The patient is referred for a first trimester anatomy scan including nuchal translucency measurement as clinically indicated. - Single, live, intrauterine . - [place] rump length measurement is consistent with the [...] view: visualized 4-chamber view with color: visualized 2-eeknwv-skjrdsa view: normal Abdominal cord insertion: normal Stomach: [...] Read By: Cece Brown M.D. MATERNAL MEDICINE [facility] Radiology Study observation (narrative) [facility] HBV surface Ag Ser Qlon 10-18 HBV surface Ag Ql (S) Negative Normal Negative [facility] Comment on above: Order Comment: Speci men Type: BLOOD SPECIMEN Ordering Facility: [facility] Address: [address] [place] [address] Performed By: #### T SPN #### [facility] CLIA [id number] [address] [place] [address] [place] [address] [place] HCV Ab Ser Qlon 11-14-2024 HCV Ab Ql (S) Negative Normal Negative [facility] Comment on above: Order Comment: Speci men Type: BLOOD SPECIMEN Ordering Facility: [facility] Address: [address] [place] [address] Result Comment: The result suggests no evidence of infection with Hepatitis C virus. Should recent infection be suspected, repeat testing may be considered 4-6 weeks after this draw. Performed By: #### T SPN #### [facility] CLIA [id number] [address] [place] [address] [place] HIV 1+2 Ab IA Qlon HIV 1 and 2 Ab IA.rapid Nom (S/P/Bld) Normal [facility] Comment on above: Order Comment: Speci men Type: BLOOD SPECIMEN Ordering Facility: [facility] Address: [address] [place] [address] Result Comment: Test not indicated. Performed By: #### T SPN #### [facility] CLIA [id number] [address] [place] [address] [place] HIV 1+2 Ab+HIV1 p24 Ag IA Ql Non-Reactive Normal Nonreactive [facility] Comment on above: Order Comment: Speci men Type: BLOOD SPECIMEN Ordering Facility: [facility] Address: [address] [place] [address] Performed By: #### T SPN #### [facility] CLIA [id number] [address] [place] [address] [place] HIV immunoassay testing algorithm interpretation (S/P/Bld) [Interp] Normal [facility] Comment on above: Order Comment: Speci men Type: BLOOD SPECIMEN Ordering Facility: [facility] Address: [address] [place] [address] Result Comment: No e vidence of HIV-1 or HIV-2 infection. Should recent infection be suspected, repeat testing may be considered 2-3 weeks after this draw. [place] Rev. Code 3701.243(E): This information has been [...] SPN #### [facility] CLIA [id number] [address] [place] [address] OF [facility] HbA1c (Bld)on 11-14-2024 Average glucose Estimated from glycated hemoglobin (Bld) [Mass/Vol] 82 mg/dL Normal [facility] Comment on above: Order Comment: Speci men Type: BLOOD SPECIMEN Ordering Facility: [facility] Address: [address] [place] [address] Result Comment: eAG: (Estimated average glucose) is a calculated value from HgbA1c and is technical sales representative of the average blood glucose level in the last 2-3 month period. Performed By: #### T SPN #### [facility] CLIA [id number] [address] [place] [address] HbA1c (Bld) [Mass fraction] 4.5 % Normal 4.3-5.6 [facility] Comment on above: Order Comment: Speci men Type: BLOOD SPECIMEN Ordering Facility: [facility] Address: [address] [place] [address] Result Comment: Amer [place] Diabetes Association guidelines indicate that patients with HgbA1c in the range 5.7-6.4% are at increased risk for development of diabetes, and intervention by lifestyle modification may be beneficial. HgbA1c greater or equal to 6.5% is considered diagnostic of diabetes. Performed By: #### T SPN #### [facility] CLIA [id number] [address] [place] [address] OF [place] RUBELLA IGG ANTIBODYon 11-14 RUBELLA IGG AB, QUAL Negative Abnormal Positive [facility] Comment on above: Order Comment: Speci men Type: BLOOD SPECIMEN Ordering Facility: [facility] Address: [address] [place] [address] Result Comment: The result suggests no history of Rubella vaccination or exposure to Rubella virus, however, some individuals with past history of Rubella vaccination may test negative using this test as immunity to Rubella virus wanes over time after vaccination. Please correlate with vaccination history if applicable. Performed By: #### T SPN #### [facility] CLIA [id number] [address] [place] [address] [place] Reagin and Treponema pallidu m IgG and IgM [Interp]on 11-14-2024 T. pallidum IgG+IgM IA Ql (S) Non-Reactive Normal Nonreactive [facility] Comment on above: Order Comment: Speci men Type: BLOOD SPECIMEN Ordering Facility: [facility] Address: [address] [place] [address] Performed By: #### T SPN #### [facility] CLIA [id number] [address] [place] [address] [place] Reagin+T pallidum IgG+IgM Se rPl-Impon 11-14-2024 Reagin and Treponema pallidum IgG and IgM [Interp] Cannot exclude recent Treponemal infection if specimen collected within 7-10 days after appearance of suspect lesions or 2-3 weeks after an exposure. Clinical correlation is required. Normal [facility] Comment on above: Order Comment: Speci men Type: BLOOD SPECIMEN Ordering Facility: [facility] Address: [address] [place] [address] Performed By: #### T SPN #### [facility] CLIA [id number] [address] [place] [address] [place] TYPE + SCREEN PRENATALon ABO A Normal [facility] Comment on above: Order Comment: Speci men Type: BLOOD SPECIMEN Ordering Facility: [facility] Address: [address] [place] [address] Performed By: #### T SPN #### [facility] CLIA [id number] [address] [place] [address] [place] Rh Nom (Bld) Negative Normal [facility] Comment on above: Order Comment: Speci men Type: BLOOD SPECIMEN Ordering Facility: [facility] Address: [address] [place] [address] Performed By: #### T SPN #### [facility] CLIA [id number] [address] [place] [address] [place] TYPE AND SCREEN EXPIRATION 11/17/2024 23:59 Normal [facility] Comment on above: Order Comment: Speci men Type: BLOOD SPECIMEN Ordering Facility: [facility] Address: [address] [place] [address] Performed By: #### T SPN #### [facility] CLIA [id number] [address] [place] [address] [place] Bacteria Ur Culton Bacteria identified Cx Nom (U) ORGANISM ID: 1 10,000 -<50,000 CFU/ml Normal urogenital conner Normal [facility] Comment on above: Performed By: #### T SPN #### [facility] CLIA [id number] [address] [place] [address] [place] C. trachomatis+N. gonorrhoea e DNA LETTY+probe Ql (Unsp spec)on 10-04-2024 C. trachomatis rRNA LETTY+probe Ql (Unsp spec) Not detected Normal Not detected [facility] Comment on above: Order Comment: Speci men Type: BLOOD SPECIMEN Ordering Facility: [facility] Address: [address] [place] [address] Performed By: #### T SPN #### [facility] CLIA [id number] [address] [place] [address] [place] N. gonorrhoeae rRNA LETTY+probe Ql (Unsp spec) Not detected Normal Not detected [facility] Comment on above: Order Comment: Speci men Type: BLOOD SPECIMEN Ordering Facility: [facility] Address: [address] [place] [address] Performed By: #### T SPN #### [facility] CLIA [id number] [address] [place] [address] [place] PAP TESTon 10-04-2024 ADEQUACY Normal [facility] Comment on above: Order Comment: Speci men Type: FLUID SPECIMEN Ordering Facility: [facility] Address: [address] [place] [address] Result Comment: Sati sfactory for interpretation. Transformation zone present Performed By: #### L [id number] #### [facility] CLIA [id number] [address] [place] [address] [place] [facility] CLIA [id number] [address] [place] [address] [place] CASE REPORT Normal [facility] Comment on above: Order Comment: Speci men Type: FLUID SPECIMEN Ordering Facility: [facility] Address: [address] [place] [address] Result Comment: Gyne cologic Cytology Report Case: [id number] Authorizing Provider: Corrie Garcia APRN.CNM Collected: 10/04/2024 09:34 AM Ordering Location: OB/Gynecology Received: 10/04/2024 12:21 PM First Screen: Steven Augustin, CT, ASCP Specimen: Pap Test, ThinPrep, Cervix Performed By: #### L [id number] #### [facility] CLIA [id number] [address] [place] [address] [place] [facility] CLIA [id number] [address] [place] [address] [place] CLINICAL HISTORY, CYTOLOGY, QUALITY ASSURANCE ASSESSOR Routine Exam Normal [facility] Comment on above: Order Comment: Speci men Type: FLUID SPECIMEN Ordering Facility: [facility] Address: [address] [place] [address] Performed By: #### L [id number] #### [facility] CLIA [id number] [address] [place] [address] [place] [facility] CLIA [id number] [address] [place] [address] [place] FINAL PERFORMING LAB Normal [facility] Comment on above: Order Comment: Speci men Type: FLUID SPECIMEN Ordering Facility: [facility] Address: [address] [place] [address] Result Comment: Tech nical component, lan engineer screening performed at [facility], [address], [place] [id number] CLIA# [id number] Diagnostic interpretation performed at [facility], [address] [place] [id number] CLIA# [id number] Encoding Clerk: Loretta Thakur M.D. Performed By: #### L [id number] #### [facility] CLIA [id number] [address] [place] [address] [place] [facility] CLIA [id number] [address] [place] [address] [place] INTERPRETATION, CYTOLOGY, QUALITY ASSURANCE ASSESSOR Normal [facility] Comment on above: Order Comment: Speci men Type: FLUID SPECIMEN Ordering Facility: [facility] Address: [address] [place] [address] Result Comment: Nega tive for intraepithelial lesion or malignancy. at 1504 EDT Performed By: #### L [id number] #### [facility] CLIA [id number] [address] [place] [address] [place] [facility] CLIA [id number] [address] [place] [address] [place] LMP 08/08/2024 Normal [facility] Comment on above: Order Comment: Speci men Type: FLUID SPECIMEN Ordering Facility: [facility] Address: [address] [place] [address] Performed By: #### L [id number] #### [facility] CLIA [id number] [address] [place] [address] [place] [facility] CLIA [id number] [address] [place] [address] [place] PAP DISCLAIMER COMMENT The Pap Smear is a screening test for cervical cancer. False negative results occur with all screening tests, emphasizing the need for rescreening at recommended intervals, and clinical correlation. Normal [facility] Comment on above: Order Comment: Speci men Type: FLUID SPECIMEN Ordering Facility: [facility] Address: [address] [place] [address] Performed By: #### L [id number] #### [facility] CLIA [id number] [address] [place] [address] [place] [address] [facility] CLIA [id number] [address] [place] [address] [place] PAP SHEARER SCREEN MEASURER AND TRIMMER COMMENT This specimen has been analyzed by the ThinPrep Imaging System, an automated imaging and review system, which assists the laboratory in evaluating cells on ThinPrep Pap tests. Following automated imaging, selected skaggs from every slide are reviewed by a lan engineer. Normal [facility] Comment on above: Order Comment: Speci men Type: FLUID SPECIMEN Ordering Facility: [facility] Address: [address] [place] [address] Performed By: #### L [id number] #### [facility] CLIA [id number] [address] [place] [address] [place] [facility] CLIA [id number] [address] [place] [address] [place] POC DOOR CLAMP OPERATOR ULTRASOUNDon 10-05-19 25 Indication Viability; confirm cardiac activity, Uncertain dates [...] Read By: Corrie Garcia CNM MATERNAL MEDICINE [facility] Radiology Study observation (narrative) [facility] TRICHOMONAS VAGINALIS NAATon 10-04-2024 T. vaginalis DNA LETTY+probe Ql (Unsp spec) Not detected Normal Not detected [facility] Comment on above: Order Comment: Speci men Type: BLOOD SPECIMEN Ordering Facility: [facility] Address: [address] [place] [address] Performed By: #### T SPN #### [facility] CLIA [id number] [address] [place] [address] OF [place] Urgent Care Visit Reporton 0 07-20-2024 Urgent Care Visit Report [facility] [address], [address] [place] [id number] OFFICE VISIT Date of Service: 07/20/24 MR#: [id number] Acct: [id number] Name: Rosas Britton Rep #: [id number] : 2000 Provider: SHARAD Drake Age/Sex: 23/F Location: [facility] Status: Signed Intake Vital Signs 07/19/23 12:13 07/20/24 16:01 Height 5 ft 4 in BP 110/60 Blood Pressure Location Lt brachial Position Sitting Respiration 16 Pulse 73 Pulse Source NIBP Temp 98.3 F Temp Source Oral Pulse Oximetry (%) 98 Oxygen Delivery Method room air Intake Visit Reasons: HEADACHE, COUGH Chief Complaint: cough, MCDANIEL, ST, congestion Buffet Server Required: No Is patient in pain?: No [...] fever/ BA HPI HPI Chief Complaint: cough, MDCANIEL, ST, congestion Details: Rosas Britton, is a [...] Exam Const General: cooperative and healthy appearing [facility] Head: normal to inspection Ears: hearing grossly [...] Lucero Covid FLUAB PCR Today Medications: New yrkzxxetwmnkvqc-AY-la aifenesin 60-15-400 mg (Capmist DM) do not [...] Grace Signature: Date (if applicable) CC: Normal [facility] Vital Signs Date Time Vital Sign Value Performing Clinician Rhonda willson 03-29-2025 10:59-0400 Body mass index (BMI) [Ratio] 34.78 kg/m2 Corrie Garcia APRN.KAVIN Work Phone: [facility] 03-29-2025 10:59-0400 Body weight 94.8 kg Corrie Garcia APRN.CNM Work Phone: [facility] 03-29-2025 10:59-0400 Diastolic blood pressure 60 mm[Hg] Corrie Garcia APRN.KAVIN Work Phone: [facility] 03-29-2025 10:59-0400 Systolic blood pressure 118 mm[Hg] Corrie Garcia APRN.KAVIN Work Phone: [facility] 03-14-2025 11:02-0400 Body mass index (BMI) [Ratio] 33.61 kg/m2 Corrie Garcia AREA INTELLIGENCE TECHNICIAN.CNM Work Phone: [facility] 03-14-2025 11:02-0400 Body weight 91.63 kg Corrie Garcia AREA INTELLIGENCE TECHNICIAN.CNM Work Phone: [facility] 03-14-2025 11:02-0400 Diastolic blood pressure 60 mm[Hg] Corrie Garcia AREA INTELLIGENCE TECHNICIAN.CNM Work Phone: [facility] 03-14-2025 11:02-0400 Systolic blood pressure 110 mm[Hg] Corrie Garcia AREA INTELLIGENCE TECHNICIAN.CNM Work Phone: [facility] 02-26-2025 08:09-0400 Body mass index (BMI) [Ratio] 33.45 kg/m2 Hanh Acevedo MD Work Phone: [facility] 02-26-2025 08:09-0400 Body weight 91.17 kg Hanh Acevedo MD Work Phone: [facility] 02-26-2025 08:09-0400 Diastolic blood pressure 60 mm[Hg] Hanh Acevedo MD Work Phone: [facility] 02-26-2025 08:09-0400 Systolic blood pressure 110 mm[Hg] Hanh Acevedo MD Work Phone: [facility] 02-05-2025 12:37-0400 Body mass index (BMI) [Ratio] 32.85 kg/m2 Rafal Resendiz MD Work Phone: [facility] 02-05-2025 12:37-0400 Body weight 89.54 kg Rafal Resendiz MD Work Phone: [facility] 02-05-2025 12:37-0400 Diastolic blood pressure 72 mm[Hg] Rafal Resendiz MD Work Phone: [facility] 02-05-2025 12:37-0400 Systolic blood pressure 120 mm[Hg] Rafal Resendiz MD Work Phone: [facility] 01-01-2025 10:05-0400 Body mass index (BMI) [Ratio] 30.62 kg/m2 Rafal Resendiz MD Work Phone: [facility] 01-01-2025 10:05-0400 Body weight 83.46 kg Rafal Resendiz MD Work Phone: [facility] 01-01-2025 10:05-0400 Diastolic blood pressure 60 mm[Hg] Rafal Resendiz MD Work Phone: [facility] 01-01-2025 10:05-0400 Systolic blood pressure 110 mm[Hg] Rafal Resendiz MD Work Phone: [facility] 12-12-2024 10:15-0400 Body mass index (BMI) [Ratio] 29.62 kg/m2 Rafal Resendiz MD Work Phone: [facility] 12-12-2024 10:15-0400 Body weight 80.74 kg Rafal Resendiz MD Work Phone: [facility] 12-12-2024 10:15-0400 Diastolic blood pressure 70 mm[Hg] Rafal Resendiz MD Work Phone: [facility] 12-12-2024 10:15-0400 Systolic blood pressure 114 mm[Hg] Rafal Resendiz MD Work Phone: [facility] 11-14-2024 13:45-0400 Body mass index (BMI) [Ratio] 29.05 kg/m2 Corrie Garcia AREA INTELLIGENCE TECHNICIAN.CNM Work Phone: [facility] 11-14-2024 13:45-0400 Body weight 79.2 kg Corrie Garcia AREA INTELLIGENCE TECHNICIAN.CNM Work Phone: [facility] 11-14-2024 13:45-0400 Diastolic blood pressure 66 mm[Hg] Corrie Garcia AREA INTELLIGENCE TECHNICIAN.CNM Work Phone: [facility] 11-14-2024 13:45-0400 Systolic blood pressure 122 mm[Hg] Corrie Garcia AREA INTELLIGENCE TECHNICIAN.CNM Work Phone: [facility] 10-04-2024 08:40-0400 Body height 165.1 cm Corrie Garcia AREA INTELLIGENCE TECHNICIAN.CNM Work Phone: [facility] 10-04-2024 08:40-0400 Body mass index (BMI) [Ratio] 28.62 kg/m2 Corrie Violetaniyah AREA INTELLIGENCE TECHNICIAN.CNM Work Phone: [facility] 10-04-2024 08:40-0400 Body weight 78.02 kg Corrie Violetaniyah AREA INTELLIGENCE TECHNICIAN.CNM Work Phone: [facility] 10-04-2024 08:40-0400 Diastolic blood pressure 64 mm[Hg] Corrie Violetaniyah AREA INTELLIGENCE TECHNICIAN.CNM Work Phone: [facility] 10-04-2024 08:40-0400 Systolic blood pressure 110 mm[Hg] Corrieyvonne Garcia AREA INTELLIGENCE TECHNICIAN.CNM Work Phone: [facility] Encounters Encounter Date Encounter Type Care Provider Facility Start: 05-26-2025 End: 05-26-2025 ambulatory No Primary Care Physician Facility:[facility] Start: 05-20-2025 End: 05-20-2025 [facility] Start: 05-15-2025 End: 05-15-2025 ambulatory [facility] Start: 05-09-2025 End: 05-09-2025 ambulatory BOUCHRA PARRA Facility:[facility] Start: 05-02-2025 End: 05-02-2025 ambulatory [facility] Start: 04-22-2025 End: 04-22-2025 ambulatory CORRIE GARCIA Facility:[facility] Start: 04-10-2025 End: 04-10-2025 ambulatory [facility] Start: 03-29-2025 End: 03-29-2025 Patient encounter procedure Corrie Garcia AREA INTELLIGENCE TECHNICIAN.CNM Work Phone: [facility] Comment on above: Encounter for superv ision of normal first in second trimester (HCC) (Primary Dx); 32 weeks gestation of (HCC); Rh negative state in antepartum period (HCC) Start: 03-29-2025 End: 03-29-2025 ambulatory CORRIE [facility] Facility:[facility] Start: 03-26-2025 End: 03-26-2025 ambulatory Corrie Garcia APRN.KAVIN Work Phone: OB/Gynecology Comment on above: Allergy medicine Start: 03-14-2025 End: 03-14-2025 Patient encounter procedure Corrie Garcia APRN.CNM Work Phone: OB/Gynecology Comment on above: Encounter for superv ision of normal first in second trimester (HCC) (Primary Dx); 30 weeks gestation of (HCC); Rh negative state in antepartum period ([facility]); Rubella non-immune status, antepartum ([facility]) Start: 03-14-2025 End: 03-14-2025 ambulatory [facility] Facility:[facility] Start: 03-04-2025 End: 03-06-2025 Telephone encounter Corrie Garcia APRN.CNM Work Phone: OB/Gynecology Comment on above: Breast [...] Start: 02-26-2025 End: 02-26-2025 ambulatory HANH ACEVEDO Facility:[facility] Start: 02-05-2025 End: 02-05-2025 Patient encounter procedure Rafal Resendiz MD Work Phone: OB/Gynecology Comment on above: Encounter for superv ision of normal first in second trimester (HCC) (Primary Dx); 25 weeks gestation of (HCC); Encounter for supervision of normal first in first trimester (HCC) Start: 02-05-2025 End: 02-05-2025 ambulatory RAFAL RESENDIZ Facility:[facility] Start: 01-01-2025 End: 01-01-2025 Patient encounter procedure [employer] [facility] Comment on above: Encounter for anatomic survey (HCC) [Z36.89] (Primary Dx); with uncertain dates in first trimester (HCC) Encounter for superv ision of normal first in second trimester ([facility]) (Primary Dx); 20 weeks gestation of ([facility]) Start: 01-01-2025 End: 01-01-2025 ambulatory CORREI GARCIA Facility:[facility] Start: 12-12-2024 End: 12-12-2024 Patient encounter procedure Rafal Resendiz MD Work Phone: OB/Gynecology Comment on above: Encounter for superv ision of normal first in second trimester ([facility]) (Primary Dx); Rubella non-immune status, antepartum ([facility]); 17 weeks gestation of ([facility]) Start: 12-12-2024 End: 12-12-2024 ambulatory RAFAL RESENDIZ Facility:[facility] Start: 11-14-2024 End: 11-14-2024 ambulatory CORRIE GARCIA Facility:[facility] Start: 11-14-2024 End: 11-14-2024 Patient encounter procedure Corrie Garcia AREA INTELLIGENCE TECHNICIAN.CNM Work Phone: OB/Gynecology Comment on above: 13 weeks gestation o f (HCC) (Primary Dx); Encounter for supervision of normal first in second trimester ([facility]); Encounter for supervision of normal first in first trimester ([facility]) Encounter for antena keisha screening for malformation using ultrasound ([facility]) (Primary Dx); Encounter for (NT) nuchal translucency scan ([facility]); 13 weeks gestation of ([facility]) Start: 11-14-2024 End: 11-14-2024 ambulatory CORRIE GARCIA Facility:[facility] Start: 10-04-2024 End: 12-04-2024 Follow-up encounter Corrie Garcia APRN.CNM Work Phone: OB/Gynecology Start: 10-04-2024 End: 10-04-2024 ambulatory CORRIE GARCIA Facility:[facility] Start: 10-04-2024 End: 10-04-2024 Patient encounter procedure Corrie Garcia APRN.CNM Work Phone: OB/Gynecology Comment on above: with uncer tain dates in first trimester (Primary Dx); Screening for cervical cancer; Screening for human papillomavirus; Encounter for supervision of normal first in first trimester; Uncomplicated asthma, unspecified asthma severity, unspecified whether persistent; 7 weeks gestation of Start: 07-20-2024 End: 07-20-2024 ambulatory Ramiro OROURKE Facility:[facility] Procedures Date Procedure Procedure Detail Performing Clinician Start: 02-26-2025 Antibody screen AMANDA GARCIA Comment on above: Order Comment: Speci men Type: BLOOD SPECIMEN Ordering Facility: [facility] Address: [address] [place] [address] Performed By: #### T SPN #### [facility] CLIA [id number] [address] [place] [address] Start: 01-01-2025 Us preg uterus after 1st trimest / gestation Corrie Garcia APRN.KAVIN Work Phone: Start: 11-14-2024 Antibody screen AMANDA GARCIA Comment on above: Order Comment: Speci men Type: BLOOD SPECIMEN Ordering Facility: [facility] Address: [address] [place] [address] Performed By: #### T SPN #### [facility] CLIA [id number] [address] [place] [address] [place] Start: 11-14-2024 Us preg uterus after 1st trimest /1st gestation Corrie Garcia APRN.KAVIN Work Phone: Start: 10-04-2024 Us uterus limited 1/> fetuses Corrie Garcia APRN.KAVIN Work Phone: Plan of Treatment Date Care Activity Detail Author Start: 2077 RSV Vaccine (1 - 1-d ose 75+ series) RSV Vaccine (1 - 1-dose 75+ series) [facility] Start: 10-05-2027 Screening for malign ant neoplasm of cervix Cervical Cancer Screening [facility] Start: 10-04-2025 GC (Gonorrhea) Screening (18-24) GC (Gonorrhea) Screening (18-24) [facility] Start: 10-04-2025 Screening for Chlamy radha trachomatis Chlamydia Screening () [facility] Start: 04-22-2025 End: 04-22-2025 Patient encounter procedure 04/22/2025 2:30 PM EDT Routine Office Visit OB/Gynecology [address] [place] [address] Corrie Garcia APRN.CN [address] [place] [address] OB OB/Gynecology Comment on above: OB Start: 04-10-2025 End: 04-10-2025 Patient encounter procedure 04/10/2025 8:00 AM EDT Routine Office Visit OB/Gynecology [address] [place] [address] Corrie Garcia APRN.CN [address] [place] [address] OB OB/Gynecology Comment on above: OB Start: 03-29-2025 End: 03-29-2025 Patient encounter procedure 03/29/2025 11:15 AM EDT Routine Office Visit OB/Gynecology [address] [place] [address] Corrie Garcia APRN.CN [address] [place] [address] OB OB/Gynecology Comment on above: OB Start: 03-26-2025 RSV Vaccine (1 - Ris k 1-dose series) RSV Vaccine (1 - Risk 1-dose series) [facility] Start: 03-18-2025 Influenza vaccination [facility] Start: 03-14-2025 End: 03-14-2025 Patient encounter procedure 03/14/2025 11:15 AM EDT Routine Office Visit OB/Gynecology [address] [place] [address] Corrie Garcia APRN.[facility] [address] [place] [address] OB OB/Gynecology Comment on above: OB Start: 02-26-2025 End: 05-28-2025 ANEMIA REFLEX PANEL ANEMIA REFLEX PANEL Lab Routine 25 weeks gestation of (HCC) Encounter for supervision of normal first in second trimester ([facility]) Expected: 02/26/2025 (Approximate), Expires: 05/28/2025 [facility] Comment on above: Expected: 02/26/2025 (Approximate), Expires: 05/28/2025 Start: 02-26-2025 End: 02-05-2026 GESTATIONAL GLUCOSE SCREEN, 1-HOUR, 50 GRAM, NON-FASTING GESTATIONAL GLUCOSE SCREEN, 1-HOUR, 50 GRAM, NON-FASTING Lab Routine 25 weeks gestation of ([facility]) Encounter for supervision of normal first in second trimester ([facility]) Expected: 02/26/2025 (Approximate), Expires: 02/05/2026 [facility] Work Phone: Comment on above: Expected: 02/26/2025 (Approximate), Expires: 02/05/2026 Start: 02-26-2025 End: 02-05-2026 SYPHILIS TREPONEMAL W/REFLEX SYPHILIS TREPONEMAL W/REFLEX Lab Routine 25 weeks gestation of (HCC) Encounter for supervision of normal first in second trimester ([facility]) Expected: 02/26/2025 (Approximate), Expires: 02/05/2026 [facility] Comment on above: Expected: 02/26/2025 (Approximate), Expires: 02/05/2026 Start: 02-26-2025 End: 05-28-2025 TYPE + SCREEN TYPE + SCREEN Blood Bank Routine 25 weeks gestation of (HCC) Encounter for supervision of normal first in second trimester (HCC) Expected: 02/26/2025 (Approximate), Expires: 05/28/2025 [facility] Comment on above: Expected: 02/26/2025 (Approximate), Expires: 05/28/2025 Start: 02-26-2025 End: 02-26-2025 Patient encounter procedure 02/26/2025 8:10 AM EDT Routine Office Visit OB/Gynecology [address] [place] [address] Hanh Hines MD [address] [place] [address] Glucose/OB OB/Gynecology Comment on above: Glucose/OB Start: 02-26-2025 End: 02-26-2025 ambulatory 02/26/2025 8:00 AM EDT Results Only Bryan Larsenwn COUNTS INCLUDE 234 BEDS AT THE [facility] Laboratory [address] [place] [address] Glucose lab [facility] Comment on above: Glucose lab Start: 01-28-2025 End: 01-28-2025 Patient encounter procedure 01/28/2025 8:45 AM EDT Routine Office Visit OB/Gynecology [address] [place] [address] Steven Loza APRN.LCAC RADAR OPERATOR/NAVIGATOR [address] [place] [address] OB OB/Gynecology Comment on above: OB Start: 01-01-2025 End: 01-01-2025 Patient encounter procedure [facility] Comment on above: Anatomy Anatomy/OB Start: 12-12-2024 End: 12-12-2024 Patient encounter procedure 12/12/2024 10:10 AM EDT Routine Office Visit OB/Gynecology [address] [place] [address] Rafal Resendiz MD [address] [place] [address] OB Routine OB/Gynecology Comment on above: OB Routine Start: 11-08-2024 End: 11-08-2024 Patient encounter procedure Maternal Medicine Comment on above: Anatomy and АННА Start: 10-04-2024 End: 01-03-2025 ANEMIA REFLEX PANEL ANEMIA REFLEX PANEL Lab Routine with uncertain dates in first trimester Expected: 10/04/2024, Expires: 01/03/2025 [facility] Work Phone: Comment on above: Expected: 10/04/2024 , Expires: 01/03/2025 Start: 10-04-2024 End: 01-03-2025 Hemoglobin A1c in Blood HEMOGLOBIN A1C Lab Routine with uncertain dates in first trimester Expected: 10/04/2024, Expires: 01/03/2025 [facility] Comment on above: Expected: 10/04/2024 , Expires: 01/03/2025 Start: 10-04-2024 End: 01-03-2025 Hepatitis B virus surface Ag [Presence] in Serum HEPATITIS B SURFACE ANTIGEN Lab Routine with uncertain dates in first trimester Expected: 10/04/2024, Expires: 01/03/2025 [facility] Comment on above: Expected: 10/04/2024 , Expires: 01/03/2025 Start: 10-04-2024 End: 01-03-2025 Hepatitis C virus Ab [Presence] in Serum HEPATITIS C ANTIBODY IA WITH CONFIRMATION Lab Routine with uncertain dates in first trimester Expected: 10/04/2024, Expires: 01/03/2025 [facility] Comment on above: Expected: 10/04/2024 , Expires: 01/03/2025 Start: 10-04-2024 End: 01-03-2025 HIV 1+2 Ab [Presence] in Serum or Plasma by Immunoassay HIV 1/2 COMBO WITH REFLEX TO DIFFERENTIATION Lab Routine with uncertain dates in first trimester Expected: 10/04/2024, Expires: 01/03/2025 [facility] Comment on above: Expected: 10/04/2024 , Expires: 01/03/2025 Start: 10-04-2024 End: 10-04-2025 OBSTETRIC ULTRASOUND WHI OBSTETRIC ULTRASOUND WHI Anc Imaging Routine with uncertain dates in first trimester Expected: 10/04/2024, Expires: 10/04/2025 [facility] Comment on above: Expected: 10/04/2024 , Expires: 10/04/2025 Start: 10-04-2024 End: 01-03-2025 RUBELLA IGG ANTIBODY RUBELLA IGG ANTIBODY Lab Routine with uncertain dates in first trimester Expected: 10/04/2024, Expires: 01/03/2025 [facility] Comment on above: Expected: 10/04/2024 , Expires: 01/03/2025 Start: 10-04-2024 End: 01-03-2025 SYPHILIS TREPONEMAL W/REFLEX SYPHILIS TREPONEMAL W/REFLEX Lab Routine with uncertain dates in first trimester Expected: 10/04/2024, Expires: 01/03/2025 [facility] Comment on above: Expected: 10/04/2024 , Expires: 01/03/2025 Start: 10-04-2024 End: 01-03-2025 TYPE + SCREEN TYPE + SCREEN Blood Bank Routine with uncertain dates in first trimester Expected: 10/04/2024, Expires: 01/03/2025 [facility] Comment on above: Expected: 10/04/2024 , Expires: 01/03/2025 Start: 03-18-2024 Covid-19 Vaccine ( season) Covid-19 Vaccine () [facility] Start: 03-18-2024 Influenza vaccination Influenza Vacc ine (#1) [facility] Start: 12-14-2023 Screening for malign ant neoplasm of cervix Cervical Cancer Screening [facility] Start: 2021 Hepatitis B Vaccine (1 of 3 - 19+ 3-dose series) Hepatitis B Vaccine (1 of 3 - 19+ 3-dose series) [facility] Start: 2021 Urine microalbumin profile DTaP,Tdap,Td Vaccine (1 - Tdap) [facility] Start: 2020 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 Annual PCP Team Chronic Disease Visit [facility] Start: 2020 Anxiety Screening Anxiety Screening [facility] Start: 2020 Depression Screening Depression Scre ening [facility] Start: 2020 GC (Gonorrhea) Screening (18-24) GC (Gonorrhea) Screening (18-) [facility] Start: 2020 Hepatitis C screening Hepatitis C Sc reening [facility] Start: 2020 HIV screening HIV Screening [facility] Start: 2020 Screening for Chlamy radha trachomatis Chlamydia Screening (18-) [facility] Start: 2018 Meningococcal B Vacc ine (1 of 2 - Standard) Meningococcal B Vaccine (1 of 2 - Standard) [facility] Start: 2017 HPV Vaccine (1 - 3-d ose series) HPV Vaccine (1 - 3-dose series) [facility] Start: 2016 Peds To Adult Transition Annual Assessment Peds To Adult Transition Annual Assessment [facility] Start: 2014 Peds To Adult Transition Initial Discussion Peds To Adult Transition Initial Discussion [facility] Start: 2006 Asthma Control Test Asthma Control T est [facility] Start: 2004 Asthma Action Plan Asthma Action Yang n [facility] Bacteria identified in Urine by Culture BACTERIAL CULTURE, URINE Microbiology Routine with uncertain dates in first trimester 10/04/2024 9:34 AM EDT [facility] Chlamydia trachomatis+Neisseria gonorrhoeae DNA [Presence] in Unspecified specimen by LETTY with probe detection GONORRHEA/CHLAMYDIA NAAT Lab Routine with uncertain dates in first trimester 10/04/2024 9:34 AM EDT [facility] PAP TEST PAP TEST Lab Rou jo with uncertain dates in first trimester Screening for cervical cancer Screening for human papillomavirus 10/04/2024 9:34 AM EDT [facility] TRICHOMONAS VAGINALI S NAAT TRICHOMONAS VAGINALIS NAAT Lab Routine with uncertain dates in first trimester 10/04/2024 9:34 AM EDT [facility] URINE OB DIP B/O URINE OB DIP B/ O Lab Routine Encounter for supervision of normal first in second trimester ([facility]CC) Ordered: 02/26/2025 [facility] Work Phone: Comment on above: Ordered: 02/26/2025 Immunizations Immunization Date Immunization Notes Care Provider Sheri gill 02-26-2025 RHO(D) immune globulin- IV or IM Hanh Acevedo MD Work Phone: [facility] Work Phone: NEGATED: Highlighted row has not occurred!02-26-2025 RHO(D) immune globulin- IV or IM Hanh Acevedo MD Work Phone: [facility] Payers Date Payer Category Payer Private Health Insurance [employer] PPO [id number] 2025 Unknown [id number] 2024 Self-pay 2024 Blue [place] Blue [facility] BLUE [facility] PPO [id number] 2024 Unknown [id number] Unknown [id number] Unknown [id number] Unknown [id number] Social History Date Type Detail Facility [facility]: [facility] Start: 10-02-2024 Tobacco use and exposure Smokeless t obacco non-user [facility] Start: 10-04-2024 End: 02-05-2025 Alcoholic beverage intake Ex-drinker (finding) [facility] Start: 10-04-2024 End: 11-14-2024 History of Social function [facility] Start: 10-04-2024 End: 11-14-2024 Tobacco use panel [facility] Start: 10-02-2024 Education 13 [facility] Start: 10-02-2024 Alcohol Comment occasionally [facility] Start: 08-28-2024 [facility] Start: 2002 Sex assigned at Not on file C leveland [facility] Start: 09-12-2024 National Score (1-10 0), lower number is lower risk 50 [facility] Goals Date Patient Goal Desired Activity /State Personal health goal Clinical Notes 10-02-2024 to 05-14-2025 Quick Notes - Corrie Garcia APRN.[facility] - 03/29/2025 11:08 AM EDTPrenatal Quick Notes - Corrie Garcia APRN.[facility] - 03/29/2025 11:08 AM EDTPatient InstructionsPatient Instructions Note Date & Type Note Facility 05-14-2025 Note HNO ID: [id number] Author: FRED LI, ? Service: ? Author Type: Patient Multigraph Operator Type: Progress Notes Filed: 05/15/2025 09:30 Note Text: POPULATION HEALTH NAVIGATION OUTREACH Action/I 3 rd attempt Unable message to add mortgage processing clerk to OB provider field, verify/est pcp mailbox full My chart sent Reason for Outreach Medicaid OB/Peds Care Gaps due: N/A Patient Contacted: Unable or unnecessary to reach patient: Unable to reach patient Unable to leave message readeot message sent Navigation Signature: Fred Li Population Health Navigator May 14, 2025 10:53 AM [facility] 05-14-2025 Note Patient Outreach (NE TNAV) ROSAS BRITTON ([id number]) 4 F Date Time Provider Department 05/14/25 FRED LI During your visit today, we recorded the following information about you: Fred Li 05/15/2025 9:30 AM Addendum POPULATION HEALTH NAVIGATION OUTREACH Action/I 3 rd attempt Unable message to add mortgage processing clerk to OB provider field, verify/est pcp mailbox [...] Encounter Status:Closed by FRED LI on 05/14/25 [facility] 05-10-2025 Note HNO ID: [id number] Author: PALMA MUÑOZ MA Service: ? Author Type: Specialist Icu Type: Progress Notes Filed: 05/10/2025 11:50 Note Text: POPULATION HEALTH NAVIGATION OUTREACH Action/ 2nd attempt: Called and unable to leave message to call back . Reason for Outreach Medicaid OB/Peds Care Gaps due: N/A Patient Contacted: Unable or unnecessary to reach patient: Unable to reach patient Unable to leave message Navigation Signature: Palma Fleming MA May 10, 2025 11:49 AM [facility] 05-09-2025 Note HNO ID: [id number] Author: PALMA MUÑOZ MA Service: ? Author Type: Specialist Icu Type: Progress Notes Filed: 05/09/2025 13:29 Note Text: POPULATION HEALTH NAVIGATION OUTREACH Action/ 1st attempt: Called and unable to leave message to call back to discuss mortgage processing clerk. MC message sent. Reason for Outreach Medicaid OB/Peds Care Gaps due: N/A Patient Contacted: Unable or unnecessary to reach patient: Unable to reach patient Unable to leave message [employer]lab message sent Navigation Signature: Palma Fleming MA May 09, 2025 1:29 PM [facility] 05-09-2025 Note Patient Outreach (NE TNAV) ROSAS BRITTON ([id number]) 4 F Date Time Provider Department 05/09/25 PALMA MUÑOZ During your visit today, we recorded the following information about you: Palma Muñoz MA 05/09/2025 1:29 PM Signed POPULATION HEALTH NAVIGATION OUTREACH Action/ 1st attempt: Called and unable to leave message to call back to discuss mortgage processing clerk. MC message sent. Reason for Outreach Medicaid OB/Peds Care Gaps due: N/A Patient Contacted: Unable or unnecessary to reach patient: Unable to reach patient Unable to leave message [employer]lab message sent Navigation Signature: Palma Fleming MA May 09, 2025 1:29 PM Palma Muñoz MA 05/10/2025 11:50 AM Signed POPULATION HEALTH NAVIGATION OUTREACH Action/ 2nd attempt: [...] Encounter Status:Closed by PALMA MUÑOZ on 05/09/25 [facility] 03-29-2025 Progress note Formatting of t his [...] or sooner if needed Corrie Garcia APRN.CNM [facility] 03-29-2025 Miscellaneous Notes Formattin g of this [...] Corrie Garcia APRN.CNM documented in this encounter [facility] 03-29-2025 Instructions Graciela Blair MA - 03/29/2025 10:56 AM EDT SEQUENTIAL SCREENINGS The [facility] offers sequential screenings for women who are [...] It will require an appointment with our fuel storage technician. This is not an ultrasound performed [...] the above symptoms, contact our office at [phone] and ask to speak with a nurse. After hours, you can call doctors registry at [phone] OR call [facility] at [phone] and ask to have the doctor contract loader paged. If you consider this an emergency, dial or go to your nearest emergency department. NEED HELP? Are you dealing with a violent or abusive relationship? Are you a victim of rape or sexual assult? Call [facility] ([facility] 24 hour Crisis Hotline: 267.707.9283 or 972-803-0905. MANUAL Your Guide to a Healthy manual is now on-line. Visit [email or web address] [email or web address] to download your free copy documented in this encounter [facility] 03-14-2025 Progress note Formatting of t his note might be different from the original. S: Rosas Britton is a 24 year old female who presents at 30 weeks gestation for a routine visit. Positive movements. Recent feelings of fatigue/malaise- unsure if getting sick. [place] shaky at work and drank soda and [...] spontaneous onset of labor and epidural - Medical Biller Coder handout given - Interested in eating dates/ red raspberry leaf tea- hand out given - PTL precautions reviewed and when to call office - RTO 2 weeks Corrie Garcia APRN.CNM [facility] 03-14-2025 Miscellaneous Notes Formattin g of this note might be different from the original. S: Rosas Britton is a 24 year old female who presents at 30 weeks gestation for a routine visit. Positive movements. Recent feelings of fatigue/malaise- unsure if getting sick. [place] shaky at work and drank soda and [...] spontaneous onset of labor and epidural - Medical Biller Coder handout given - Interested in eating dates/ red raspberry leaf tea- hand out given - PTL precautions reviewed and when to call office - RTO 2 weeks Corrie Garcia APRN.CNM documented in this encounter [facility] 03-14-2025 Note HNO ID: [id number] Author: CORRIE GARCIA APRN.CNM Service: ? Author Type: Operations Support Specialist Type: Progress Notes Filed: 03/14/2025 11:36 Note Text: Subjective Rosas Britton is a 24 year old female. HPI Review of Systems Objective BP 110/60 Wt 91.6 kg (202 lb) LMP 08/08/2024 (Approximate) BMI 33.61 kg/m? Physical Exam [facility] 03-14-2025 History of Presen t illness Narrative Subjective Rosas Britton is a 24 year old female. HPI Review of Systems Objective BP 110/60 Wt 91.6 kg (202 lb) LMP 08/08/2024 (Approximate) BMI 33.61 kg/m Physical Exam documented in this encounter [facility] 03-14-2025 Instructions Corrie Garcia APRN.CNM - 03/14/2025 [...] easy pie crust in the food service worker hospital. Add soaked dates to homemade nut butter for a sweet treat. Add dates to lyssa homemade salad dressing. Add dates during easily with these yummy (paleo friendly) bars made from dates. What Is Red Raspberry [place] Tea? Red raspberry leaf tea comes from [...] , and too. How Much Red Raspberry [place] Tea to Drink? With your doctor or special needs tutor s approval, start with 1 cup of [...] because of uterine cramping. Is Red Raspberry [place] Tea the Same as Raspberry [place] Tea? How About Plain Old Raspberry Tea? Sometimes. You really need to look at the ingredients to be sure. Note that there is no difference between red raspberry leaf and raspberry leaf. [employer] or [employer] Component Raspberry [place] Tea are two good brands. The red [...] of RRLT outlined in this article. The [employer] www.[email or web address].[employer] I named this 'circuit' after my friend Giana Lyman, who shared and discussed it with me when I was working with a client whose labor seemed to be stalled out and no longer progressing... This circuit is useful to help get the baby lined up, ideally, in the "Left Occiput Anterior" (SUMMER) Position, both before labor begins and when some corrections need to be done during labor. Prenatally, this position set can help to rotate a baby. As a natural method of induction, this can help get things going if baby just needed a gentle nudge of position to set things off. To the best of my knowledge, this group of positions will not "hurt" a baby that is already lined up correctly." - Janie Jones Before you Begin..... This [...] in your head. Step Three: Moving and Lunges Lunge, walk stairs facing sideways, 2 at a time, (have a proofreader downstairs of you!), take a walk outside [...] your knee, that closes the pelvis. Giana Lyman: Circuit Creator - www.[email or web address]. com Janie Jones CD, BDT (STACY), LCCE, FACCE: Supporting Content - www.james.[employer] Stevenmegan Carrasco Wan: Photography - [email or web address].[email or web address] Sharon Jeff AUGUSTE/CDT (ELLA): Print and Process Design Engineer - www.[email or web address] Masterminds [employer] www.[employer] SEQUENTIAL SCREENINGS The [facility] offers sequential screenings for women who are [...] It will require an appointment with our fuel storage technician. This is not an ultrasound performed [...] the above symptoms, contact our office at [phone] and ask to speak with a nurse. After hours, you can call doctors registry at [phone] OR call [facility] at [phone] and ask to have the doctor contract loader paged. If you consider this an emergency, dial 9-1-1 or go to your nearest emergency department. NEED HELP? Are you dealing with a violent or abusive relationship? Are you a victim of rape or sexual assult? Call [facility] ([place]) 24 hour Crisis Hotline: 819.444.6033 or 214-532-4444. MANUAL Your Guide to a Healthy manual is now on-line. Visit [email or web address] [email or web address] to download your free copy documented in this encounter [facility] 03-06-2025 Telephone encount er Note Order signed and faxed. Caitlyn Kahn RN [facility] 03-06-2025 Miscellaneous Notes Formattin g of this note might be different from the original. Order signed and faxed. Caitlyn Kahn RN Breast pump order received from [employer]. To CP to sign. Molly Romero RN documented in this encounter [facility] 03-04-2025 Telephone encount er Note Breast pump order received from [employer]. To CP to sign. Molly Romero RN [facility] 02-26-2025 Note HNO ID: [id number] Author: CARL SPICER LPN Service: ? Author Type: LICENSED NURSE Type: Progress Notes Filed: 02/26/2025 12:10 Note Text: Yelenayssa Marin Lengac 24 year old is here for her injection of Rhophylac. Ellyssa L Lengacher Antibody Screen (no units) Date Value 11/14/2024 Negative Ellyssa L Lengacher is RH Negative Rhophylac was given without incident. See immunizations for details of immunizations administered today. Provider Dr. Acevedo was present in office at time of injection Rosas Britton was given her Rhophylac pocket card. Carl Spicer LPN [facility] 02-26-2025 History of Presen t illness Narrative Rosas Britton 24 year old is here for her injection of Rhophylac. Rosas Britton Antibody Screen (no units) Date Value 11/14/2024 Negative Rosas Britton is RH Negative Rhophylac was given without incident. See immunizations for details of immunizations administered today. Provider Dr. Acevedo was present in office at time of injection Rosas Britton was given her Rhophylac pocket card. Carl Spicer LPN documented in this encounter [facility] 02-26-2025 Progress note Formatting of t his note might be different from the original. DM-Pt doing well. Denies vaginal Bleeding, Leaking fluid, or regular Contractions. Pt reports good movement. Co Physical Exam: Gen: female in no apparent distress Abd: soft, Gravid. Non tender to palpation. See flow sheet @ 28 weeks Assessment & Plan Encounter for supervision of normal first in second trimester ([facility]) Orders: URINE OB DIP B/O Rh negative state in antepartum period ([facility]) Rhogam today Orders: RhoD immune globulin 300 mcg injection (RHOPHYLAC) 28 weeks gestation of ([facility]) RTO 2 wks Kick counts Labs today Declines tdap Declines larc- form signed Orders: RhoD immune globulin 300 mcg injection (RHOPHYLAC) Hanh Culver MD [facility] 02-26-2025 Miscellaneous Notes Formattin g of this note might be different from the original. DM-Pt doing well. Denies vaginal Bleeding, Leaking fluid, or regular Contractions. Pt reports good movement. Co Physical Exam: Gen: female in no apparent distress Abd: soft, Gravid. Non tender to palpation. See flow sheet @ 28 weeks Assessment & Plan Encounter for supervision of normal first in second trimester ([facility]) Orders: URINE OB DIP B/O Rh negative state in antepartum period ([facility]) Rhogam today Orders: RhoD immune globulin 300 mcg injection (RHOPHYLAC) 28 weeks gestation of (HCC) RTO 2 wks Kick counts Labs today Declines tdap Declines larc- form signed Orders: RhoD immune globulin 300 mcg injection (RHOPHYLAC) Hanh Culver MD documented in this encounter [facility] 02-26-2025 Instructions Melany Marcos MA - 02/26/2025 8:00 AM EDT SEQUENTIAL SCREENINGS The [facility] offers sequential screenings for women who are [...] It will require an appointment with our fuel storage technician. This is not an ultrasound performed [...] the above symptoms, contact our office at [phone] and ask to speak with a nurse. After hours, you can call doctors registry at [phone] OR call [facility] at [phone] and ask to have the doctor contract loader paged. If you consider this an emergency, dial 6--2 or go to your nearest emergency department. NEED HELP? Are you dealing with a violent or abusive relationship? Are you a victim of rape or sexual assult? Call [facility] ([place]) 24 hour Crisis Hotline: 982.632.7622 or 553-083-0794. MANUAL Your Guide to a Healthy manual is now on-line. Visit [email or web address] to download your free copy documented in this encounter [facility] 02-05-2025 Progress note Formatting of t his note might be different from the original. RR- doing well. No VB/LOF. Taking PNV. F/u in 3-4 weeks or prn for 28 week labs. Rafal Resendiz MD [facility] 02-05-2025 Miscellaneous Notes Formattin g of this note might be different from the original. RR- doing well. No VB/LOF. Taking PNV. F/u in 3-4 weeks or prn for 28 week labs. Rafal Resendiz MD documented in this encounter [facility] 02-05-2025 Instructions Palma Cook MA - 02/05/2025 12:35 PM EDT SEQUENTIAL SCREENINGS The [facility] offers sequential screenings for women who are [...] It will require an appointment with our fuel storage technician. This is not an ultrasound performed [...] the above symptoms, contact our office at [phone] and ask to speak with a nurse. After hours, you can call doctors registry at [phone] OR call [facility] at [phone] and ask to have the doctor contract loader paged. If you consider this an emergency, dial 91-5 or go to your nearest emergency department. NEED HELP? Are you dealing with a violent or abusive relationship? Are you a victim of rape or sexual assult? Call [facility] ([place]) 24 hour Crisis Hotline: 680.120.3817 or 515-915-2021. MANUAL Your Guide to a Healthy manual is now on-line. Visit [email or web address] to download your free copy documented in this encounter [facility] 01-01-2025 Progress note Formatting of t his [...] 4 weeks or prn Rafal Resendiz M.D. [facility] 01-01-2025 Miscellaneous Notes Formattin g of this [...] Rafal Resendiz M.D. documented in this encounter [facility] 12-12-2024 Progress note Formatting of t his [...] supervision of normal first in second trimester ([facility]) Rubella non-immune status, antepartum (HCC) d/w recommendation for booster after deliveryt 17 weeks gestation of (HCC) US in 4 weeks as scheduled d/w her symptomatic measures for mcdaniel cont. PNV nad ASA Rafal Resendiz M.D. [facility] 12-12-2024 Miscellaneous Notes Formattin g of this [...] of normal first in second trimester (HCC) Rubella non-immune status, antepartum (HCC) d/w recommendation for booster after deliveryt 17 weeks gestation of (HCC) US in 4 weeks as scheduled d/w her symptomatic measures for mcdaniel cont. PNV lanre Resendiz M.D. documented in this encounter [facility] 11-14-2024 Progress note Formatting of t his [...] or sooner if needed Corrie Garcia APRN.CNM [facility] 11-14-2024 Miscellaneous Notes Formattin g of this [...] Corrie Garcia APRN.CNM documented in this encounter [facility] 11-14-2024 Instructions Gayla Bee LPN - 11/14/2024 12:59 PM EDT SEQUENTIAL SCREENINGS The [facility] offers sequential screenings for women who are [...] It will require an appointment with our fuel storage technician. This is not an ultrasound performed [...] the above symptoms, contact our office at [phone] and ask to speak with a nurse. After hours, you can call doctors registry at [phone] OR call [facility] at [phone] and ask to have the doctor contract loader paged. If you consider this an emergency, dial 6-4-1 or go to your nearest emergency department. NEED HELP? Are you dealing with a violent or abusive relationship? Are you a victim of rape or sexual assult? Call [facility] ([place]) 24 hour Crisis Hotline: 690.811.2400 or 597-395-9943. MANUAL Your Guide to a Healthy manual is now on-line. Visit [email or web address] to download your free copy documented in this encounter [facility] 10-04-2024 Instructions Jan Leavitt MA - 10/04/2024 8:37 AM EDT Please select the following link to access the [facility] Your Guide to a Healthy . [email or web address] documented in this encounter [facility] 10-02-2024 Note HNO ID: [id number] Author: CORRIE GARCIA APRN.CNM Service: ? Author Type: Operations Support Specialist Type: Progress Notes Filed: 10/04/2024 09:50 [...] pre-existing diabetes: No No results found for: "ABORHD" BMI 28.62 kg/(m2) Last Pap: History of [...] SKIN: Negative for: (more content not included)... [facility] 10-02-2024 History of Presen t illness Narrative [...] pre-existing diabetes: No No results found for: "ABORHD" BMI 28.62 kg/(m^2) Last Pap: History of [...] discussed with the Patient or Patient's Authorized Crushing Foreman. As applicable, any other physician, advance practice provider, medical student, or other health professional student that will be observing or involved in the sensitive examination for educational or training purposes was discussed with the Patient or Authorized Crushing Foreman. The Patient or Authorized Crushing Foreman has agreed to proceed with the sensitive examination. (Sensitive examination includes inspection and/or palpation of the breasts, pelvis, prostate and anorectal regions). PHYSICAL EXAM: BP 110/64 Ht 5' 5" (1.65m) Wt 172 lb (78.0kg) LMP 08/08/2024 [...] and crown-rump length 7w 2 days SBIRT Rosas Britton was given the 4P's screening tool. Rosas answered "No" to all the questions, the result is determined to be negative. PLAN: 1) Patient oriented to practice. Patient given new OB orientation folder. Discussed nutrition, folic acid supplementation, dietary guidelines, exercise, smoking, alcohol, caffeine, and drug use. Discussed gestational weight gain guidelines. Discussed routine OB labs including STD/HIV. Discussed how to access Your guide to a health and the Health Safety And Environment Manager. Reviewed midwifery and sr. pricing analyst services that are available. 2) Screening: Hemoglobin [...] Follow up in 4 weeks or sooner prn. Corrie Garcia APRN.CNM documented in this encounter [facility] Evaluation note Diagnosis with uncertain dates in first trimester- Primary Screening for cervical cancer Screening for malignant neoplasm of the cervix Screening for human papillomavirus Special screening examination for human papillomavirus (HPV) Encounter for supervision of normal first in first trimester Supervision of normal first Uncomplicated asthma, unspecified asthma severity, unspecified whether persistent 7 weeks gestation of state, incidental [facility] Diagnosis 13 weeks gestation of (HCC)- Primary state, incidental Encounter for supervision of normal first in second trimester ([facility]) Supervision of normal first Encounter for supervision of normal first in first trimester ([facility]) Supervision of normal first [facility] Diagnosis Encounter for screening for malformation using ultrasound ([facility])- Primary Encounter for (NT) nuchal translucency scan ([facility]) Other specified screening 13 weeks gestation of ([facility]) state, incidental [facility] Diagnosis Rubella non-immune status, antepartum ([facility])- Primary Other specified complication, antepartum [facility] Diagnosis Encounter for supervision of normal first in second trimester ([facility])- Primary Supervision of normal first Rubella non-immune status, antepartum (HCC) Other specified complication, antepartum 17 weeks gestation of ([facility]) state, incidental * Assessment & Plan Note - Rafal Resendiz MD - 12/12/2024 10:45 AM EDT Associated Problem(s): Rubella non-immune status, antepartum ([facility]) d/w recommendation for booster after deliveryt documented in this encounter [facility] note* Diagnosis Encounter for supervision of normal first in second trimester ([facility])- Primary Supervision of normal first Rubella non-immune status, antepartum ([facility]) Other specified complication, antepartum 17 weeks gestation of ([facility]) state, incidental Encounter for anatomic survey ([facility]) [Z36.89]- Primary Encounter for anatomic survey with uncertain dates in first trimester ([facility]) documented in this encounter [facility] note* Diagnosis Encounter for supervision of normal first in second trimester ([facility])- Primary Supervision of normal first Rubella non-immune status, antepartum ([facility]) Other specified complication, antepartum 17 weeks gestation of ([facility]) state, incidental Encounter for supervision of normal first in second trimester ([facility])- Primary Supervision of normal first 20 weeks gestation of ([facility]) state, incidental documented in this encounter [facility] note* Diagnosis Encounter for supervision of normal first in second trimester ([facility])- Primary Supervision of normal first Rubella non-immune status, antepartum ([facility]) Other specified complication, antepartum 17 weeks gestation of ([facility]) state, incidental Encounter for supervision of normal first in second trimester ([facility])- Primary Supervision of normal first 25 weeks gestation of ([facility]) state, incidental Encounter for supervision of normal first in first trimester ([facility]) Supervision of normal first documented in this encounter [facility] note* Diagnosis Encounter for supervision of normal first in second trimester ([facility])- Primary Supervision of normal first Rubella non-immune status, antepartum ([facility]) Other specified complication, antepartum 17 weeks gestation of ([facility]) state, incidental Encounter for supervision of normal first in second trimester ([facility])- Primary Supervision of normal first Rh negative state in antepartum period ([facility]) Rhesus isoimmunization affecting management of mother, antepartum condition 28 weeks gestation of ([facility]) state, incidental Encounter for supervision of normal first in first trimester ([facility]) Supervision of normal first [facility] Diagnosis Encounter for supervision of normal first in second trimester ([facility])- Primary Supervision of normal first Rubella non-immune status, antepartum ([facility]) Other specified complication, antepartum 17 weeks gestation of ([facility]) state, incidental Encounter for supervision of normal first in second trimester ([facility])- Primary Supervision of normal first 30 weeks gestation of ([facility]) state, incidental Rh negative state in antepartum period ([facility]) Rhesus isoimmunization affecting management of mother, antepartum condition Rubella non-immune status, antepartum ([facility]) Other specified complication, antepartum documented in this encounter [facility] note* Diagnosis Encounter for supervision of normal first in second trimester ([facility])- Primary Supervision of normal first Rubella non-immune status, antepartum ([facility]) Other specified complication, antepartum 17 weeks gestation of ([facility]) state, incidental Encounter for supervision of normal first in second trimester ([facility])- Primary Supervision of normal first 32 weeks gestation of ([facility]) state, incidental Rh negative state in antepartum period ([facility]) Rhesus isoimmunization affecting management of mother, antepartum condition documented in this encounter [facility] Summary Purpose Family History No Family History [...] or prosecute any alcohol or drug abuse patient.[facility] the event this information is protected by the Federal Confidentiality of Alcohol and Drug Abuse Patient Records regulations: The Federal rules restrict any use of the information to criminally investigate or prosecute any alcohol or drug abuse patient.[facility] the event this information is protected by the Federal Confidentiality of Alcohol and Drug Abuse Patient Records regulations: The Federal rules restrict any use of the information to criminally investigate or prosecute any alcohol or drug abuse patient.[facility] the event this information is protected by the Federal Confidentiality of Alcohol and Drug Abuse Patient Records regulations: The Federal rules restrict any use of the information to criminally investigate or prosecute any alcohol or drug abuse patient.[facility] the event this information is protected by the Federal Confidentiality of Alcohol and Drug Abuse Patient Records regulations: The Federal rules restrict any use of the information to criminally investigate or prosecute any alcohol or drug abuse patient.[facility] the event this information is protected by the Federal Confidentiality of Alcohol and Drug Abuse Patient Records regulations: The Federal rules restrict any use of the information to criminally investigate or prosecute any alcohol or drug abuse patient.[facility] the event this information is protected by the Federal Confidentiality of Alcohol and Drug Abuse Patient Records regulations: The Federal rules restrict any use of the information to criminally investigate or prosecute any alcohol or drug abuse patient.[facility] the event this information is protected by the Federal Confidentiality of Alcohol and Drug Abuse Patient Records regulations: The Federal rules restrict any use of the information to criminally investigate or prosecute any alcohol or drug abuse patient.[facility] the event this information is protected by the Federal Confidentiality of Alcohol and Drug Abuse Patient Records regulations: The Federal rules restrict any use of the information to criminally investigate or prosecute any alcohol or drug abuse patient.[facility] the event this information is protected by the Federal Confidentiality of Alcohol and Drug Abuse Patient Records regulations: The Federal rules restrict any use of the information to criminally investigate or prosecute any alcohol or drug abuse patient.[facility] the event this information is protected by the Federal Confidentiality of Alcohol and Drug Abuse Patient Records regulations: The Federal rules restrict any use of the information to criminally investigate or prosecute any alcohol or drug abuse patient.[facility] the event this information is protected by the Federal Confidentiality of Alcohol and Drug Abuse Patient Records regulations: The Federal rules restrict any use of the information to criminally investigate or prosecute any alcohol or drug abuse patient.[facility] the event this information is protected by the Federal Confidentiality of Alcohol and Drug Abuse Patient Records regulations: The Federal rules restrict any use of the information to criminally investigate or prosecute any alcohol or drug abuse patient.[facility] Reason for Visit (unrecogniz ed section and content) Reason Comments Initial OB Visit Reason Onset Date Comments Care 11/14/2024 Reason Comments US Specialty Diagnoses / Procedures Referred By Hailee fagan Referred To Contact [facility] Diagnoses with uncertain dates in first trimester (HCC) Procedures OBSTETRIC ULTRASOUND WHI US PREG UTERUS AFTER 1ST TRIMEST GESTATION Corrie Garcia APRN.[facility] [address] [place] [address] Phone: tel: fax: [facility] [address] [place] [address] Referral ID Status Reason Start Date Expiration Date V isits Requested Visits Authorized [id number] Closed Auto-Generate d Referral 10/04/2024 10/04/2025 1 1 Reason Comments Care Referral ID Status Reason Start Date Expiration Date V isits Requested Visits Authorized [id number] Closed Auto-Generate d Referral 10/04/2024 10/04/2025 1 1 Reason Onset Date Comments Care 02/05/2025 Reason Onset Date Comments Care 02/26/2025 Reason Comments Breast Pump Reason Onset Date Comments Care 03/14/2025 Reason Onset Date Comments Care 03/29/2025 INFORMATION SOURCE (unrecogn ized section and content) DATE CREATED AUTHOR 05/20/2025 [facility] DATE CREATED AUTHOR AUTHOR'S ORGANIZ ATION 05/27/2025 [facility] FOR RECORDS PERTAINING TO PATIENTS WHO [...] BE BASED ON THE PRIMARY CLINICAL RECORDS. [employer] provides no warranty or guarantee of the accuracy or completeness of information in this document.
--- OUTSIDE RECORDS SUMMARY | 2025-05-27 04:45 | XMS RPT_ITS | CCD ---
Author Organization [facility] Care Team Providers Care General Manager Farm Name Role Phone Unavailable Primary Care Provider Unavailabl e VIOLETTS, CORRIE Attending Unavailable PLOTTS, CORRIE Attending Unavailable BOUCHRA PARRA Attending Unavailable PLOTTS, CORRIE Attending Unavailable PLOTTS, CORRIE Attending Unavailable PLOTTS, CORRIE Referring Unavailable PLOTTS, CORRIE Referring Unavailable JUAN DANIEL, RFAAL Funes Attending Unavailable PLOTTS, CORRIE Referring Unavailable [...] antepartum (HCC); Translations: [Rubella non-immune status, antepartum ([facility])] Onset: 11-15-2024 Past or Other Problems Problem [...] of ; Translations: [17 weeks gestation of ([facility])] Onset: 12-12-2024 Episodic Residual codes; unclassified (1 source) 13 weeks gestation of ; Translations: [13 weeks gestation of ([facility])] Onset: 11-14-2024 Episodic Results Test Name Value Interpretation Reference Range Facil [facility] ROUTINE, GROUP B ST REPTOCOCCUS BY PCRon 04-22-2025 ROUTINE, GROUP B STREPTOCOCCUS BY PCR Not detected Normal [facility] Comment on above: Performed By: #### T SPN #### [facility]LOOD [facility] [id number] [address] [place] [address] [place] Matthew 03-04-2025 AGUSTIN Telephone (OBGYWM) ANALISAROSAS BARON ([id number]) 4 F Date Time Provider Department 03/04/25 CORRIE GARCIA During your visit today, we recorded the following information about you: Molly Romero RN 03/04/2025 9:11 AM Signed Breast pump order received from [facility]. To CP to sign. MARIA LUZ Agudelo [...] Status:Closed by CAITLYN KAHN on 03/06/25 Normal [facility] CBC W Auto Differential pane l (Bld)on 02-26-2025 Basophils (Bld) [#/Vol] 0.03 10*3/uL Normal <0.11 [facility] Comment on above: Order Comment: Speci men Type: BLOOD SPECIMEN Ordering Facility: [facility] Address: [address] [place], [place] [address] Performed By: #### T SPN #### CC MAIN BLOOD BANK CLIA [id number] [address] [place] [address] [place] Basophils/100 WBC (Bld) 0.3 % Normal [facility] Comment on above: Order Comment: Speci men Type: BLOOD SPECIMEN Ordering Facility: [facility] Address: [address] [place] [address] Performed By: #### T SPN #### [facility] MAIN BLOOD BANK CLIA [id number] [address] [place] [address] [place] Differential cell count method Nom (Bld) Auto Normal [facility] Comment on above: Order Comment: Speci men Type: BLOOD SPECIMEN Ordering Facility: [facility] Address: [address] [place] [address] Performed By: #### T SPN #### [facility] MAIN BLOOD BANK CLIA [id number] [address] [place] [address] [place] Eosinophils (Bld) [#/Vol] 0.09 10*3/uL Normal <0.46 [facility] Comment on above: Order Comment: Speci men Type: BLOOD SPECIMEN Ordering Facility: [facility] Address: [address] [place] [address] Performed By: #### T SPN #### [facility] MAIN BLOOD BANK CLIA [id number] [address] [place] [address] [place] Eosinophils/100 WBC (Bld) 1.0 % Normal [facility] Comment on above: Order Comment: Speci men Type: BLOOD SPECIMEN Ordering Facility: [facility] Address: [address] [place] [address] Performed By: #### T SPN #### [facility] MAIN BLOOD BANK CLIA [id number] [address] [place] [address] [place] Erythrocyte distribution width (RBC) [Ratio] 12.1 % Normal 11.5-15.0 [facility] Comment on above: Order Comment: Speci men Type: BLOOD SPECIMEN Ordering Facility: [facility] Address: [address], [place] [address] Performed By: #### T SPN #### [facility] MAIN BLOOD BANK CLIA [id number] [address] [place] [address] [place] Hematocrit (Bld) [Volume fraction] 31.6 % Low 36.0-46.0 [facility] Comment on above: Order Comment: Speci men Type: BLOOD SPECIMEN Ordering Facility: [facility] Address: [address] [place] [address] Performed By: #### T SPN #### [facility] MAIN BLOOD BANK CLIA [id number] [address] [place] [address] [place] Hemoglobin (Bld) [Mass/Vol] 11.2 g/dL Low 11.5-15.5 [facility] Comment on above: Order Comment: Speci men Type: BLOOD SPECIMEN Ordering Facility: [facility] Address: [address] [place] [address] Performed By: #### T SPN #### [facility] MAIN BLOOD BANK CLIA [id number] [address] [place] [address] [place] Immature granulocytes (Bld) [#/Vol] 0.04 10*3/uL Normal <0.10 [facility] Comment on above: Order Comment: Speci men Type: BLOOD SPECIMEN Ordering Facility: [facility] Address: [address] [place] [address] Performed By: #### T SPN #### [facility] MAIN BLOOD BANK CLIA [id number] [address] [place] [address] [place] Immature granulocytes/100 WBC (Bld) 0.5 % Normal [facility] Comment on above: Order Comment: Speci men Type: BLOOD SPECIMEN Ordering Facility: [facility] Address: [address] [place] [address] Performed By: #### T SPN #### [facility] MAIN BLOOD BANK CLIA [id number] [address] [place] [address] [place] Lymphocytes (Bld) [#/Vol] 1.77 10*3/uL Normal 1.00-4.00 [facility] Comment on above: Order Comment: Speci men Type: BLOOD SPECIMEN Ordering Facility: [facility] Address: [address] [place] [address] Performed By: #### T SPN #### [facility] MAIN BLOOD BANK CLIA [id number] [address] [place] [address] [place] Lymphocytes/100 WBC (Bld) 20.5 % Normal [facility] Comment on above: Order Comment: Speci men Type: BLOOD SPECIMEN Ordering Facility: [facility] Address: [address] [place] [address] Performed By: #### T SPN #### [facility] MAIN BLOOD BANK CLIA [id number] [address] [place] [address] [place] MCH (RBC) [Entitic mass] 30.2 pg Normal 26.0-34.0 [facility] Comment on above: Order Comment: Speci men Type: BLOOD SPECIMEN Ordering Facility: [facility] Address: [address] [place] [address] Performed By: #### T SPN #### [facility] MAIN BLOOD BANK CLIA [id number] [address] [place] [address] [place] MCHC (RBC) [Mass/Vol] 35.4 g/dL Normal 30.5-36.0 [facility] Comment on above: Order Comment: Speci men Type: BLOOD SPECIMEN Ordering Facility: [facility] Address: [address] [place] [address] Performed By: #### T SPN #### [facility] MAIN BLOOD BANK CLIA [id number] [address] [place] [address] [place] MCV (RBC) [Entitic vol] 85.2 fL Normal 80.0-100.0 [facility] Comment on above: Order Comment: Speci men Type: BLOOD SPECIMEN Ordering Facility: [facility] Address: [address] [place] [address] Performed By: #### T SPN #### CC MAIN BLOOD BANK CLIA [id number] [address] [place] [address] [place] Monocytes (Bld) [#/Vol] 0.47 10*3/uL Normal <0.87 [facility] Comment on above: Order Comment: Speci men Type: BLOOD SPECIMEN Ordering Facility: [facility] Address: [address] [place] [address] Performed By: #### T SPN #### [facility] MAIN BLOOD BANK CLIA [id number] [address] [place] [address] [place] Monocytes/100 WBC (Bld) 5.4 % Normal [facility] Comment on above: Order Comment: Speci men Type: BLOOD SPECIMEN Ordering Facility: [facility] Address: [address] [place] [address] Performed By: #### T SPN #### CC MAIN BLOOD BANK CLIA [id number] [address] [place] [address] [place] Neutrophils (Bld) [#/Vol] 6.24 10*3/uL Normal 1.45-7.50 [facility] Comment on above: Order Comment: Speci men Type: BLOOD SPECIMEN Ordering Facility: [facility] Address: [address] [place] [address] Performed By: #### T SPN #### CC MAIN BLOOD BANK CLIA [id number] [address] [place] [address] [place] Neutrophils/100 WBC (Bld) 72.3 % Normal [facility] Comment on above: Order Comment: Speci men Type: BLOOD SPECIMEN Ordering Facility: [facility] Address: [address] [place] [address] Performed By: #### T SPN #### CC MAIN BLOOD BANK CLIA [id number] [address] [place] [address] [place] Nucleated RBC (Bld) [#/Vol] 10*3/uL Normal <0.01 [facility] Comment on above: Order Comment: Speci men Type: BLOOD SPECIMEN Ordering Facility: [facility] Address: [address] [place] [address] Performed By: #### T SPN #### CC MAIN BLOOD BANK CLIA [id number] [address] [place] [address] [place] Nucleated RBC/100 WBC (Bld) [Ratio] 0.0 /100 WBC Normal [facility] Comment on above: Order Comment: Speci men Type: BLOOD SPECIMEN Ordering Facility: [facility] Address: [address] [place] [address] Performed By: #### T SPN #### CC MAIN BLOOD BANK CLIA [id number] [address] [place] [address] [place] Platelet mean volume (Bld) [Entitic vol] 8.6 fL Low 9.0-12.7 [facility] Comment on above: Order Comment: Speci men Type: BLOOD SPECIMEN Ordering Facility: [facility] Address: [address] [place] [address] Performed By: #### T SPN #### CC MAIN BLOOD BANK CLIA [id number] [address] [place] [address] [place] Platelets (Bld) [#/Vol] 170 10*3/uL Normal 150-400 [facility] Comment on above: Order Comment: Speci men Type: BLOOD SPECIMEN Ordering Facility: [facility] Address: [address] [place] [address] Performed By: #### T SPN #### CC MAIN BLOOD BANK CLIA [id number] [address] [place] [address] [place] RBC (Bld) [#/Vol] 3.71 10*6/uL Low 3.90-5.20 [facility] Comment on above: Order Comment: Speci men Type: BLOOD SPECIMEN Ordering Facility: [facility] Address: [address] [place] [address] Performed By: #### T SPN #### CC MAIN BLOOD BANK CLIA [id number] [address] [place] [address] [place] WBC (Bld) [#/Vol] 8.64 10*3/uL Normal 3.70-11.00 [facility] Comment on above: Order Comment: Speci men Type: BLOOD SPECIMEN Ordering Facility: [facility] Address: [address] [place] [address] Performed By: #### T SPN #### CC MAIN BLOOD BANK CLIA [id number] [address] [place] [address] [place] GESTATIONAL GLUCOSE SCREEN, 1-HOUR, 50 GRAM, NON-FASTINGon 02-26-2025 Glucose [Mass/Vol] 108 mg/dL Normal 74-134 [facility] Comment on above: Order Comment: Speci men Type: BLOOD SPECIMEN Ordering Facility: [facility] Address: [address] [place] [address] Result Comment: [facility] Congress of Obstetricians and Gynecologists (Jose/Linda) guidelines state a gestational diabetes mellitus positive screen is made, in women not previously diagnosed with overt diabetes, when the 1 hr plasma glucose level is equal to or above 140 mg/dL. The [facility] Office Equipment Technician and [facility] [place] recommends a 135 mg/dL cutoff. Performed By: #### T SPN #### CC MAIN BLOOD BANK CLIA [id number] [address] [place] [address] [place] Reagin and Treponema pallidu m IgG and IgM [Interp]on 02-26-2025 T. pallidum IgG+IgM IA Ql (S) Non-Reactive Normal Nonreactive [facility] Comment on above: Order Comment: Speci men Type: BLOOD SPECIMEN Ordering Facility: [facility] Address: [address] [place] [address] Performed By: #### T SPN #### CC MAIN BLOOD BANK CLIA [id number] [address] [place] [address] [place] Reagin+T pallidum IgG+IgM Se rPl-Impon 02-26-2025 Reagin and Treponema pallidum IgG and IgM [Interp] Cannot exclude recent Treponemal infection if specimen collected within 7-10 days after appearance of suspect lesions or 2-3 weeks after an exposure. Clinical correlation is required. Normal [facility] Comment on above: Order Comment: Speci men Type: BLOOD SPECIMEN Ordering Facility: [facility] Address: [address] [place] [address] Performed By: #### T SPN #### CC MAIN BLOOD BANK CLIA [id number] [address] [place] [address] TYPE + SCREEN PRENATALon ABO A Normal [facility] Comment on above: Order Comment: Speci men Type: BLOOD SPECIMEN Ordering Facility: [facility] Address: [address] [place] [address] Performed By: #### T SPN #### CC MAIN BLOOD BANK CLIA [id number] [address] [place] [address] [place] Rh Nom (Bld) Negative Normal [facility] Comment on above: Order Comment: Speci men Type: BLOOD SPECIMEN Ordering Facility: [facility] Address: [address] [place] [address] Performed By: #### T SPN #### CC MAIN BLOOD BANK CLIA [id number] [address] [place] [address] [place] TYPE AND SCREEN EXPIRATION 03/01/2025 23:59 Normal [facility] Comment on above: Order Comment: Speci men Type: BLOOD SPECIMEN Ordering Facility: [facility] Address: [address] [place] [address] Performed By: #### T SPN #### CC MAIN BLOOD BANK CLIA [id number] [address] [place] [address] [place] Examination level ultrasound [...] 13 oz EFW by: [employer] (HC-AC-FL) [employer] T[employer] 5.8 mm CM 5.2 mm 56% Nicolaides [...] normal LVOT view: normal 3-vessel view: normal 5-rkgbts-psyygoq view: normal Heart / Thorax Situs: situs [...] Read By: Rhonda Rashid M.D. MATERNAL MEDICINE [facility] Radiology Study observation (narrative) [facility] CBC W Auto Differential pane l (Bld)on 11-14-2024 Basophils (Bld) [#/Vol] 0.04 10*3/uL Normal <0.11 [facility] Comment on above: Order Comment: Speci men Type: BLOOD SPECIMEN Ordering Facility: [facility] Address: [address] [place] [address] Performed By: #### T SPN #### CC MAIN BLOOD BANK CLIA [id number] [address] [place] [address] [place] Basophils/100 WBC (Bld) 0.5 % Normal [facility] Comment on above: Order Comment: Speci men Type: BLOOD SPECIMEN Ordering Facility: [facility] Address: [address] [place] [address] Performed By: #### T SPN #### CC MAIN BLOOD BANK CLIA [id number] [address] [place] [address] [place] Differential cell count method Nom (Bld) Auto Normal [facility] Comment on above: Order Comment: Speci men Type: BLOOD SPECIMEN Ordering Facility: [facility] Address: [address] [place] [address] Performed By: #### T SPN #### CC MAIN BLOOD BANK CLIA [id number] [address] [place] [address] [place] Eosinophils (Bld) [#/Vol] 0.10 10*3/uL Normal <0.46 [facility] Comment on above: Order Comment: Speci men Type: BLOOD SPECIMEN Ordering Facility: [facility] Address: [address] [place] [address] Performed By: #### T SPN #### CC MAIN BLOOD BANK CLIA [id number] [address] [place] [address] [place] Eosinophils/100 WBC (Bld) 1.1 % Normal [facility] Comment on above: Order Comment: Speci men Type: BLOOD SPECIMEN Ordering Facility: [facility] Address: [address] [place] [address] Performed By: #### T SPN #### CC MAIN BLOOD BANK CLIA [id number] [address] [place] [address] [place] Erythrocyte distribution width (RBC) [Ratio] 11.9 % Normal 11.5-15.0 [facility] Comment on above: Order Comment: Speci men Type: BLOOD SPECIMEN Ordering Facility: [facility] Address: [address] [place] [address] Performed By: #### T SPN #### CC MAIN BLOOD BANK CLIA [id number] [address] [place] [address] [place] Hematocrit (Bld) [Volume fraction] 36.2 % Normal 36.0-46.0 [facility] Comment on above: Order Comment: Speci men Type: BLOOD SPECIMEN Ordering Facility: [facility] Address: [address] [place] [address] Performed By: #### T SPN #### CC MAIN BLOOD BANK CLIA [id number] [address] [place] [address] [place] Hemoglobin (Bld) [Mass/Vol] 12.9 g/dL Normal 11.5-15.5 [facility] Comment on above: Order Comment: Speci men Type: BLOOD SPECIMEN Ordering Facility: [facility] Address: [address] [place] [address] Performed By: #### T SPN #### CC MAIN BLOOD BANK CLIA [id number] [address] [place] [address] [place] Immature granulocytes (Bld) [#/Vol] 0.03 10*3/uL Normal <0.10 [facility] Comment on above: Order Comment: Speci men Type: BLOOD SPECIMEN Ordering Facility: [facility] Address: [address] [place] [address] Performed By: #### T SPN #### CC MAIN BLOOD BANK CLIA [id number] [address] [place] [address] [place] Immature granulocytes/100 WBC (Bld) 0.3 % Normal [facility] Comment on above: Order Comment: Speci men Type: BLOOD SPECIMEN Ordering Facility: [facility] Address: [address] [place] [address] Performed By: #### T SPN #### CC MAIN BLOOD BANK CLIA [id number] [address] [place] [address] [place] Lymphocytes (Bld) [#/Vol] 1.94 10*3/uL Normal 1.00-4.00 [facility] Comment on above: Order Comment: Speci men Type: BLOOD SPECIMEN Ordering Facility: [facility] Address: [address] [place] [address] Performed By: #### T SPN #### CC MAIN BLOOD BANK CLIA [id number] [address] [place] [address] [place] Lymphocytes/100 WBC (Bld) 22.1 % Normal [facility] Comment on above: Order Comment: Speci men Type: BLOOD SPECIMEN Ordering Facility: [facility] Address: [address] [place] [address] Performed By: #### T SPN #### CC MAIN BLOOD BANK CLIA [id number] [address] [place] [address] [place] MCH (RBC) [Entitic mass] 28.9 pg Normal 26.0-34.0 [facility] Comment on above: Order Comment: Speci men Type: BLOOD SPECIMEN Ordering Facility: [facility] Address: [address] [place] [address] Performed By: #### T SPN #### CC MAIN BLOOD BANK CLIA [id number] [address] [place] [address] [place] MCHC (RBC) [Mass/Vol] 35.6 g/dL Normal 30.5-36.0 [facility] Comment on above: Order Comment: Speci men Type: BLOOD SPECIMEN Ordering Facility: [facility] Address: [address] [place] [address] Performed By: #### T SPN #### CC MAIN BLOOD BANK CLIA [id number] [address] [place] [address] [place] MCV (RBC) [Entitic vol] 81.0 fL Normal 80.0-100.0 [facility] Comment on above: Order Comment: Speci men Type: BLOOD SPECIMEN Ordering Facility: [facility] Address: [address] [place] [address] Performed By: #### T SPN #### CC MAIN BLOOD BANK CLIA [id number] [address] [place] [address] [place] Monocytes (Bld) [#/Vol] 0.53 10*3/uL Normal <0.87 [facility] Comment on above: Order Comment: Speci men Type: BLOOD SPECIMEN Ordering Facility: [facility] Address: [address] [place] [address] Performed By: #### T SPN #### CC MAIN BLOOD BANK CLIA [id number] [address] [place] [address] [place] Monocytes/100 WBC (Bld) 6.0 % Normal [facility] Comment on above: Order Comment: Speci men Type: BLOOD SPECIMEN Ordering Facility: [facility] Address: [address] [place] [address] Performed By: #### T SPN #### [facility] MAIN BLOOD BANK CLIA [id number] [address] [place] [address] [place] Neutrophils (Bld) [#/Vol] 6.14 10*3/uL Normal 1.45-7.50 [facility] Comment on above: Order Comment: Speci men Type: BLOOD SPECIMEN Ordering Facility: [facility] Address: [address] [place] [address] Performed By: #### T SPN #### [facility] MAIN BLOOD BANK CLIA [id number] [address] [place] [address] [place] Neutrophils/100 WBC (Bld) 70.0 % Normal [facility] Comment on above: Order Comment: Speci men Type: BLOOD SPECIMEN Ordering Facility: [facility] Address: [address] [place] [address] Performed By: #### T SPN #### [facility] MAIN BLOOD BANK CLIA [id number] [address] [place] [address] [place] Nucleated RBC (Bld) [#/Vol] 10*3/uL Normal <0.01 [facility] Comment on above: Order Comment: Speci men Type: BLOOD SPECIMEN Ordering Facility: [facility] Address: [address] [place] [address] Performed By: #### T SPN #### [facility] MAIN BLOOD BANK CLIA [id number] [address] [place] [address] [place] Nucleated RBC/100 WBC (Bld) [Ratio] 0.0 /100 WBC Normal [facility] Comment on above: Order Comment: Speci men Type: BLOOD SPECIMEN Ordering Facility: [facility] Address: [address] [place] [address] Performed By: #### T SPN #### [facility] MAIN [facility]LOOD BANK CLIA [id number] [address] [place] [address] [place] Platelet mean volume (Bld) [Entitic vol] 9.3 fL Normal 9.0-12.7 [facility] Comment on above: Order Comment: Speci men Type: BLOOD SPECIMEN Ordering Facility: [facility] Address: [address] [place] [address] Performed By: #### T SPN #### [facility] MAIN BLOOD BANK CLIA [id number] [address] [place] [address] [place] Platelets (Bld) [#/Vol] 176 10*3/uL Normal 150-400 [facility] Comment on above: Order Comment: Speci men Type: BLOOD SPECIMEN Ordering Facility: [facility] Address: [address] [place] [address] Performed By: #### T SPN #### [facility] MAIN BLOOD BANK CLIA [id number] [address] [place] [address] [place] RBC (Bld) [#/Vol] 4.47 10*6/uL Normal 3.90-5.20 [facility] Comment on above: Order Comment: Speci men Type: BLOOD SPECIMEN Ordering Facility: [facility] Address: [address] [place] [address] Performed By: #### T SPN #### [facility] MAIN BLOOD BANK CLIA [id number] [address] [place] [address] [place] WBC (Bld) [#/Vol] 8.78 10*3/uL Normal 3.70-11.00 [facility] Comment on above: Order Comment: Speci men Type: BLOOD SPECIMEN Ordering Facility: [facility] Address: [address] [place] [address] Performed By: #### T SPN #### [facility]IN [facility]LOOD B[facility] CLIA [id number] [address] [place] [address] [place] Examination level ultrasound on 11-14-2024 Indication First trimester anatomic survey Impression The patient is referred for a first trimester anatomy scan including nuchal translucency measurement as clinically indicated. - Single, live, intrauterine . - Talpa rump length measurement is consistent with the [...] view: visualized 4-chamber view with color: visualized 9-dtesyf-qkywksm view: normal Abdominal cord insertion: normal Stomach: [...] Read By: Cece Brown M.D. MATERNAL MEDICINE [facility] Radiology Study observation (narrative) [facility] HBV surface Ag Ser Qlon 10-18 HBV surface Ag Ql (S) Negative Normal Negative [facility] Comment on above: Order Comment: Speci men Type: BLOOD SPECIMEN Ordering Facility: [facility] Address: [address] [place] [address] Performed By: #### T SPN #### [facility]IN [facility]LOOD BANK CLIA [id number] [address] [place] [address] [place] [address] [place] HCV Ab Ser Qlon 11-14-2024 HCV Ab Ql (S) Negative Normal Negative [facility] Comment on above: Order Comment: Speci men Type: BLOOD SPECIMEN Ordering Facility: [facility] Address: [address] [place] [address] Result Comment: The result suggests no evidence of infection with Hepatitis C virus. Should recent infection be suspected, repeat testing may be considered 4-6 weeks after this draw. Performed By: #### T SPN #### [facility]IN [facility]LOOD BANK CLIA [id number] [address] [place] [address] [place] HIV 1+2 Ab IA Qlon HIV 1 and 2 Ab IA.rapid Nom (S/P/Bld) Normal [facility] Comment on above: Order Comment: Speci men Type: BLOOD SPECIMEN Ordering Facility: [facility] Address: [address] [place] [address] Result Comment: Test not indicated. Performed By: #### T SPN #### [facility] CLIA [id number] [address] [place] [address] [place] HIV 1+2 Ab+HIV1 p24 Ag IA Ql Non-Reactive Normal Nonreactive [facility] Comment on above: Order Comment: Speci men Type: BLOOD SPECIMEN Ordering Facility: [facility] Address: [address] [place] [address] Performed By: #### T SPN #### [facility] CLIA [id number] [address] [place] [address] [place] HIV immunoassay testing algorithm interpretation (S/P/Bld) [Interp] Normal [facility] Comment on above: Order Comment: Speci men Type: BLOOD SPECIMEN Ordering Facility: [facility] Address: [address] [place] [address] Result Comment: No e vidence of HIV-1 or HIV-2 infection. Should recent infection be suspected, repeat testing may be considered 2-3 weeks after this draw. [place] Rev. Code 3701.243(E): This information has been [...] SPN #### [facility] CLIA [id number] [address] [place] [address] OF [facility] HbA1c (Bld)on 11-14-2024 Average glucose Estimated from glycated hemoglobin (Bld) [Mass/Vol] 82 mg/dL Normal [facility] Comment on above: Order Comment: Speci men Type: BLOOD SPECIMEN Ordering Facility: [facility] Address: [address] [place] [address] Result Comment: eAG: (Estimated average glucose) is a calculated value from HgbA1c and is escrow representative of the average blood glucose level in the last 2-3 month period. Performed By: #### T SPN #### [facility] CLIA [id number] [address] [place] [address] HbA1c (Bld) [Mass fraction] 4.5 % Normal 4.3-5.6 [facility] Comment on above: Order Comment: Speci men Type: BLOOD SPECIMEN Ordering Facility: [facility] Address: [address] [place] [address] Result Comment: [place] Diabetes Association guidelines indicate that patients with HgbA1c in the range 5.7-6.4% are at increased risk for development of diabetes, and intervention by lifestyle modification may be beneficial. HgbA1c greater or equal to 6.5% is considered diagnostic of diabetes. Performed By: #### T SPN #### [facility] CLIA [id number] [address] [place] [address] OF [place] RUBELLA IGG ANTIBODYon 11-14 RUBELLA IGG AB, QUAL Negative Abnormal Positive [facility] Comment on above: Order Comment: Speci men Type: BLOOD SPECIMEN Ordering Facility: [facility] Address: [address] [place] [address] Result Comment: The result suggests no history of Rubella vaccination or exposure to Rubella virus, however, some individuals with past history of Rubella vaccination may test negative using this test as immunity to Rubella virus wanes over time after vaccination. Please correlate with vaccination history if applicable. Performed By: #### T SPN #### [facility] CLIA [id number] [address] [place] [address] [place] Reagin and Treponema pallidu m IgG and IgM [Interp]on 11-14-2024 T. pallidum IgG+IgM IA Ql (S) Non-Reactive Normal Nonreactive [facility] Comment on above: Order Comment: Speci men Type: BLOOD SPECIMEN Ordering Facility: [facility] Address: [address] [place] [address] Performed By: #### T SPN #### [facility] CLIA [id number] [address] [place] [address] [place] Reagin+T pallidum IgG+IgM Se rPl-Impon 11-14-2024 Reagin and Treponema pallidum IgG and IgM [Interp] Cannot exclude recent Treponemal infection if specimen collected within 7-10 days after appearance of suspect lesions or 2-3 weeks after an exposure. Clinical correlation is required. Normal [facility] Comment on above: Order Comment: Speci men Type: BLOOD SPECIMEN Ordering Facility: [facility] Address: [address] [place] [address] Performed By: #### T SPN #### [facility] CLIA [id number] [address] [place] [address] [place] TYPE + SCREEN PRENATALon ABO A Normal [facility] Comment on above: Order Comment: Speci men Type: BLOOD SPECIMEN Ordering Facility: [facility] Address: [address] [place] [address] Performed By: #### T SPN #### [facility] CLIA [id number] [address] [place] [address] [place] Rh Nom (Bld) Negative Normal [facility] Comment on above: Order Comment: Speci men Type: BLOOD SPECIMEN Ordering Facility: [facility] Address: [address] [place] [address] Performed By: #### T SPN #### [facility] CLIA [id number] [address] [place] [address] [place] TYPE AND SCREEN EXPIRATION 11/17/2024 23:59 Normal [facility] Comment on above: Order Comment: Speci men Type: BLOOD SPECIMEN Ordering Facility: [facility] Address: [address] [place] [address] Performed By: #### T SPN #### [facility] CLIA [id number] [address] [place] [address] [place] Bacteria Ur Culton Bacteria identified Cx Nom (U) ORGANISM ID: 1 10,000 -<50,000 CFU/ml Normal urogenital conner Normal [facility] Comment on above: Performed By: #### T SPN #### [facility] CLIA [id number] [address] [place] [address] [place] C. trachomatis+N. gonorrhoea e DNA LETTY+probe Ql (Unsp spec)on 10-04-2024 C. trachomatis rRNA LETTY+probe Ql (Unsp spec) Not detected Normal Not detected [facility] Comment on above: Order Comment: Speci men Type: BLOOD SPECIMEN Ordering Facility: [facility] Address: [address] [place] [address] Performed By: #### T SPN #### [facility] CLIA [id number] [address] [place] [address] [place] N. gonorrhoeae rRNA LETTY+probe Ql (Unsp spec) Not detected Normal Not detected [facility] Comment on above: Order Comment: Speci men Type: BLOOD SPECIMEN Ordering Facility: [facility] Address: [address] [place] [address] Performed By: #### T SPN #### [facility] CLIA [id number] [address] [place] [address] [place] PAP TESTon 10-04-2024 ADEQUACY Normal [facility] Comment on above: Order Comment: Speci men Type: FLUID SPECIMEN Ordering Facility: [facility] Address: [address] [place] [address] Result Comment: Sati sfactory for interpretation. Transformation zone present Performed By: #### L [id number] #### [facility] CLIA [id number] [address] [place] [address] [place] [facility] CLIA [id number] [address] [place] [address] [place] CASE REPORT Normal [facility] Comment on above: Order Comment: Speci men Type: FLUID SPECIMEN Ordering Facility: [facility] Address: [address] [place] [address] Result Comment: Gyne cologic Cytology Report Case: [id number] Authorizing Provider: Corrie Garcia APRN.CNM Collected: 10/04/2024 09:34 AM Ordering Location: OB/Gynecology Received: 10/04/2024 12:21 PM First Screen: Steven Augustin, CT, ASCP Specimen: Pap Test, ThinPrep, Cervix Performed By: #### L [id number] #### [facility] CLIA [id number] [address] [place] [address] [place] [facility] CLIA [id number] [address] [place] [address] [place] CLINICAL HISTORY, CYTOLOGY, DRIVER ENGINEER Routine Exam Normal [facility] Comment on above: Order Comment: Speci men Type: FLUID SPECIMEN Ordering Facility: [facility] Address: [address] [place] [address] Performed By: #### L [id number] #### [facility] CLIA [id number] [address] [place] [address] [place] [facility] CLIA [id number] [address] [place] [address] [place] FINAL PERFORMING LAB Normal [facility] Comment on above: Order Comment: Speci men Type: FLUID SPECIMEN Ordering Facility: [facility] Address: [address] [place] [address] Result Comment: Tech nical component, cattle shipper screening performed at [facility], [address], [place] [id number] CLIA# [id number] Diagnostic interpretation performed at [facility], [address] [place] [id number] CLIA# [id number] Sales Representative Business Courses: Loretta Thakur M.D. Performed By: #### L [id number] #### [facility] CLIA [id number] [address] [place] [address] [place] [facility] CLIA [id number] [address] [place] [address] [place] INTERPRETATION, CYTOLOGY, DRIVER ENGINEER Normal [facility] Comment on above: Order Comment: Speci men Type: FLUID SPECIMEN Ordering Facility: [facility] Address: [address] [place] [address] Result Comment: Nega tive for intraepithelial lesion or malignancy. at 1504 EDT Performed By: #### L [id number] #### [facility] CLIA [id number] [address] [place] [address] [place] [facility] CLIA [id number] [address] [place] [address] [place] LMP 08/08/2024 Normal [facility] Comment on above: Order Comment: Speci men Type: FLUID SPECIMEN Ordering Facility: [facility] Address: [address] [place] [address] Performed By: #### L [id number] #### [facility] CLIA [id number] [address] [place] [address] [place] [facility] CLIA [id number] [address] [place] [address] [place] PAP DISCLAIMER COMMENT The Pap Smear is a screening test for cervical cancer. False negative results occur with all screening tests, emphasizing the need for rescreening at recommended intervals, and clinical correlation. Normal [facility] Comment on above: Order Comment: Speci men Type: FLUID SPECIMEN Ordering Facility: [facility] Address: [address] [place] [address] Performed By: #### L [id number] #### [facility] CLIA [id number] [address] [place] [address] [place] [facility] CLIA [id number] [address] [place] [address] [place] PAP INKING MACHINE TENDER COMMENT This specimen has been analyzed by the ThinPrep Imaging System, an automated imaging and review system, which assists the laboratory in evaluating cells on ThinPrep Pap tests. Following automated imaging, selected skaggs from every slide are reviewed by a cattle shipper. Normal [facility] Comment on above: Order Comment: Speci men Type: FLUID SPECIMEN Ordering Facility: [facility] Address: [address] [place] [address] Performed By: #### L [id number] #### [facility] CLIA [id number] [address] [place] [address] [place] [facility] CLIA [id number] [address] [place] [address] [place] POC RACE ENGINE BUILDER ULTRASOUNDon 10-05-19 25 Indication Viability; confirm cardiac [...] Read By: Corrie Garcia CNM MATERNAL MEDICINE [facility] Radiology Study observation (narrative) [facility] TRICHOMONAS VAGINALIS NAATon 10-04-2024 T. vaginalis DNA LETTY+probe Ql (Unsp spec) Not detected Normal Not detected [facility] Comment on above: Order Comment: Speci men Type: BLOOD SPECIMEN Ordering Facility: [facility] Address: [address] [place] [address] Performed By: #### T SPN #### [facility] CLIA [id number] [address] [place] [address] OF [place] Urgent Care Visit Reporton 0 07-20-2024 Urgent Care Visit Report [facility] [address] [facility], [address] [place] [id number] OFFICE VISIT Date of Service: 07/20/24 MR#: [id number] Acct: [id number] Name: Rosas Britton Rep #: [id number] : 2000 Provider: SHARAD Drake Age/Sex: 23/F Location: [facility] Status: Signed Intake Vital Signs 07/19/23 12:13 07/20/24 16:01 Height 5 ft 4 in BP 110/60 Blood Pressure Location Lt brachial Position Sitting Respiration 16 Pulse 73 Pulse Source NIBP Temp 98.3 F Temp Source Oral Pulse Oximetry (%) 98 Oxygen Delivery Method room air Intake Visit Reasons: HEADACHE, COUGH Chief Complaint: cough, MCDANIEL, ST, congestion Boom Master Required: No Is patient in pain?: No [...] Exam Const General: cooperative and healthy appearing [facility] Head: normal to inspection Ears: hearing grossly [...] Lucero Covid FLUAB PCR Today Medications: New khdrazqlynvteik-TV-cm aifenesin 60-15-400 mg (Capmist DM) do not [...] Grace Signature: Date (if applicable) CC: Normal [facility] Vital Signs Date Time Vital Sign Value Performing Clinician Rhonda willson 03-29-2025 10:59-0400 Body mass index (BMI) [Ratio] 34.78 kg/m2 Corrie Garcia APRN.KAVIN Work Phone: [facility] 03-29-2025 10:59-0400 Body weight 94.8 kg Corrie Garcia APRN.CNM Work Phone: [facility] 03-29-2025 10:59-0400 Diastolic blood pressure 60 mm[Hg] Corrie Garcia APRN.KAVIN Work Phone: [facility] 03-29-2025 10:59-0400 Systolic blood pressure 118 mm[Hg] Corrie Garcia APRN.KAIVN Work Phone: [facility] 03-14-2025 11:02-0400 Body mass index (BMI) [Ratio] 33.61 kg/m2 Corrie Garcia INFORMATICS CONSULTANT.CNM Work Phone: [facility] 03-14-2025 11:02-0400 Body weight 91.63 kg Corrie Garcia INFORMATICS CONSULTANT.CNM Work Phone: [facility] 03-14-2025 11:02-0400 Diastolic blood pressure 60 mm[Hg] Corrie Garcia INFORMATICS CONSULTANT.CNM Work Phone: [facility] 03-14-2025 11:02-0400 Systolic blood pressure 110 mm[Hg] Corrie Garcia INFORMATICS CONSULTANT.CNM Work Phone: [facility] 02-26-2025 08:09-0400 Body mass index (BMI) [Ratio] 33.45 kg/m2 Hanh Acevedo MD Work Phone: [facility] 02-26-2025 08:09-0400 Body weight 91.17 kg Hanh Acevedo MD Work Phone: [facility] 02-26-2025 08:09-0400 Diastolic blood pressure 60 mm[Hg] Hanh Acevedo MD Work Phone: [facility] 02-26-2025 08:09-0400 Systolic blood pressure 110 mm[Hg] Hanh Acevedo MD Work Phone: [facility] 02-05-2025 12:37-0400 Body mass index (BMI) [Ratio] 32.85 kg/m2 Rafal Resendiz MD Work Phone: [facility] 02-05-2025 12:37-0400 Body weight 89.54 kg Rafal Resendiz MD Work Phone: [facility] 02-05-2025 12:37-0400 Diastolic blood pressure 72 mm[Hg] Rafal Resendiz MD Work Phone: [facility] 02-05-2025 12:37-0400 Systolic blood pressure 120 mm[Hg] Rafal Resendiz MD Work Phone: [facility] 01-01-2025 10:05-0400 Body mass index (BMI) [Ratio] 30.62 kg/m2 Rafal Resendiz MD Work Phone: [facility] 01-01-2025 10:05-0400 Body weight 83.46 kg Rafal Resendiz MD Work Phone: [facility] 01-01-2025 10:05-0400 Diastolic blood pressure 60 mm[Hg] Rafal Resendiz MD Work Phone: [facility] 01-01-2025 10:05-0400 Systolic blood pressure 110 mm[Hg] Rafal Resendiz MD Work Phone: [facility] 12-12-2024 10:15-0400 Body mass index (BMI) [Ratio] 29.62 kg/m2 Rafal Resendiz MD Work Phone: [facility] 12-12-2024 10:15-0400 Body weight 80.74 kg Rafal Resendiz MD Work Phone: [facility] 12-12-2024 10:15-0400 Diastolic blood pressure 70 mm[Hg] Rafal Resendiz MD Work Phone: [facility] 12-12-2024 10:15-0400 Systolic blood pressure 114 mm[Hg] Rafal Resendiz MD Work Phone: [facility] 11-14-2024 13:45-0400 Body mass index (BMI) [Ratio] 29.05 kg/m2 Corrie Garcia INFORMATICS CONSULTANT.CNM Work Phone: [facility] 11-14-2024 13:45-0400 Body weight 79.2 kg Corrie Garcia INFORMATICS CONSULTANT.CNM Work Phone: [facility] 11-14-2024 13:45-0400 Diastolic blood pressure 66 mm[Hg] Corrie Garcia INFORMATICS CONSULTANT.CNM Work Phone: [facility] 11-14-2024 13:45-0400 Systolic blood pressure 122 mm[Hg] Corrie Gracia INFORMATICS CONSULTANT.CNM Work Phone: [facility] 10-04-2024 08:40-0400 Body height 165.1 cm Corrie Garcia INFORMATICS CONSULTANT.CNM Work Phone: [facility] 10-04-2024 08:40-0400 Body mass index (BMI) [Ratio] 28.62 kg/m2 Corrie Violetaniyah INFORMATICS CONSULTANT.CNM Work Phone: [facility] 10-04-2024 08:40-0400 Body weight 78.02 kg Corrie Violetaniyah INFORMATICS CONSULTANT.CNM Work Phone: [facility] 10-04-2024 08:40-0400 Diastolic blood pressure 64 mm[Hg] Corrie Violetaniayh INFORMATICS CONSULTANT.CNM Work Phone: [facility] 10-04-2024 08:40-0400 Systolic blood pressure 110 mm[Hg] Corrieyvonne Garcia INFORMATICS CONSULTANT.CNM Work Phone: [facility] Encounters Encounter Date Encounter Type Care Provider Facility Start: 05-26-2025 End: 05-26-2025 ambulatory No Primary Care Physician Facility:[facility] Start: 05-20-2025 End: 05-20-2025 ambulatory [facility] Start: 05-15-2025 End: 05-15-2025 ambulatory [facility] Start: 05-09-2025 End: 05-09-2025 ambulatory BOUCHRA PARRA Facility:[facility] Start: 05-02-2025 End: 05-02-2025 ambulatory [facility] Start: 04-22-2025 End: 04-22-2025 ambulatory CORRIE GARCIA Facility:[facility] Start: 04-10-2025 End: 04-10-2025 ambulatory [facility] Start: 03-29-2025 End: 03-29-2025 Patient encounter procedure Corrie Garcia INFORMATICS CONSULTANT.CNM Work Phone: OB/Gynecology Comment on above: Encounter for superv ision of normal first in second trimester (HCC) (Primary Dx); 32 weeks gestation of (HCC); Rh negative state in antepartum period (HCC) Start: 03-29-2025 End: 03-29-2025 ambulatory [facility] Facility:[facility] Start: 03-26-2025 End: 03-26-2025 ambulatory Corrie Garcia APRN.KAVIN Work Phone: OB/Gynecology Comment on above: Allergy medicine Start: 03-14-2025 End: 03-14-2025 Patient encounter procedure Corrie Garcia APRN.CNM Work Phone: OB/Gynecology Comment on above: Encounter for superv ision of normal first in second trimester (HCC) (Primary Dx); 30 weeks gestation of (HCC); Rh negative state in antepartum period ([facility]); Rubella non-immune status, antepartum ([facility]) Start: 03-14-2025 End: 03-14-2025 ambulatory [facility] Facility:[facility] Start: 03-04-2025 End: 03-06-2025 Telephone encounter [...] Start: 02-26-2025 End: 02-26-2025 ambulatory HANH ACEVEDO Facility:[facility] Start: 02-05-2025 End: 02-05-2025 Patient encounter procedure Rafal Resendiz MD Work Phone: OB/Gynecology Comment on above: Encounter for superv ision of normal first in second trimester (HCC) (Primary Dx); 25 weeks gestation of (HCC); Encounter for supervision of normal first in first trimester (HCC) Start: 02-05-2025 End: 02-05-2025 ambulatory RAFAL RESENDIZ Facility:[facility] Start: 01-01-2025 End: 01-01-2025 Patient encounter procedure [employer] [facility] Comment on above: Encounter for anatomic survey (HCC) [Z36.89] (Primary Dx); with uncertain dates in first trimester (HCC) Encounter for superv ision of normal first in second trimester ([facility]) (Primary Dx); 20 weeks gestation of ([facility]) Start: 01-01-2025 End: 01-01-2025 ambulatory CORRIE GARCIA Facility:[facility] Start: 12-12-2024 End: 12-12-2024 Patient encounter procedure Rafal Resendiz MD Work Phone: OB/Gynecology Comment on above: Encounter for superv ision of normal first in second trimester ([facility]) (Primary Dx); Rubella non-immune status, antepartum ([facility]); 17 weeks gestation of ([facility]) Start: 12-12-2024 End: 12-12-2024 ambulatory RAFAL RESENDIZ Facility:[facility] Start: 11-14-2024 End: 11-14-2024 ambulatory CORRIE GARCIA Facility:[facility] Start: 11-14-2024 End: 11-14-2024 Patient encounter procedure Corrie Garcia INFORMATICS CONSULTANT.CNM Work Phone: OB/Gynecology Comment on above: 13 weeks gestation o f (HCC) (Primary Dx); Encounter for supervision of normal first in second trimester ([facility]); Encounter for supervision of normal first in first trimester ([facility]) Encounter for antena keisha screening for malformation using ultrasound ([facility]) (Primary Dx); Encounter for (NT) nuchal translucency scan ([facility]); 13 weeks gestation of ([facility]) Start: 11-14-2024 End: 11-14-2024 ambulatory CORRIE GARCIA Facility:[facility] Start: 10-04-2024 End: 12-04-2024 Follow-up encounter Corrie Garcia APRN.CNM Work Phone: OB/Gynecology Start: 10-04-2024 End: 10-04-2024 ambulatory CORRIE GARCIA Facility:[facility] Start: 10-04-2024 End: 10-04-2024 Patient encounter [...] Speci men Type: BLOOD SPECIMEN Ordering Facility: [facility] Address: [address] [place] [address] Performed By: #### T SPN #### [facility] CLIA [id number] [address] [place] [address] Start: 01-01-2025 Us preg uterus after 1st trimest / gestation Corrie Garcia APRN.KAVIN Work Phone: Start: 11-14-2024 Antibody screen AMANDA GARCIA Comment on above: Order Comment: Speci men Type: BLOOD SPECIMEN Ordering Facility: [facility] Address: [address] [place] [address] Performed By: #### T SPN #### [facility] CLIA [id number] [address] [place] [address] [place] Start: 11-14-2024 Us preg uterus after 1st trimest /1st gestation Corrie Garcia APRN.KAVIN Work Phone: Start: 10-04-2024 Us uterus limited 1/> fetuses Corrie Garcia APRN.KAVIN Work Phone: Plan of Treatment Date Care Activity Detail Author Start: 2077 RSV Vaccine (1 - 1-d ose 75+ series) RSV Vaccine (1 - 1-dose 75+ series) [facility] Start: 10-05-2027 Screening for malign ant neoplasm of cervix Cervical Cancer Screening [facility] Start: 10-04-2025 GC (Gonorrhea) Screening (18-24) GC (Gonorrhea) Screening (18-24) [facility] Start: 10-04-2025 Screening for Chlamy radha trachomatis Chlamydia Screening () [facility] Start: 04-22-2025 End: 04-22-2025 Patient encounter procedure 04/22/2025 2:30 PM EDT Routine Office Visit OB/Gynecology [address] [place] [address] Corrie Garcia APRN.CN [address] [place] [address] OB [facility] Comment on above: OB Start: 04-10-2025 End: 04-10-2025 Patient encounter procedure 04/10/2025 8:00 AM EDT Routine Office Visit OB/Gynecology [address] [place] [address] Corrie Garcia APRN.CN [address] [place] [address] OB [facility]/Gynecology Comment on above: OB Start: 03-29-2025 End: 03-29-2025 Patient encounter procedure 03/29/2025 11:15 AM EDT Routine Office Visit OB/Gynecology [address] [place] [address] Corrie Garcia APRN.CN [address] [place] [address] OB OB/Gynecology Comment on above: OB Start: 03-26-2025 RSV Vaccine (1 - Ris k 1-dose series) RSV Vaccine (1 - Risk 1-dose series) [facility] Start: 03-18-2025 Influenza vaccination [facility] Start: 03-14-2025 End: 03-14-2025 Patient encounter procedure 03/14/2025 11:15 AM EDT Routine Office Visit OB/Gynecology [address] [place] [address] Corrie Garcia APRN.[facility] [address] [place] [address] OB OB/Gynecology Comment on above: OB Start: 02-26-2025 End: 05-28-2025 ANEMIA REFLEX PANEL ANEMIA REFLEX PANEL Lab Routine 25 weeks gestation of (HCC) Encounter for supervision of normal first in second trimester ([facility]) Expected: 02/26/2025 (Approximate), Expires: 05/28/2025 [facility] Comment on above: Expected: 02/26/2025 (Approximate), Expires: 05/28/2025 Start: 02-26-2025 End: 02-05-2026 GESTATIONAL GLUCOSE SCREEN, 1-HOUR, 50 GRAM, NON-FASTING GESTATIONAL GLUCOSE SCREEN, 1-HOUR, 50 GRAM, NON-FASTING Lab Routine 25 weeks gestation of ([facility]) Encounter for supervision of normal first in second trimester ([facility]) Expected: 02/26/2025 (Approximate), Expires: 02/05/2026 [facility] Work Phone: Comment on above: Expected: 02/26/2025 (Approximate), Expires: 02/05/2026 Start: 02-26-2025 End: 02-05-2026 SYPHILIS TREPONEMAL W/REFLEX SYPHILIS TREPONEMAL W/REFLEX Lab Routine 25 weeks gestation of (HCC) Encounter for supervision of normal first in second trimester ([facility]) Expected: 02/26/2025 (Approximate), Expires: 02/05/2026 [facility] Comment on above: Expected: 02/26/2025 (Approximate), Expires: 02/05/2026 Start: 02-26-2025 End: 05-28-2025 TYPE + SCREEN TYPE + SCREEN Blood Bank Routine 25 weeks gestation of (HCC) Encounter for supervision of normal first in second trimester (HCC) Expected: 02/26/2025 (Approximate), Expires: 05/28/2025 [facility] Comment on above: Expected: 02/26/2025 (Approximate), Expires: 05/28/2025 Start: 02-26-2025 End: 02-26-2025 Patient encounter procedure 02/26/2025 8:10 AM EDT Routine Office Visit OB/Gynecology [address] [place] [address] Hanh Hines MD [address] [place] [address] Glucose/OB OB/Gynecology Comment on above: Glucose/OB Start: 02-26-2025 End: 02-26-2025 ambulatory 02/26/2025 8:00 AM EDT Results Only [facility] Laboratory [address] [place] [address] Glucose lab [facility] Laboratory Comment on above: Glucose lab Start: 01-28-2025 End: 01-28-2025 Patient encounter procedure 01/28/2025 8:45 AM EDT Routine Office Visit OB/Gynecology [address] [place] [address] Steven Loza APRN.[employer] [address] [place] [address] OB OB/Gynecology Comment on above: OB Start: 01-01-2025 End: 01-01-2025 Patient encounter procedure [facility] Comment on above: Anatomy Anatomy/OB Start: 12-12-2024 End: 12-12-2024 Patient encounter procedure 12/12/2024 10:10 AM EDT Routine Office Visit OB/Gynecology [address] [place] [address] Rafal Resendiz MD [address] [place] [address] OB Routine OB/Gynecology Comment on above: OB Routine Start: 11-08-2024 End: 11-08-2024 Patient encounter procedure [facility] Comment on above: Anatomy and АННА Start: 10-04-2024 End: 01-03-2025 ANEMIA REFLEX PANEL ANEMIA REFLEX PANEL Lab Routine with uncertain dates in first trimester Expected: 10/04/2024, Expires: 01/03/2025 [facility] Work Phone: Comment on above: Expected: 10/04/2024 , Expires: 01/03/2025 Start: 10-04-2024 End: 01-03-2025 Hemoglobin A1c in Blood HEMOGLOBIN A1C Lab Routine with uncertain dates in first trimester Expected: 10/04/2024, Expires: 01/03/2025 [facility] Comment on above: Expected: 10/04/2024 , Expires: 01/03/2025 Start: 10-04-2024 End: 01-03-2025 Hepatitis B virus surface Ag [Presence] in Serum HEPATITIS B SURFACE ANTIGEN Lab Routine with uncertain dates in first trimester Expected: 10/04/2024, Expires: 01/03/2025 [facility] Comment on above: Expected: 10/04/2024 , Expires: 01/03/2025 Start: 10-04-2024 End: 01-03-2025 Hepatitis C virus Ab [Presence] in Serum HEPATITIS C ANTIBODY IA WITH CONFIRMATION Lab Routine with uncertain dates in first trimester Expected: 10/04/2024, Expires: 01/03/2025 [facility] Comment on above: Expected: 10/04/2024 , Expires: 01/03/2025 Start: 10-04-2024 End: 01-03-2025 HIV 1+2 Ab [Presence] in Serum or Plasma by Immunoassay HIV 1/2 COMBO WITH REFLEX TO DIFFERENTIATION Lab Routine with uncertain dates in first trimester Expected: 10/04/2024, Expires: 01/03/2025 [facility] Comment on above: Expected: 10/04/2024 , Expires: 01/03/2025 Start: 10-04-2024 End: 10-04-2025 OBSTETRIC ULTRASOUND WHI OBSTETRIC ULTRASOUND WHI Anc Imaging Routine with uncertain dates in first trimester Expected: 10/04/2024, Expires: 10/04/2025 [facility] Comment on above: Expected: 10/04/2024 , Expires: 10/04/2025 Start: 10-04-2024 End: 01-03-2025 RUBELLA IGG ANTIBODY RUBELLA IGG ANTIBODY Lab Routine with uncertain dates in first trimester Expected: 10/04/2024, Expires: 01/03/2025 [facility] Comment on above: Expected: 10/04/2024 , Expires: 01/03/2025 Start: 10-04-2024 End: 01-03-2025 SYPHILIS TREPONEMAL W/REFLEX SYPHILIS TREPONEMAL W/REFLEX Lab Routine with uncertain dates in first trimester Expected: 10/04/2024, Expires: 01/03/2025 [facility] Comment on above: Expected: 10/04/2024 , Expires: 01/03/2025 Start: 10-04-2024 End: 01-03-2025 TYPE + SCREEN TYPE + SCREEN Blood Bank Routine with uncertain dates in first trimester Expected: 10/04/2024, Expires: 01/03/2025 [facility] Comment on above: Expected: 10/04/2024 , Expires: 01/03/2025 Start: 03-18-2024 Covid-19 Vaccine ( season) Covid-19 Vaccine () [facility] Start: 03-18-2024 Influenza vaccination Influenza Vacc ine (#1) [facility] Start: 12-14-2023 Screening for malign ant neoplasm of cervix Cervical Cancer Screening [facility] Start: 2021 Hepatitis B Vaccine (1 of 3 - 19+ 3-dose series) Hepatitis B Vaccine (1 of 3 - 19+ 3-dose series) [facility] Start: 2021 Urine microalbumin profile DTaP,Tdap,Td Vaccine (1 - Tdap) [facility] Start: 2020 Annual PCP Team Component Lab Tech chester Disease Visit Annual PCP Team Chronic Disease Visit [facility] Start: 2020 Anxiety Screening Anxiety Screening [facility] Start: 2020 Depression Screening Depression Scre ening [facility] Start: 2020 GC (Gonorrhea) Screening (18-24) GC (Gonorrhea) Screening (18-) [facility] Start: 2020 Hepatitis C screening Hepatitis C Sc reening [facility] Start: 2020 HIV screening HIV Screening [facility] Start: 2020 Screening for Chlamy radha trachomatis Chlamydia Screening (18-) [facility] Start: 2018 Meningococcal B Vacc ine (1 of 2 - Standard) Meningococcal B Vaccine (1 of 2 - Standard) [facility] Start: 2017 HPV Vaccine (1 - 3-d ose series) HPV Vaccine (1 - 3-dose series) [facility] Start: 2016 Peds To Adult Transition Annual Assessment Peds To Adult Transition Annual Assessment [facility] Start: 2014 Peds To Adult Transition Initial Discussion Peds To Adult Transition Initial Discussion [facility] Start: 2006 Asthma Control Test Asthma Control T est [facility] Start: 2004 Asthma Action Plan Asthma Action Yang n [facility] Bacteria identified in Urine by Culture BACTERIAL CULTURE, URINE Microbiology Routine with uncertain dates in first trimester 10/04/2024 9:34 AM EDT [facility] Chlamydia trachomatis+Neisseria gonorrhoeae DNA [Presence] in Unspecified specimen by LETTY with probe detection GONORRHEA/CHLAMYDIA NAAT Lab Routine with uncertain dates in first trimester 10/04/2024 9:34 AM EDT [facility] PAP TEST PAP TEST Lab Rou jo with uncertain dates in first trimester Screening for cervical cancer Screening for human papillomavirus 10/04/2024 9:34 AM EDT [facility] TRICHOMONAS VAGINALI S NAAT TRICHOMONAS VAGINALIS NAAT Lab Routine with uncertain dates in first trimester 10/04/2024 9:34 AM EDT [facility] URINE OB DIP B/O URINE OB DIP B/ O Lab Routine Encounter for supervision of normal first in second trimester (HCC) Ordered: 02/26/2025 [facility] Work Phone: Comment on above: Ordered: 02/26/2025 Immunizations Immunization Date Immunization Notes Care Provider Sheri gill 02-26-2025 RHO(D) immune globulin- IV or IM Hanh Acevedo MD Work Phone: [facility] Work Phone: NEGATED: Highlighted row has not occurred!02-26-2025 RHO(D) immune globulin- IV or IM Hanh Acevedo MD Work Phone: [facility] Payers Date Payer Category Payer Private Health Insurance MMO [employer] PPO [id number] 2025 Unknown [id number] 2024 Self-pay 2024 Blue [employer] Blue [facility] BLUE [facility] PPO [id number] 2024 Unknown [id number] Unknown [id number] Unknown [id number] Unknown [id number] Social History Date Type Detail Facility [facility]: [facility] Start: 10-02-2024 Tobacco use and exposure Smokeless t obacco non-user [facility] Start: 10-04-2024 End: 02-05-2025 Alcoholic beverage intake Ex-drinker (finding) [facility] Start: 10-04-2024 End: 11-14-2024 History of Social function [facility] Start: 10-04-2024 End: 11-14-2024 Tobacco use panel [facility] Start: 10-02-2024 Education 13 [facility] Start: 10-02-2024 Alcohol Comment occasionally [facility] Start: 08-28-2024 [facility] Start: 2002 Sex assigned at Not on file [facility] Start: 09-12-2024 National Score (1-10 0), lower number is lower risk 50 [facility] Goals Date Patient Goal Desired Activity /State Personal health goal Clinical Notes 10-02-2024 to 05-14-2025 Quick Notes - Corrie Garcia APRN.[facility] - 03/29/2025 11:08 AM EDTPrenatal Quick Notes - Corrie Garcia APRN.[facility] - 03/29/2025 11:08 AM EDTPatient InstructionsPatient Instructions Note Date & Type Note Facility 05-14-2025 Note HNO ID: [id number] Author: FRED LI, ? Service: ? Author Type: Patient Vice President Quality Assurance Type: Progress Notes Filed: 05/15/2025 09:30 Note Text: POPULATION HEALTH NAVIGATION OUTREACH Action/I 3 rd attempt Unable message to add yarn examiner skeins to OB provider field, verify/est pcp mailbox full My chart sent Reason for Outreach Medicaid OB/Peds Care Gaps due: N/A Patient Contacted: Unable or unnecessary to reach patient: Unable to reach patient Unable to leave message [employer] message sent Navigation Signature: Fred Li Population Health Navigator May 14, 2025 10:53 AM [facility] 05-14-2025 Note Patient Outreach (NE TNAV) ROSAS BRITTON ([id number]) 4 F Date Time Provider Department 05/14/25 FRED LI During your visit today, we recorded the following information about you: Fred Li 05/15/2025 9:30 AM Addendum POPULATION HEALTH NAVIGATION OUTREACH Action/I 3 rd attempt Unable message to add yarn examiner skeins to OB provider field, verify/est pcp mailbox [...] Encounter Status:Closed by FRED LI on 05/14/25 [facility] 05-10-2025 Note HNO ID: [id number] Author: PALMA MUÑOZ MA Service: ? Author Type: Stewarding Supervisor Type: Progress Notes Filed: 05/10/2025 11:50 Note Text: POPULATION HEALTH NAVIGATION OUTREACH Action/ 2nd attempt: Called and unable to leave message to call back . Reason for Outreach Medicaid OB/Peds Care Gaps due: N/A Patient Contacted: Unable or unnecessary to reach patient: Unable to reach patient Unable to leave message Navigation Signature: Palma Fleming MA May 10, 2025 11:49 AM [facility] 05-09-2025 Note HNO ID: [id number] Author: PALMA MUÑOZ MA Service: ? Author Type: Stewarding Supervisor Type: Progress Notes Filed: 05/09/2025 13:29 Note Text: POPULATION HEALTH NAVIGATION OUTREACH Action/ 1st attempt: Called and unable to leave message to call back to discuss yarn examiner skeins. MC message sent. Reason for Outreach Medicaid OB/Peds Care Gaps due: N/A Patient Contacted: Unable or unnecessary to reach patient: Unable to reach patient Unable to leave message [employer] message sent Navigation Signature: Palma Fleming MA May 09, 2025 1:29 PM [facility] 05-09-2025 Note Patient Outreach (NE TNAV) ROSAS BRITTON ([id number]) 4 F Date Time Provider Department 05/09/25 PALMA MUÑOZ During your visit today, we recorded the following information about you: Palma Muñoz MA 05/09/2025 1:29 PM Signed POPULATION HEALTH NAVIGATION OUTREACH Action/ 1st attempt: Called and unable to leave message to call back to discuss yarn examiner skeins. MC message sent. Reason for Outreach Medicaid OB/Peds Care Gaps due: N/A Patient Contacted: Unable or unnecessary to reach patient: Unable to reach patient Unable to leave message [employer] message sent Navigation Signature: Palma Fleming MA [...] Encounter Status:Closed by PALMA MUÑOZ on 05/09/25 [facility] 03-29-2025 Progress note Formatting of t [...] or sooner if needed Corrie Garcia APRN.CNM [facility] 03-29-2025 Miscellaneous Notes Formattin g of [...] Corrie Garcia APRN.CNM documented in this encounter [facility] 03-29-2025 Instructions Graciela Blair MA - 03/29/2025 10:56 AM EDT SEQUENTIAL SCREENINGS The [facility] offers sequential screenings for women who [...] It will require an appointment with our biology specimen technician. This is not an ultrasound performed [...] the above symptoms, contact our office at [phone] and ask to speak with a nurse. After hours, you can call doctors registry at [phone] OR call [facility] at [phone] and ask to have the doctor conversion developer paged. If you consider this an emergency, dial or go to your nearest emergency department. NEED HELP? Are you dealing with a violent or abusive relationship? Are you a victim of rape or sexual assult? Call [facility] ([facility] 24 hour Crisis Hotline: 391.112.6990 or 973-198-7296. MANUAL Your Guide to a Healthy manual is now on-line. Visit [email or web address] [email or web address] to download your free copy documented in this encounter [facility] 03-14-2025 Progress note Formatting of t his note might be different from the original. S: Rosas Britton is a 24 year old female who presents at 30 weeks gestation for a routine visit. Positive movements. Recent feelings of fatigue/malaise- unsure if getting sick. [place]ualar shaky at work and drank soda and [...] spontaneous onset of labor and epidural - Windows Application Packager handout given - Interested in eating dates/ red raspberry leaf tea- hand out given - PTL precautions reviewed and when to call office - RTO 2 weeks Corrie Garcia APRN.CNM [facility] 03-14-2025 Miscellaneous Notes Formattin g of this note might be different from the original. S: Rosas Britton is a 24 year old female who presents at 30 weeks gestation for a routine visit. Positive movements. Recent feelings of fatigue/malaise- unsure if getting sick. Chualar shaky at work and drank soda and [...] spontaneous onset of labor and epidural - Windows Application Packager handout given - Interested in eating dates/ red raspberry leaf tea- hand out given - PTL precautions reviewed and when to call office - RTO 2 weeks Corrie Garcia APRN.CNM documented in this encounter [facility] 03-14-2025 Note HNO ID: [id number] Author: CORRIE GARCIA APRN.CNM Service: ? Author Type: Leases And Land Supervisor Type: Progress Notes Filed: 03/14/2025 11:36 Note Text: Subjective Rosas Britton is a 24 year old female. HPI Review of Systems Objective BP 110/60 Wt 91.6 kg (202 lb) LMP 08/08/2024 (Approximate) BMI 33.61 kg/m? Physical Exam [facility] 03-14-2025 History of Presen t illness Narrative Subjective Rosas Britton is a 24 year old female. HPI Review of Systems Objective BP 110/60 Wt 91.6 kg (202 lb) LMP 08/08/2024 (Approximate) BMI 33.61 kg/m Physical Exam documented in this encounter [facility] 03-14-2025 Instructions Corrie Garcia APRN.CNM - [...] make an easy pie crust in the seafood preparer. Add soaked dates to homemade nut butter for a sweet treat. Add dates to lyssa homemade salad dressing. Add dates during easily with these yummy (paleo friendly) bars made from dates. What Is Red Raspberry Sidney Tea? Red raspberry leaf tea comes from [...] , and too. How Much Red Raspberry Sidney Tea to Drink? With your doctor or account specialist s approval, start with 1 cup of [...] because of uterine cramping. Is Red Raspberry Sidney Tea the Same as Raspberry Sidney Tea? How About Plain Old Raspberry Tea? Sometimes. You really need to look at the ingredients to be sure. Note that there is no difference between red raspberry leaf and raspberry leaf. [employer]azer or Haolianluo Raspberry Sidney Tea are two good brands. The red [...] of RRLT outlined in this article. [employer] www.[employer] I named this 'circuit' after my friend [...] sideways, 2 at a time, (have a tissue inserter downstairs of you!), take a walk outside [...] BDT (STACY), LCCE, FACCE: Supporting Content - www.james.[employer] Stevenmegan Carrasco Wan: Photography - www.[email or web address].[employer] Sharon Jeff AUGUSTE/CDT (ELLA): Print and Vocational Ed Instructor - www.[email or web address].[employer] www.[employer] SEQUENTIAL SCREENINGS The [facility] offers sequential screenings for women who [...] It will require an appointment with our biology specimen technician. This is not an ultrasound performed [...] the above symptoms, contact our office at [phone] and ask to speak with a nurse. After hours, you can call doctors registry at [phone] OR call [facility] at [phone] and ask to have the doctor conversion developer paged. If you consider this an emergency, dial 9-1-1 or go to your nearest emergency department. NEED HELP? Are you dealing with a violent or abusive relationship? Are you a victim of rape or sexual assult? Call [facility] ([place]) 24 hour Crisis Hotline: 280.425.7812 or 489-452-6256. MANUAL Your Guide to a Healthy manual is now on-line. Visit [email or web address]/[email or web address] gnancyGuide to download your free copy documented in this encounter [facility] 03-06-2025 Telephone encount er Note Order signed and faxed. Caitlyn Kahn RN [facility] 03-06-2025 Miscellaneous Notes Formattin g of this note might be different from the original. Order signed and faxed. Caitlyn Kahn RN Breast pump order received from [facility]. To CP to sign. Molly Romero RN documented in this encounter [facility] 03-04-2025 Telephone encount er Note Breast pump order received from [facility]. To CP to sign. Molly Romero RN [facility] 02-26-2025 Note HNO ID: [id number] Author: CARL SPICER LPN Service: ? Author [...] her Rhophylac pocket card. Carl Spicer LPN [facility] 02-26-2025 History of Presen t illness [...] Carl Spicer LPN documented in this encounter [facility] 02-26-2025 Progress note Formatting of t [...] supervision of normal first in second trimester ([facility]) Orders: URINE OB DIP B/O Rh negative state in antepartum period ([facility]) Rhogam today Orders: RhoD immune globulin 300 mcg injection (RHOPHYLAC) 28 weeks gestation of ([facility]) RTO 2 wks Kick counts Labs today Declines tdap Declines larc- form signed Orders: RhoD immune globulin 300 mcg injection (RHOPHYLAC) Hanh Culver MD [facility] 02-26-2025 Miscellaneous Notes Formattin g of [...] supervision of normal first in second trimester ([facility]) Orders: URINE OB DIP B/O Rh negative state in antepartum period ([facility]) Rhogam today Orders: RhoD immune globulin 300 mcg injection (RHOPHYLAC) 28 weeks gestation of (HCC) RTO 2 wks Kick counts Labs today Declines tdap Declines larc- form signed Orders: RhoD immune globulin 300 mcg injection (RHOPHYLAC) Hanh Culver MD documented in this encounter [facility] 02-26-2025 Instructions Melany Marcos MA - 02/26/2025 8:00 AM EDT SEQUENTIAL SCREENINGS The [facility] offers sequential screenings for women who [...] It will require an appointment with our biology specimen technician. This is not an ultrasound performed [...] the above symptoms, contact our office at [phone] and ask to speak with a nurse. After hours, you can call doctors registry at [phone] OR call [facility] at [phone] and ask to have the doctor conversion developer paged. If you consider this an emergency, dial 1--4 or go to your nearest emergency department. NEED HELP? Are you dealing with a violent or abusive relationship? Are you a victim of rape or sexual assult? Call [facility] ([place]) 24 hour Crisis Hotline: 805.526.4819 or 360-486-1169. MANUAL Your Guide to a Healthy manual is now on-line. Visit [email or web address]/HealthyPre gnancyGuide to download your free copy documented in this encounter [facility] 02-05-2025 Progress note Formatting of t his note might be different from the original. RR- doing well. No VB/LOF. Taking PNV. F/u in 3-4 weeks or prn for 28 week labs. Rafal Resendiz MD [facility] 02-05-2025 Miscellaneous Notes Formattin g of this note might be different from the original. RR- doing well. No VB/LOF. Taking PNV. F/u in 3-4 weeks or prn for 28 week labs. Rafal Resendiz MD documented in this encounter [facility] 02-05-2025 Instructions Palma Cook MA - 02/05/2025 12:35 PM EDT SEQUENTIAL SCREENINGS The [facility] offers sequential screenings for women who [...] It will require an appointment with our biology specimen technician. This is not an ultrasound performed [...] the above symptoms, contact our office at [phone] and ask to speak with a nurse. After hours, you can call doctors registry at [phone] OR call [facility] at [phone] and ask to have the doctor conversion developer paged. If you consider this an emergency, dial 91-0 or go to your nearest emergency department. NEED HELP? Are you dealing with a violent or abusive relationship? Are you a victim of rape or sexual assult? Call [facility] ([place]) 24 hour Crisis Hotline: 603.597.4008 or 622-285-7129. MANUAL Your Guide to a Healthy manual is now on-line. Visit [email or web address] gnancyGuide to download your free copy documented in this encounter [facility] 01-01-2025 Progress note Formatting of t [...] 4 weeks or prn Rafal Resendiz M.D. [facility] 01-01-2025 Miscellaneous Notes Formattin g of [...] Rafal Resendiz M.D. documented in this encounter [facility] 12-12-2024 Progress note Formatting of t [...] supervision of normal first in second trimester ([facility]) Rubella non-immune status, antepartum (HCC) d/w recommendation for booster after deliveryt 17 weeks gestation of (HCC) US in 4 weeks as scheduled d/w her symptomatic measures for mcdaniel cont. PNV nad ASA Rafal Resendiz M.D. [facility] 12-12-2024 Miscellaneous Notes Formattin g of [...] lanre Resendiz M.D. documented in this encounter [facility] 11-14-2024 Progress note Formatting of t [...] or sooner if needed Corrie Garcia APRN.CNM [facility] 11-14-2024 Miscellaneous Notes Formattin g of [...] Corrie Garcia APRN.CNM documented in this encounter [facility] 11-14-2024 Instructions Gayla Bee LPN - 11/14/2024 12:59 PM EDT SEQUENTIAL SCREENINGS The [facility] offers sequential screenings for women who [...] It will require an appointment with our biology specimen technician. This is not an ultrasound performed [...] the above symptoms, contact our office at [phone] and ask to speak with a nurse. After hours, you can call doctors registry at [phone] OR call [facility] at [phone] and ask to have the doctor conversion developer paged. If you consider this an emergency, dial 7-8-7 or go to your nearest emergency department. NEED HELP? Are you dealing with a violent or abusive relationship? Are you a victim of rape or sexual assult? Call [facility] ([place]) 24 hour Crisis Hotline: 582.745.2164 or 367-120-7964. MANUAL Your Guide to a Healthy manual is now on-line. Visit [email or web address]/HealthyPre gnancyGuide to download your free copy documented in this encounter [facility] 10-04-2024 Instructions Jan Leavitt MA - 10/04/2024 8:37 AM EDT Please select the following link to access the [facility] Your Guide to a Healthy . [email or web address] [email or web address] c documented in this encounter [facility] 10-02-2024 Note HNO ID: [id number] Author: CORRIE GARCIA APRN.CNM Service: ? Author Type: Leases And Land Supervisor Type: Progress Notes Filed: 10/04/2024 09:50 Note [...] SKIN: Negative for: (more content not included)... [facility] 10-02-2024 History of Presen t illness [...] discussed with the Patient or Patient's Authorized Ore Tester. As applicable, any other physician, advance practice provider, medical student, or other health professional student that will be observing or involved in the sensitive examination for educational or training purposes was discussed with the Patient or Authorized Ore Tester. The Patient or Authorized Ore Tester has agreed to proceed with the sensitive [...] Your guide to a health and the [employer] Worker. Reviewed midwifery and press operator carbon blocks services that are available. 2) Screening: Hemoglobin [...] Corrie Garcia APRN.CNM documented in this encounter [facility] Evaluation note Diagnosis with uncertain dates [...] of state, incidental [facility] Diagnosis 13 weeks gestation of (HCC)- Primary state, incidental Encounter for supervision of normal first in second trimester ([facility]) Supervision of normal first Encounter for supervision of normal first in first trimester ([facility]) Supervision of normal first [facility] Diagnosis Encounter for screening for malformation using ultrasound ([facility])- Primary Encounter for (NT) nuchal translucency scan ([facility]) Other specified screening 13 weeks gestation of ([facility]) state, incidental [facility] Diagnosis Rubella non-immune status, antepartum ([facility])- Primary Other specified complication, antepartum [facility] Diagnosis Encounter for supervision of normal first in second trimester ([facility])- Primary Supervision of normal first Rubella non-immune status, antepartum (HCC) Other specified complication, antepartum 17 weeks gestation of ([facility]) state, incidental * Assessment & Plan Note - Rafal Resendiz MD - 12/12/2024 10:45 AM EDT Associated Problem(s): Rubella non-immune status, antepartum ([facility]) d/w recommendation for booster after deliveryt documented in this encounter [facility] note* Diagnosis Encounter for supervision of normal first in second trimester ([facility])- Primary Supervision of normal first Rubella non-immune status, antepartum ([facility]) Other specified complication, antepartum 17 weeks gestation of ([facility]) state, incidental Encounter for anatomic survey ([facility]) [Z36.89]- Primary Encounter for anatomic survey with uncertain dates in first trimester ([facility]) documented in this encounter [facility] note* Diagnosis Encounter for supervision of normal first in second trimester ([facility])- Primary Supervision of normal first Rubella non-immune status, antepartum ([facility]) Other specified complication, antepartum 17 weeks gestation of ([facility]) state, incidental Encounter for supervision of normal first in second trimester ([facility])- Primary Supervision of normal first 20 weeks gestation of ([facility]) state, incidental documented in this encounter [facility] note* Diagnosis Encounter for supervision of normal first in second trimester ([facility])- Primary Supervision of normal first Rubella non-immune status, antepartum ([facility]) Other specified complication, antepartum 17 weeks gestation of ([facility]) state, incidental Encounter for supervision of normal first in second trimester ([facility])- Primary Supervision of normal first 25 weeks gestation of ([facility]) state, incidental Encounter for supervision of normal first in first trimester ([facility]) Supervision of normal first documented in this encounter [facility] note* Diagnosis Encounter for supervision of normal first in second trimester ([facility])- Primary Supervision of normal first Rubella non-immune status, antepartum ([facility]) Other specified complication, antepartum 17 weeks gestation of ([facility]) state, incidental Encounter for supervision of normal first in second trimester ([facility])- Primary Supervision of normal first Rh negative state in antepartum period ([facility]) Rhesus isoimmunization affecting management of mother, antepartum condition 28 weeks gestation of ([facility]) state, incidental Encounter for supervision of normal first in first trimester ([facility]) Supervision of normal first [facility] Diagnosis Encounter for supervision of normal first in second trimester ([facility])- Primary Supervision of normal first Rubella non-immune status, antepartum ([facility]) Other specified complication, antepartum 17 weeks gestation of ([facility]) state, incidental Encounter for supervision of normal first in second trimester ([facility])- Primary Supervision of normal first 30 weeks gestation of ([facility]) state, incidental Rh negative state in antepartum period ([facility]) Rhesus isoimmunization affecting management of mother, antepartum condition Rubella non-immune status, antepartum ([facility]) Other specified complication, antepartum documented in this encounter [facility] note* Diagnosis Encounter for supervision of normal first in second trimester ([facility])- Primary Supervision of normal first Rubella non-immune status, antepartum ([facility]) Other specified complication, antepartum 17 weeks gestation of ([facility]) state, incidental Encounter for supervision of normal first in second trimester ([facility])- Primary Supervision of normal first 32 weeks gestation of ([facility]) state, incidental Rh negative state in antepartum period ([facility]) Rhesus isoimmunization affecting management of mother, antepartum condition documented in this encounter [facility] Summary Purpose Family History No Family [...] or prosecute any alcohol or drug abuse patient.[facility] the event this information is protected by the Federal Confidentiality of Alcohol and Drug Abuse Patient Records regulations: The Federal rules restrict any use of the information to criminally investigate or prosecute any alcohol or drug abuse patient.[facility] the event this information is protected by the Federal Confidentiality of Alcohol and Drug Abuse Patient Records regulations: The Federal rules restrict any use of the information to criminally investigate or prosecute any alcohol or drug abuse patient.[facility] the event this information is protected by the Federal Confidentiality of Alcohol and Drug Abuse Patient Records regulations: The Federal rules restrict any use of the information to criminally investigate or prosecute any alcohol or drug abuse patient.[facility] the event this information is protected by the Federal Confidentiality of Alcohol and Drug Abuse Patient Records regulations: The Federal rules restrict any use of the information to criminally investigate or prosecute any alcohol or drug abuse patient.[facility] the event this information is protected by the Federal Confidentiality of Alcohol and Drug Abuse Patient Records regulations: The Federal rules restrict any use of the information to criminally investigate or prosecute any alcohol or drug abuse patient.[facility] the event this information is protected by the Federal Confidentiality of Alcohol and Drug Abuse Patient Records regulations: The Federal rules restrict any use of the information to criminally investigate or prosecute any alcohol or drug abuse patient.[facility] the event this information is protected by the Federal Confidentiality of Alcohol and Drug Abuse Patient Records regulations: The Federal rules restrict any use of the information to criminally investigate or prosecute any alcohol or drug abuse patient.[facility] the event this information is protected by the Federal Confidentiality of Alcohol and Drug Abuse Patient Records regulations: The Federal rules restrict any use of the information to criminally investigate or prosecute any alcohol or drug abuse patient.[facility] the event this information is protected by the Federal Confidentiality of Alcohol and Drug Abuse Patient Records regulations: The Federal rules restrict any use of the information to criminally investigate or prosecute any alcohol or drug abuse patient.[facility] the event this information is protected by the Federal Confidentiality of Alcohol and Drug Abuse Patient Records regulations: The Federal rules restrict any use of the information to criminally investigate or prosecute any alcohol or drug abuse patient.[facility] the event this information is protected by the Federal Confidentiality of Alcohol and Drug Abuse Patient Records regulations: The Federal rules restrict any use of the information to criminally investigate or prosecute any alcohol or drug abuse patient.[facility] the event this information is protected by the Federal Confidentiality of Alcohol and Drug Abuse Patient Records regulations: The Federal rules restrict any use of the information to criminally investigate or prosecute any alcohol or drug abuse patient.[facility] Reason for Visit (unrecogniz ed section and content) Reason Comments Initial OB Visit Reason Onset Date Comments Care 11/14/2024 Reason Comments US Specialty Diagnoses / Procedures Referred By Hailee fagan Referred To Contact [facility] Diagnoses with uncertain dates in first trimester (HCC) Procedures OBSTETRIC ULTRASOUND WHI US PREG UTERUS AFTER 1ST TRIMEST GESTATION Corrie Garcia APRN.[facility] [address] [place] [address] Phone: tel: fax: [facility] [address] [place] [address] Referral ID Status Reason Start Date Expiration Date V isits Requested Visits Authorized [id number] Closed Auto-Generate d Referral 10/04/2024 10/04/2025 1 1 Reason Comments Care Referral ID Status Reason Start Date Expiration Date V isits Requested Visits Authorized [id number] Closed Auto-Generate d Referral 10/04/2024 10/04/2025 1 1 Reason Onset Date Comments Care 02/05/2025 Reason Onset Date Comments Care 02/26/2025 Reason Comments Breast Pump Reason Onset Date Comments Care 03/14/2025 Reason Onset Date Comments Care 03/29/2025 INFORMATION SOURCE (unrecogn ized section and content) DATE CREATED AUTHOR 05/20/2025 [facility] DATE CREATED AUTHOR AUTHOR'S ORGANIZ ATION 05/27/2025 [facility] FOR RECORDS PERTAINING TO PATIENTS WHO ARE [...] BE BASED ON THE PRIMARY CLINICAL RECORDS. [employer] provides no warranty or guarantee of the accuracy or completeness of information in this document.
[2025-05-27] MEDS: Lactated Ringers 1,000 ML 999 ML IV (04:50)
[2025-05-27 05:07] LABS: Hematocrit 36.0 % (37-47); Hemoglobin 12.1 g/dL (12.0-15.0); Immature Granulocytes Count 0.070 X10^3/uL (0.0-0.0); Mean Corp Hgb Conc 33.6 g/dL (32-36); Mean Corpuscular Volume 77.8 fL (81-99); Mean Platelet Vol. 9.8 fl (6.2-12.0); NRBC Flagged by Analyzer 0 % (0-5); Platelet Count 191 K/mm3 (150-450); RBC Distribution Width CV 12.8 % (11.6-14.6); RBC Distribution Width SD 35.4 fl (35.1-43.9); Red Blood Count 4.63 M/mm3 (4.2-5.4); White Blood Count 13.5 K/mm3 (4.4-11.0)
[2025-05-27 05:37] LABS: Syphilis Antibodies Nonreactive (Nonreactive)
[2025-05-27] MEDS: fentaNYL-bupivacaine (epidural) 100 ML BAG EPIDURAL ×2 (05:55→10:17)
[2025-05-27] MEDS: LACTATED RINGERS 500 ML 999 ML IV (05:55)
[2025-05-27] MEDS: Lactated Ringers 1,000 ML 200 ML IV ×2 (06:36→09:15)
--- NOTE | 2025-05-27 08:08 | HP.PCM.OB_ITS ---
HPI - General General Date of Admission: 05/27/25 HPI Narrative MARCELLE BRITTON, is a 24 F @ 40.6 weeks who presents in labor PFSH PFS Home Medications Medication Instructions Recorded Last Taken Type aspirin 81 mg chewable tablet 1 tab PO DAILY 05/26/25 05/25/25 History (Aspirin Childrens) vitamins no.102-iron 90 1 cap PO DAILY Pregna ncy 05/26/25 05/25/25 History mg-folate 1 mg-dha 200 mg capsule Allergy/AdvReac Type Severity Reaction Status Date / Time No Known Allergies Allergy Verified 05/27/25 04:20 Social History Smoking Status: Never smoker History Elective abortions Hx Para 0 Spontaneous abortions Hx # Term Pregnancies Ectopic pregnancies Hx # Pregnancies Multiple births # of living children NST FHR Rate Baby A Baseline: 120 Variability:: Moderate Accelerations:: 15 x 15 Decelerations:: None NST Reactive:: Yes FHR Category:: Category I Uterine Activity:: 2-5 Vital Signs Vital Signs Vital Signs: 05/27/25 04:00 05/27/25 04:00 05/27/25 04:00 Temperature 98.1 F Temperature Source Pulse Rate 82 Respiratory Rate Blood Pressure BP Systolic BP Diastolic Pulse Ox 98 05/27/25 04:01 05/27/25 04:01 05/27/25 04:01 Temperature Temperature Source Pulse Rate 82 Respiratory Rate 18 Blood Pressure 119/80 BP Systolic 119 BP Diastolic 80 Pulse Ox 05/27/25 05:33 05/27/25 05:33 05/27/25 05:33 Temperature Temperature Source Pulse Rate 99 Respiratory Rate Blood Pressure 131/83 H BP Systolic 131 BP Diastolic 83 Pulse Ox 100 05/27/25 05:33 05/27/25 05:38 05/27/25 05:38 Temperature Temperature Source Pulse Rate 91 Respiratory Rate 18 Blood Pressure 147/65 H BP Systolic 147 BP Diastolic 65 Pulse Ox 05/27/25 05:38 05/27/25 05:38 05/27/25 05:43 Temperature Temperature Source Pulse Rate 92 Respiratory Rate 18 Blood Pressure BP Systolic BP Diastolic Pulse Ox 99 05/27/25 05:43 05/27/25 05:44 05/27/25 05:44 Temperature Temperature Source Pulse Rate 90 Respiratory Rate Blood Pressure 153/67 H BP Systolic 153 BP Diastolic 67 Pulse Ox 98 05/27/25 05:44 05/27/25 05:48 05/27/25 05:48 Temperature Temperature Source Pulse Rate 92 Respiratory Rate 16 Blood Pressure BP Systolic BP Diastolic Pulse Ox 98 05/27/25 05:53 05/27/25 05:53 05/27/25 05:53 Temperature Temperature Source Pulse Rate 88 Respiratory Rate Blood Pressure 109/64 BP Systolic 109 BP Diastolic 64 Pulse Ox 96 05/27/25 05:53 05/27/25 05:58 05/27/25 05:58 Temperature Temperature Source Pulse Rate 85 Respiratory Rate 16 Blood Pressure BP Systolic BP Diastolic Pulse Ox 100 05/27/25 05:59 05/27/25 05:59 05/27/25 05:59 Temperature Temperature Source Pulse Rate 85 Respiratory Rate 18 Blood Pressure 109/60 BP Systolic 109 BP Diastolic 60 Pulse Ox 05/27/25 06:03 05/27/25 06:03 05/27/25 06:03 Temperature Temperature Source Pulse Rate 82 Respiratory Rate 16 Blood Pressure 103/58 L BP Systolic 103 BP Diastolic 58 Pulse Ox 05/27/25 06:03 05/27/25 06:03 05/27/25 06:08 Temperature Temperature Source Pulse Rate 84 Respiratory Rate Blood Pressure 109/59 L BP Systolic 109 BP Diastolic 59 Pulse Ox 100 05/27/25 06:08 05/27/25 06:08 05/27/25 06:08 Temperature Temperature Source Pulse Rate 90 Respiratory Rate 16 Blood Pressure BP Systolic BP Diastolic Pulse Ox 100 05/27/25 06:13 05/27/25 06:13 05/27/25 06:13 Temperature Temperature Source Pulse Rate 83 Respiratory Rate Blood Pressure 104/57 L BP Systolic 104 BP Diastolic 57 Pulse Ox 100 05/27/25 06:13 05/27/25 06:18 05/27/25 06:18 Temperature Temperature Source Pulse Rate 85 Respiratory Rate 16 Blood Pressure BP Systolic BP Diastolic Pulse Ox 100 05/27/25 06:19 05/27/25 06:19 05/27/25 06:19 Temperature Temperature Source Pulse Rate 87 Respiratory Rate 16 Blood Pressure 109/61 BP Systolic 109 BP Diastolic 61 Pulse Ox 05/27/25 06:23 05/27/25 06:23 05/27/25 06:23 Temperature Temperature Source Pulse Rate 79 86 Respiratory Rate Blood Pressure 111/65 BP Systolic 111 BP Diastolic 65 Pulse Ox 05/27/25 06:23 05/27/25 06:23 05/27/25 06:28 Temperature Temperature Source Pulse Rate Respiratory Rate 16 Blood Pressure 110/59 L BP Systolic 110 BP Diastolic 59 Pulse Ox 100 05/27/25 06:28 05/27/25 06:28 05/27/25 06:28 Temperature Temperature Source Pulse Rate 88 88 Respiratory Rate Blood Pressure BP Systolic BP Diastolic Pulse Ox 100 05/27/25 06:28 05/27/25 06:33 05/27/25 06:33 Temperature Temperature Source Pulse Rate 89 Respiratory Rate 18 Blood Pressure BP Systolic BP Diastolic Pulse Ox 100 05/27/25 06:37 05/27/25 06:37 05/27/25 06:37 Temperature Temperature Source Pulse Rate 85 Respiratory Rate 18 Blood Pressure 99/62 BP Systolic 99 BP Diastolic 62 Pulse Ox 05/27/25 06:38 05/27/25 06:38 05/27/25 06:43 Temperature Temperature Source Pulse Rate 84 Respiratory Rate Blood Pressure 106/65 BP Systolic 106 BP Diastolic 65 Pulse Ox 100 05/27/25 06:43 05/27/25 06:43 05/27/25 06:43 Temperature Temperature Source Pulse Rate 91 Respiratory Rate 18 Blood Pressure BP Systolic BP Diastolic Pulse Ox 100 05/27/25 06:48 05/27/25 06:48 05/27/25 06:48 Temperature Temperature Source Pulse Rate 91 Respiratory Rate Blood Pressure 111/70 BP Systolic 111 BP Diastolic 70 Pulse Ox 100 05/27/25 06:48 05/27/25 06:48 05/27/25 06:48 Temperature 97.2 F L Temperature Source Temporal Pulse Rate Respiratory Rate 18 Blood Pressure BP Systolic BP Diastolic Pulse Ox 05/27/25 06:48 05/27/25 07:22 05/27/25 07:22 Temperature 97.1 F L Temperature Source Pulse Rate 89 Respiratory Rate Blood Pressure 111/73 BP Systolic 111 BP Diastolic 73 Pulse Ox 05/27/25 07:22 05/27/25 07:22 05/27/25 07:23 Temperature 96.4 F L Temperature Source Temporal Pulse Rate Respiratory Rate Blood Pressure BP Systolic BP Diastolic Pulse Ox 99 05/27/25 07:23 05/27/25 07:23 Temperature 97.0 F L Temperature Source Pulse Rate Respiratory Rate 16 Blood Pressure BP Systolic BP Diastolic Pulse Ox Weight Weight: 104.78 kg Body Mass Index (BMI) 37.3 Physical Exam Narrative VE: 5//-2 ?? SROM- attempted AROM but no return of fluid- pad under patient felt saturated- clear. IUPC placed. Const alert and oriented x3 General Appearance: cooperative HEENT normocephalic GI GI Narrative: Gravid, non tender to palpation. OB / External & Speculum: external exam normal Extremity normal to inspection Skin no rashes or lesions noted Neuro oriented x3 and CN's II-XII intact bilaterally Psych Appearance: grossly normal Labs Labs Labs: Blood Type A NEGATIVE Antibody Screen NEGATIVE Hct, (37-47) 36.0 % L Hgb, (12.0-15.0) 12.1 g/dL Syphilis Total Ab, (Nonreactive) Nonreactive Assessment & Plan (1) 40 weeks gestation of : (2) Active labor at term: (3) Rubella non-immune status, antepartum: (4) Rh negative state in antepartum period: PLAN: Plan Admit to L&D Mont[facility] FHR/TOCO Epidural if requested for pain Monitor VS Anticipate pitocin if indicated
[2025-05-27] MEDS: Oxytocin 15 Units/NS 250ml 15 UNITS/250 ML IV.SOLN 2 UNITS IV (10:12)
--- NOTE | 2025-05-27 17:00 | OB.VAGDELI_ITS ---
Maternal Data Information Gestational age: 40.6 Vaginal Delivery Maternal Presentation Maternal Presentation: Active Labor Vaginal Delivery Information Procedure Performed: Spontaneous Vaginal Delivery Date of Procedure: 05/27/25 Pre-Procedure Diagnosis: 40 weeks, Active labor, rubella non immune, Rh negative Post-Procedure Diagnosis: same, live female infant Type of anesthesia: Epidural Estimated Blood Loss: 200 Time of Delivery: 16:32 Findings Description of procedure: Patient progressed to fully dilated. Good maternal pushing efforts delivered the head followed by the anterior and posterior shoulder and the rest the 's body without delay. There was a loose nuchal patient delivered through that. Nuchal was then reduced after the was delivered. The infant was placed on mother's chest for immediate skin to skin. Delayed cord clamping was performed. At this time Pitocin was started and placenta delivered intact without complication. Second-degree perineal laceration was appreciated it was repaired using 2-0 Vicryl and 3-0 Rapide. Small amount of bleeding from the hymenal band on the patient's right side multiple [id number] sutures were placed and then pressure was placed hemostasis was then achieved. Presentation: Vertex Amniotic Membrane Rupture Type: Spontaneous Amniotic Fluid Description: Lightly stained meconium Placental Delivery Description: Spontaneous Placenta Disposition: [facility] Specimen collected: No Cord Vessel Description: 3 Vessels Cord Entanglement: Around neck x 1, loose Nuchal Cord Compression: With compression Infant A Gender: Female (1 minute): 8 (5 minute): 9 Delayed Cord Clamping: Yes Treating Plant Pumper md pediatric allergist: No Post Vaginal Deli Medications given after delivery: IV Pitocin Episiotomy Description: None Laceration: Perineal Extension/lac and 2nd degree Complication Complications: No
[2025-05-27] MEDS: Oxytocin 15 Units/NS 250ml 15 UNITS/250 ML IV.SOLN 83 UNITS IV (17:05)
[2025-05-28] VITALS (13 sets, daily range): BP systolic 105–136; BP diastolic 54–78; PULSE 79–91; RESP 14–16; TEMP 36.2–36.7; O2SAT 97–99
--- NOTE | 2025-05-28 08:39 | PCM.PN.OB ---
Subjective Subjective Doing well per patient and nursing staff. Ambulating and taking PO without difficulty. Voiding and passing flatus. Pain controlled. , services for assistance. Denies headache, visual changes, chest pain, shortness of breath, leg pain or increased bleeding. Lochia normal. Objective Data Objective Data Vital Signs: Vital Signs Temp Pulse Resp BP Pulse Ox O2 Del Method 97.5 F L 88 14 105/66 98 Room Air 05/28/25 07:40 05/28/25 07:40 05/28/25 07:40 05/28/25 07:40 05/28/25 07:40 05/28/25 07:40 Oxygen Delivery Method Room Air Weight: 231 lb Body Mass Index (BMI) 37.3 Intake & Output: Intake and Output for Last 24 Hours 05/26/25 05/27/25 05/28/25 23:59 23:59 23:59 Intake Total 3630.00 / 3630.00 Output Total 400 / 400 800 / 800 Balance 3230.00 / 3230.00 -800 / -800 Lab / Micro Data 05/27/25 04:50 ROS Constitutional Constitutional: Reports systems reviewed and no addt'l complaints, except as documented; Denies headache(s) Eyes Eyes: Denies acute decrease in peripheral vision, blurry vision or change in vision ENT HEENT: Reports systems reviewed and no addt'l complaints, except as documented Cardiovascular Cardiovascular: Denies chest pain or dizziness Respiratory/Chest Respiratory/Chest: Denies cough, dyspnea, dyspnea on exertion, shortness of breath at rest or shortness of breath with exertion Gastrointestinal Gastrointestinal: Denies abdominal pain, diarrhea, nausea or vomiting Genitourinary Genitourinary: Denies abdominal discomfort Musculoskeletal Musculoskeletal: Denies limited range of motion Integumentary Integumentary: Reports systems reviewed and no addt'l complaints, except as documented Neurologic Neurologic: Reports systems reviewed and no addt'l complaints, except as documented Psychiatric Psychiatric: Reports systems reviewed and no addt'l complaints, except as documented Endocrine Endocrinology: Reports systems reviewed and no addt'l complaints, except as documented Hematologic/Lymphatic Hematologic/Lymphatic: Reports systems reviewed and no addt'l complaints, except as documented Allergic/Immunologic Allergic/Immunologic: Reports systems reviewed and no addt'l complaints, except as documented Physical Exam Const alert and oriented x3 General Appearance: cooperative Orientation / Consciousness: awake, oriented to person, oriented to place and oriented to time Exam Limitations: no limitations HEENT normocephalic Head and Scalp: normal to inspection, normocephalic and atraumatic Face and Sinus: normal facial exam Eyes General Eye: normal appearance of both eyes Neck full ROM Chest Chest: symmetrical chest wall rise Resp normal respiratory effort and normal air movement Auscultation: clear to auscultation bilaterally Cardio regular rate, regular rhythm, S1 normal heart sound, S2 normal heart sound, no murmurs, no rub, no gallops and no clicks GI normal to inspection, nondistended, normoactive bowel sounds and non-tender GI Narrative: Fundus firm 2 below U appearance of the vagina normal Narrative: Normal lochia rubra Bladder / Kidney Exam: no CVA tenderness Back/Spine normal ROM Extremity normal to inspection and full ROM Skin no rashes or lesions noted Neuro oriented x3, CN's II-XII intact bilaterally and moves all extremities Sensorium / Orientation: awake, alert and oriented to person Motor Exam: clonus absent Deep Tendon Reflexes: Rt Patellar (L4): 2+ and Lt Patellar (L4): 2+ Assessment & Plan (1) Vaginal delivery: (2) Lactating mother: PLAN: Plan 1) Routine PPD#1 2) Vitals stable 3) I&O 4) Pain management 5) services PRN 6) Planning D/C home tomorrow
[2025-05-29 02:26] VITALS: PULSE 76; TEMP 36.1; O2SAT 98
[2025-05-29 02:27] VITALS: BP 98/54; PULSE 75; PULSE 76; RESP 16; TEMP 36.1; O2SAT 98
--- NOTE | 2025-05-29 08:31 | PCM.PN.OB ---
Subjective Subjective Doing well. Ambulating and voiding without difficulty. Mild lochia. Breast feeding. Objective Data Objective Data Vital Signs: Vital Signs Temp Pulse Resp BP Pulse Ox O2 Del Method 97 F L 76 16 98/54 L 98 Room Air 05/29/25 02:27 05/29/25 02:27 05/29/25 02:27 05/29/25 02:27 05/29/25 02:27 05/29/25 02:27 Oxygen Delivery Method Room Air Weight: 104.78 kg Body Mass Index (BMI) 37.3 Intake & Output: Intake and Output for Last 24 Hours 05/27/25 05/28/25 05/29/25 23:59 23:59 23:59 Intake Total 3630.00 / 3630.00 Output Total 400 / 400 1050 / 1050 Balance 3230.00 / 3230.00 -1050 / -1050 Lab / Micro Data 05/27/25 04:50 ROS Constitutional Constitutional: Denies headache(s) Cardiovascular Cardiovascular: Denies chest pain or dyspnea Gastrointestinal Gastrointestinal: Denies nausea or vomiting Genitourinary Genitourinary: Denies dysuria Physical Exam Const alert, oriented x3 and no apparent distress General Appearance: cooperative and comfortable Eyes PERRL and EOMs intact bilaterally Resp normal respiratory effort GI soft to palpation and non-tender Narrative: Fundus firm, below umbilicus. Uterus Palpation: uterus fundus firm ( below umbilicus) Extremity normal to inspection and full ROM Neuro oriented x3 and CN's II-XII intact bilaterally Psych mental status grossly normal Assessment & Plan (1) Vaginal delivery: (2) Lactating mother: PLAN: Plan Discharge home
--- NOTE | 2025-05-29 08:32 | PCM.DC.SUM ---
Providers Date of Admission: 05/27/25 Date of Discharge: 05/29/25 Primary Care Physician: Elvie Primary Care Phys Reason For Visit: VAGINAL DELIVERY Diagnosis Discharge Diagnosis (1) Vaginal delivery: Status: Acute Code(s): O80 - Encounter for full-term uncomplicated delivery (2) Lactating mother: Status: Acute Code(s): Z39.1 - Encounter for care and examination of lactating mother Plan Discharge home Medications at Discharge Home Medications vitamins no.102-iron 90 mg-folate 1 mg-dha 200 mg capsule 1 cap PO DAILY 05/26/25 Hospital Course Operations None Procedures None Summary of Care Provided Minutes Spent on Discharge: 20 Hospital Course: without complication Breast feeding Physical Exam Const alert and no apparent distress Narrative: Fundus firm, below umbilicus. Weight / BMI Weight Weight: 104.78 kg Body Mass Index (BMI) 37.3 ABG / Lab / Microbiology Data 05/27/25 04:50 D/C Instructions May resume sexual activity in: 6 weeks DC O2, CPAP, BIPAP Needs Home O2 Discharge instructions: No Please Follow Up With: Aparna Resendiz MD When: Follow up with our office in 1-2 and 6 weeks or as needed. [phone] Meaningful Use Info Meaningful Use Meaningful Use Diagnoses (Choose all that apply): None applicable Discharge Plan Admission Admit Date/Time: 05/27/25 04:35 Primary Reason for Your Visit: labor Attending Provider: Hanh Culver Primary Care Provider: Jhonny Kamara,Elvie Primary Discharge Orders/Prescriptions Prescriptions: Continued PNV 723-[id number]-[id number]-[id number] 90 mg iron- 1 mg-200 mg capsule 1 cap PO DAILY Discontinued aspirin [Aspirin Childrens] 81 mg tablet,chewable 1 tab PO DAILY Referrals / Follow Up: Care Physician,No Primary [Primary Care Provider, Medical] Disposition Disposition (needs filled in before D/C Order can be placed): Home, Self Care
[2025-05-29 09:00] VITALS: BP 100/59; PULSE 85; RESP 16; TEMP 36.6; O2SAT 99
[2025-05-29 09:14] VITALS: BP 100/59; PULSE 85
== END 2025-05-29 10:55 | disposition home or self-care (01) | DRG 807 ==
LOC: WPOUT 04:42 → WP 04:42
PROVIDERS: Obstetrics & Gynecology; Admitting Provider Obstetrics & Gynecology; Visit Provider Obstetrics & Gynecology
DX: O70.1 Second degree perineal laceration during delivery (principal); Z37.0 Single live birth; O48.0 Post-term pregnancy; Z79.82 Long term (current) use of aspirin; Z3A.40 40 weeks gestation of pregnancy; O69.81X0 Labor and delivery complicated by cord around neck, without compression, not applicable or unspecified; Z67.91 Unspecified blood type, Rh negative; O77.0 Labor and delivery complicated by meconium in amniotic fluid
CPT/HCPCS: 59050; 85025; 86780; 86850; 86900; 86901; 99221; G0378; J2405